=== PATIENT | female | born 1935 | race Caucasian/White ===

== ENCOUNTER 2016-12-27 01:21 | Inpatient (IN) | payer MEDICARE ==
[2016-12-27] MEDS ORDERED: SODIUM CHLORIDE 0.9% 1,000 ML IV STA (01:42)
[2016-12-27 01:58] LABS: Glucose,Whole Blood 110 mg/dL (75-99)
[2016-12-27 01:59] LABS: Basophils # (A) 0.1 k/uL (0-0.2); Basophils % (A) 1 %; CH 29.9; CHCM 32.3; Eosinophils # (A) 0.4 k/uL (0-0.7); Eosinophils % (A) 5 %; HCT 44.1 % (34.0-46.0); HDW 2.69; HGB 14.3 gm/dL (11.4-16.0); Luc # (Auto) 0.15; Luc % (Auto) 2; Lymphocytes # (A) 1.9 k/uL (1.0-4.8); Lymphocytes % (A) 23 %; MCH 30.1 pg (25.0-35.0); MCHC 32.3 g/dL (31.0-37.0); MCV 93.1 fL (80.0-100.0); Mean Platelet Volume 8.2; Monocytes # (A) 0.5 k/uL (0-1.0); Monocytes % (A) 6 %; Neutrophils # (A) 5.2 k/uL (1.3-7.7); Neutrophils % (A) 63 %; RBC 4.73 m/uL (3.80-5.40); WBC 8.3 k/uL (3.8-10.6); WBC (Perox) 7.79
[2016-12-27] MEDS ORDERED: RX INFO: IV CONTRAST WAS GIVEN 1 EACH MISC MISCELLANE PRN (02:02)
[2016-12-27 02:03] LABS: INR 1.1 (<1.2); Prothrombin Time 11.2 sec (9.0-12.0)
[2016-12-27 02:04] LABS: ALT 37 U/L (9-52); AST 30 U/L (14-36); Alkaline Phosphatase 209 U/L (38-126); Anion Gap 13 mmol/L; Blood Urea Nitrogen 24 mg/dL (7-17); Calcium 10.2 mg/dL (8.4-10.2); Carbon Dioxide 20 mmol/L (22-30); Chloride 107 mmol/L (98-107); Glucose 118 mg/dL (74-99); Non-African American GFR(MDRD) >60 (>60 ml/min/1.73 sqM); Potassium 4.6 mmol/L (3.5-5.1); Sodium 140 mmol/L (137-145); Total Bilirubin 0.6 mg/dL (0.2-1.3)
--- NOTE | 2016-12-27 02:04 | CT ---
EXAMINATION TYPE: CT brain wo con for TPA DATE OF EXAM: 12/27/2016 COMPARISON: 04/05/2010 HISTORY: R/O Stroke CT DLP: 1047.10 mGycm Automated exposure control for dose reduction was used. FINDINGS: There is cerebral cortical atrophy. There is patchy hypodensity in the periventricular white matter. There is no mass effect nor midline shift. There is no sign of intracranial hemorrhage. The calvarium is intact. IMPRESSION: CEREBRAL ATROPHY AND CHRONIC SMALL VESSEL ISCHEMIA THAT HAS PROGRESSED COMPARED TO OLD EXAM. NO HEMOR RHAGE.
--- NOTE | 2016-12-27 02:05 | XR ---
EXAMINATION TYPE: XR chest 1V portable DATE OF EXAM: 12/27/2016 COMPARISON: NONE HISTORY: Altered mental status TECHNIQUE: Single frontal view of the chest is obtained. FINDINGS: There is no heart failure nor confluent pneumonic infiltrate. Thoracic aorta is atheromato us. There is no pleural effusion. There are chest leads. There is advanced osteoarthritis in the shou lder joints. IMPRESSION: There is improved inspiration compared to last exam.
[2016-12-27] MEDS ORDERED: MORPHINE SULFATE 2 MG/ML SYRINGE IV STA (02:20)
[2016-12-27 02:32] LABS: Creatine Kinase 25 U/L (30-135)
--- NOTE | 2016-12-27 02:37 | CT ---
EXAMINATION TYPE: CT angio head neck DATE OF EXAM: 12/27/2016 HISTORY: code stroke COMPARISON: NONE CT DLP: 439.70 mGycm. Automated Exposure Control for Dose Reduction was Utilized. TECHNIQUE: CTA scan of the neck is performed with IV Contrast, patient injected with 65 mL of Omnipa que 350, axial images are obtained, coronal and sagittal reformatted images are reviewed. Three-D rec onstructed images are created on an independent workstation and reviewed. FINDINGS: There is normal branching pattern of the great vessels on the aortic arch. There is no evidence of th oracic aortic aneurysm or dissection. There is arterial flow in both vertebral arteries which are fairly symmetric. There is arterial flow in the vertebrobasilar artery system. There is arterial flow in the common internal and external carotid arteries bilaterally. There is min imal plaque at the carotid artery bifurcations. Lumen narrowing is less than 20% on the left side. Th ere is no evidence of any stenosis at the right carotid artery bifurcation.. There is no evidence of carotid dissection. There is arterial flow in the anterior middle and posterior cerebral arteries. There is no evidence o f aneurysm or neovascularity. I do not see any significant intracranial arterial stenosis. There is n ormal contrast opacification of the venous sinuses. Conclusion Minimal atherosclerotic disease. No evidence of hemodynamically significant stenosis. Normal CT angio gram of the brain.
[2016-12-27 02:46] LABS: Creatine Kinase MB 0.6 ng/mL (0.0-2.4); Troponin I <0.012 ng/mL (0.000-0.034)
[2016-12-27] MEDS ORDERED: HYDROmorphone 1 MG/ML 1 ML SYRINGE IVP STA (02:59)
--- NOTE | 2016-12-27 02:59 | ED ---
Weakness HPI - General Chief complaint: Weakness Stated complaint: left side pain arm/leg Time Seen by Provider: 12/27/16 01:41 Source: patient, EMS Mode of arrival: EMS - History of Present Illness Initial comments: This patient is an 81-year-old woman brought by EMS to be evaluated for left upper extremity weakness. The patient reportedly had gotten up tonight at 12: 15 AM, and found that when she attempted to walk her left arm was weak. Patient phoned her son, and when symptoms did not improve they had EMS bring her to the emergency department. The patient symptoms are worsening left arm but she also did have some left leg heaviness. The patient at baseline walks with a walker, and she does have severe rheumatoid arthritis but they state is otherwise functional. MD Complaint: focal weakness, difficulty walking Onset/Timin -: hour(s) Location: LUE Severity: severe Consistency: constant Improves with: none Worsens with: none - Related Data Home Medications Medication Instructions Recorded Confirmed Aspirin 325 mg PO DAILY 07/08/13 06/11/14 Levothyroxine Sodium [Levoxyl] 112 mcg PO DAILY 07/08/13 06/11/14 Naproxen 500 mg PO Q12HR 07/08/13 06/11/14 Ranitidine HCl 150 mg PO BID 07/08/13 06/11/14 Valsartan [Diovan] 80 mg PO DAILY 07/08/13 06/11/14 fentaNYL 25MCG/HR PATCH [Duragesic 1 applic TOPICAL DIRECTED 07/08/13 25MCG/HR] Cholecalciferol (Vitamin D3) 1 tab PO DAILY 12/11/13 06/11/14 [Vitamin D] Allergies Allergy/AdvReac Type Severity Reaction Status Date / Time codeine AdvReac Nausea Verified 06/11/14 09:37 Review of Systems ROS Statement: Those systems with pertinent positive or pertinent negative responses have been documented in the HPI. ROS Other: All systems not noted in ROS Statement are negative. Constitutional: Reports: weakness (Left upper extremity) Eyes: Denies: vision change Respiratory: Denies: cough, dyspnea, wheezes Cardiovascular: Denies: chest pain, palpitations, orthopnea, syncope Gastrointestinal: Denies: abdominal pain, nausea, vomiting Genitourinary: Denies: dysuria, hematuria Musculoskeletal: Denies: back pain Skin: Denies: rash Neurological: Reports: weakness, abnormal gait. Denies: headache, numbness, paresthesias, confusion Hematological/Lymphatic: Denies: easy bleeding Past Medical History Past Medical History: GERD/Reflux, Hyperlipidemia, Hypertension, Musculoskeletal Disorder, Osteoarthritis (OA), Skin Disorder, Thyroid Disorder Additional Past Medical History / Comment(s): DIET CONTROLLED DIABETIC; WOUND ON BUTTOCKS; PINCHED NERVE-AFFECTS LEGS History of Any Multi-Drug Resistant Organisms: None Reported Past Surgical History: Adenoidectomy, Appendectomy, Hernia Repair, Hysterectomy , Joint Replacement, Tonsillectomy Additional Past Surgical History / Comment(s): PRABHAKAR. KNEE REPLACEMENTS , UMBILICAL HERNIA Past Anesthesia/Blood Transfusion Reactions: No Reported Reaction Past Psychological History: No Psychological Hx Reported Smoking Status: Former smoker Past Alcohol Use History: Occasional Past Drug Use History: None Reported - Past Family History Father Family Medical History: Cancer Additional Family Medical History / Comment(s): PROSTATE CA Brother(s) Family Medical History: Cancer, Diabetes Mellitus Additional Family Medical History / Comment(s): ONE BROTHER HAD PROSTATE CA & ANOTHER BROTHER HAS DIABETES General Exam General appearance: alert, in no apparent distress, obese Head exam: Present: atraumatic, normocephalic Eye exam: Present: normal appearance. Absent: scleral icterus, conjunctival injection ENT exam: Present: normal oropharynx Neck exam: Present: normal inspection, full ROM Respiratory exam: Present: normal lung sounds bilaterally. Absent: respiratory distress, wheezes, rales, rhonchi, stridor Cardiovascular Exam: Present: regular rate, normal rhythm, normal heart sounds. Absent: systolic murmur, diastolic murmur, rubs, gallop GI/Abdominal exam: Present: soft. Absent: distended, tenderness, guarding, rebound, mass Extremities exam: Present: normal inspection, normal capillary refill. Absent: pedal edema, calf tenderness Neurological exam: Present: alert, oriented X3, CN II-XII intact, motor sensory deficit Expanded Neurological exam: Present: protecting the airway. Absent: memory loss-remote event, memory loss-recent event, receptive aphasia, expressive aphasia Patient oriented to: Present: person, place, time Speech: Present: fluid speech Cranial nerves: EOM's Intact: Normal, Gag Reflex: Normal, Tongue Deviation: Normal, Facial Sensation: Normal Motor strength exam: RUE: 4, LUE: 4, RLE: 5, LLE: 3 Eye Response: (4) open spontaneously Motor Response: (6) obeys commands Verbal Response: (5) oriented Skin exam: Present: warm, dry, intact, normal color. Absent: rash Course Vital Signs 12/27/16 12/27/16 12/27/16 01:22 01:26 01:44 Temperature 99.2 F Pulse Rate 76 82 73 Respiratory 18 16 18 Rate Blood Pressure 169/92 208/79 225/112 O2 Sat by Pulse 97 98 100 Oximetry 12/27/16 12/27/16 12/27/16 01:54 02:08 02:34 Temperature Pulse Rate 75 75 70 Respiratory 16 16 16 Rate Blood Pressure 183/78 182/81 190/120 O2 Sat by Pulse 99 100 100 Oximetry 12/27/16 02:45 Temperature Pulse Rate 70 Respiratory 16 Rate Blood Pressure 204/97 O2 Sat by Pulse 99 Oximetry EKG Findings - EKG Results: EKG: interpreted by ERMD, sinus rhythm (Rate 77 bpm), normal axis, normal ST/T - Blocks, Rozel, Hypertrophy, ST Abn: Chamber hypertrophy or enlargement: only voltage criteria for left ventricular hypertrophy Medical Decision Making - Medical Decision Making Patient is an 81-year-old woman who acutely developed left sided weakness, greater in the upper extremity at approximately 12:15 this morning. Patient is brought by EMS and code stroke is activated. The patient is sent for CT and CT angiogram which were both negative. I had discussed the case with stroke team and then reevaluated the patient. At this point the patient states that she is feeling a little better and she has much improved vehicle inspector strength and she is also able to support the left arm for 5 seconds. In light of this marked improvement , TPA will be held. I did discuss the risks, benefits, and indications of TPA with patient and family and at this point there and agreement. Case discussed with Dr. Koenig who is on-call and will admit. - Lab Data Result diagrams: 12/27/16 01:34 12/27/16 01:34 Lab Results 12/27/16 12/27/16 12/27/16 Range/Units 01:34 01:34 01:34 WBC 8.3 (3.8-10.6) k/uL RBC 4.73 (3.80-5.40) m/uL Hgb 14.3 (11.4-16.0) gm/dL Hct 44.1 (34.0-46.0) % MCV 93.1 (80.0-100.0) fL MCH 30.1 (25.0-35.0) pg MCHC 32.3 (31.0-37.0) g/dL RDW 15.0 (11.5-15.5) % Plt Count 305 (150-450) k/uL Neutrophils % 63 % Lymphocytes % 23 % Monocytes % 6 % Eosinophils % 5 % Basophils % 1 % Neutrophils # 5.2 (1.3-7.7) k/uL Lymphocytes # 1.9 (1.0-4.8) k/uL Monocytes # 0.5 (0-1.0) k/uL Eosinophils # 0.4 (0-0.7) k/uL Basophils # 0.1 (0-0.2) k/uL PT (9.0-12.0) sec INR (<1.2) APTT (22.0-30.0) sec Sodium 140 (137-145) mmol/L Potassium 4.6 (3.5-5.1) mmol/L Chloride 107 (98-107) mmol/L Carbon Dioxide 20 L (22-30) mmol/L Anion Gap 13 mmol/L BUN 24 H (7-17) mg/dL Creatinine 0.70 (0.52-1.04) mg/dL Est GFR (MDRD) Af Amer >60 (>60 ml/min/1.73 sqM) Est GFR (MDRD) Non-Af >60 (>60 ml/min/1.73 sqM) Glucose 118 H (74-99) mg/dL POC Glucose (mg/dL) (75-99) mg/dL POC Glu Sap Basis Consultant ID Calcium 10.2 (8.4-10.2) mg/dL Total Bilirubin 0.6 (0.2-1.3) mg/dL AST 30 (14-36) U/L ALT 37 (9-52) U/L Alkaline Phosphatase 209 H (38-126) U/L Total Creatine Kinase 25 L (30-135) U/L CK-MB (CK-2) 0.6 (0.0-2.4) ng/mL CK-MB (CK-2) Rel Index 2.4 Troponin I <0.012 (0.000-0.034) ng/mL Total Protein 7.0 (6.3-8.2) g/dL Albumin 3.9 (3.5-5.0) g/dL 12/27/16 12/27/16 Range/Units 01:34 01:45 WBC (3.8-10.6) k/uL RBC (3.80-5.40) m/uL Hgb (11.4-16.0) gm/dL Hct (34.0-46.0) % MCV (80.0-100.0) fL MCH (25.0-35.0) pg MCHC (31.0-37.0) g/dL RDW (11.5-15.5) % Plt Count (150-450) k/uL Neutrophils % % Lymphocytes % % Monocytes % % Eosinophils % % Basophils % % Neutrophils # (1.3-7.7) k/uL Lymphocytes # (1.0-4.8) k/uL Monocytes # (0-1.0) k/uL Eosinophils # (0-0.7) k/uL Basophils # (0-0.2) k/uL PT 11.2 (9.0-12.0) sec INR 1.1 (<1.2) APTT 26.0 (22.0-30.0) sec Sodium (137-145) mmol/L Potassium (3.5-5.1) mmol/L Chloride (98-107) mmol/L Carbon Dioxide (22-30) mmol/L Anion Gap mmol/L BUN (7-17) mg/dL Creatinine (0.52-1.04) mg/dL Est GFR (MDRD) Af Amer (>60 ml/min/1.73 sqM) Est GFR (MDRD) Non-Af (>60 ml/min/1.73 sqM) Glucose (74-99) mg/dL POC Glucose (mg/dL) 110 H (75-99) mg/dL POC Glu Sap Basis Consultant ID Domenic, Shantelle Calcium (8.4-10.2) mg/dL Total Bilirubin (0.2-1.3) mg/dL AST (14-36) U/L ALT (9-52) U/L Alkaline Phosphatase (38-126) U/L Total Creatine Kinase (30-135) U/L CK-MB (CK-2) (0.0-2.4) ng/mL CK-MB (CK-2) Rel Index Troponin I (0.000-0.034) ng/mL Total Protein (6.3-8.2) g/dL Albumin (3.5-5.0) g/dL Disposition Clinical Impression: Weakness of left upper extremity, TIA (transient ischemic attack) Disposition: ADMITTED IP TO THIS HOSP Condition: Serious Referrals: Rashawn Lau MD [Primary Care Provider] - 1-2 days
[2016-12-27] MEDS ORDERED: ASPIRIN 81 MG PO STA (03:01)
[2016-12-27] MEDS ORDERED: ENALAPRILAT 1.25 MG/ML 1 ML VIAL IVP PRN (03:32)
[2016-12-27 04:05] VITALS: BMI 37.2
[2016-12-27] MEDS: SODIUM CHLORIDE 0.9% 1,000 ML IV SCH ×3 (04:33→22:40)
[2016-12-27] MEDS: LEVOTHYROXINE 112 MCG TAB PO SCH (07:02)
[2016-12-27] MEDS ORDERED: CHOLECALCIFEROL 400 UNIT TAB PO SCH (09:00)
[2016-12-27] MEDS ORDERED: NAPROXEN 250 MG TAB PO SCH (09:00)
[2016-12-27] MEDS: VALSARTAN 80 MG TAB PO SCH (09:13)
[2016-12-27] MEDS: FAMOTIDINE 20 MG/2 ML VIAL IV SCH ×2 (09:14→22:35)
--- NOTE | 2016-12-27 10:28 | ECHOF ---
Referral Reason:Thrombus MEASUREMENTS -------- HEIGHT: 160.0 cm WEIGHT: 94.8 kg BP: 150/82 IVSd: 1.8 cm (0.6 - 1.1) LVIDd: 2.2 cm (3.9 - 5.3) LVPWd: 1.8 cm (0.6 - 1.1) IVSs: 2.1 cm LVIDs: 1.6 cm LVPWs: 2.2 cm Ao Diam: 3.4 cm (2.0 - 3.7) AV Cusp: 1.6 cm (1.5 - 2.6) LA Diam: 2.7 cm (2.7 - 3.8) MV E Cruz: 0.56 m/s MV DecT: 165 ms MV A Cruz: 0.85 m/s MV E/A Ratio: 0.66 RAP: 5.00 mmHg RVSP: 11.33 mmHg FINDINGS -------- Sinus rhythm. This was a technically difficult study with suboptimal views. The left ventricular size is normal. There is moderate concentric left ventricular hypertrophy. O verall left ventricular systolic function is low-normal with, an EF between 50 - 55 %. The RV was not well visualized. The left atrium was not well visualized. The right atrium was not well visualized. 1.5mg of Definity was utilized for enhancement of images The aortic valve was not well visualized. The mitral valve was not well visualized. There is trace mitral regurgitation. The tricuspid valve was not well visualized. Trace tricuspid regurgitation present. The right carmen tricular systolic pressure, as measured by Doppler, is 11.33mmHg. The pulmonic valve was not well visualized. There is no pericardial effusion. CONCLUSIONS -------- 1. Sinus rhythm. 2. This was a technically difficult study with suboptimal views. 3. There is moderate concentric left ventricular hypertrophy. 4. Overall left ventricular systolic function is low-normal with, an EF between 50 - 55 %. 5. The RV was not well visualized. 6. The left atrium was not well visualized. 7. The right atrium was not well visualized. 8. 1.5mg of Definity was utilized for enhancement of images 9. The aortic valve was not well visualized. 10. There is trace mitral regurgitation. 11. Trace tricuspid regurgitation present. 12. The right ventricular systolic pressure, as measured by Doppler, is 11.33mmHg. 13. The pulmonic valve was not well visualized. 14. There is no pericardial effusion. BILINGUAL SECRETARY: Josefa Knox RDCS
[2016-12-27] MEDS ORDERED: DIAZEPAM 5 MG TAB PO STA (12:55)
--- NOTE | 2016-12-27 14:02 | US ---
EXAMINATION TYPE: US carotid duplex BILAT DATE OF EXAM: 12/27/2016 COMPARISON: NONE CLINICAL HISTORY: Stenosis. EXAM MEASUREMENTS: RIGHT: Peak Systolic Velocity (PSV) cm/sec ----- Right CCA: 76.9 ----- Right ICA: 55.5 ----- Right ECA: 85.7 ICA/CCA ratio: 0.7 RIGHT: End Diastole cm/sec ----- Right CCA: 17.3 ----- Right ICA: 12.4 ----- Right ECA: 5.5 LEFT: Peak Systolic Velocity (PSV) cm/sec ----- Left CCA: 73.6 ----- Left ICA: 58.1 ----- Left ECA: 92.5 ICA/CCA ratio: 0.8 LEFT: End Diastole cm/sec ----- Left CCA: 16.7 ----- Left ICA: 15.3 ----- Left ECA: 7.0 VERTEBRALS (direction of flow): Right Vertebral: Antegrade Left Vertebral: Antegrade Rhythm: Normal No significant velocity elevations IMPRESSION: 1. Intimal thickening and focal areas of plaque with no significant hemodynamic stenosis.
[2016-12-27] MEDS: MUPIROCIN 2% OINT 22 GM TUBE TOPICAL SCH ×2 (15:00→21:10)
--- NOTE | 2016-12-27 15:45 | P.HPIM ---
History of Present Illness H&P Date: 12/27/16 Chief Complaint: Left weakness This is an 81-year-old female patient of Dr. Lau with a past medical history of GERD, hypertension, hyperlipidemia, hypothyroidism, osteoarthritis, spinal stenosis. He has previous TIA 5 years ago with no deficits, patient did not have any seizure disorder does not follow up with any neurologist she is being monitored closely for carotid stenosis with a Doppler, there is no stenosis noted on last carotid Dopplers. She Admitted to the hospital secondary to left-sided weakness. Patient was doing well until day had a follow-up outpatient, patient tried leaning over to get the power plug on , in so doing patient noticed that she was leaning more in the left side, noted to have left leg weakness first and then left arm weakness. This happened at 12 :15 in the morning, patient cold the daughter at 12: 29, and until her ER admission, patient still had the left-sided weakness, and was seen at the emergency room at 1: 41 a.m.. Patient mentions that she is improving however on my examination today. Patient still has persistent left upper extremity left lower extremity weakness, there is no discharge no dysarthria, no syncope no headache. Patient has underlying walker for comment ambulation secondary to severe rheumatoid arthritis, no recent trauma no recent falls.e has previous TIA 5 years ago with no deficits, patient did not have any seizure disorder does not follow up with any neurologist she is being monitored closely for carotid stenosis with a Doppler, there is no stenosis noted on last carotid Dopplers Years ago. The emergency room she had a CAT scan of the brain shows cerebral atrophy and chronic small vessel ischemia that has progressed compared to previous examination, no hemorrhage noted. CTA of the neck shows minimal atherosclerotic disease with no hemodynamically significant stenosis, normal CTA of the brain. Chest x-ray shows improved inspiration compared to previous examination no infiltrate no aneurysm. Echocardiogram performed showing sinus rhythm optimal views moderate concentric LVH, ejection fraction 50-55%, no aortic stenosis, however valves are not well visualized trace MR and trace TR, right ventricle systolic pressure is 11 normal. Review of Systems Constitutional: Reports as per HPI, Denies anorexia, Denies chills, Denies chronic headaches, Denies chronic pain, Denies daytime sleepiness, Denies fatigue, Denies fever, Denies lethargy, Denies malaise, Denies night sweats, Denies poor appetite, Denies sweats, Denies weakness, Denies weight gain, Denies weight loss Ears, nose, mouth and throat: Reports as per HPI, Denies ant. neck pain, Denies bleeding gums, Denies dental pain, Denies dysphagia, Denies epistaxis, Denies headache, Denies hoarseness, Denies mouth pain, Denies nasal congestion, Denies nasal discharge, Denies neck fullness/pressure, Denies neck lump, Denies nose pain, Denies odynophagia, Denies post-nasal drip, Denies sinus pain, Denies sinus pressure, Denies swelling in mouth, Denies swelling in throat, Denies sore throat, Denies vertigo, Denies voice changes Cardiovascular: Reports as per HPI, Reports shortness of breath, Denies chest pain, Denies claudication, Denies decreased exercise tolerance, Denies dyspnea on exertion, Denies edema, Denies high blood pressure, Denies irregular heart beat, Denies leg edema, Denies lightheadedness, Denies orthopnea, Denies palpitations, Denies paroxysmal nocturnal dyspnea, Denies phlebitis, Denies rapid heart beat, Denies syncope Respiratory: Reports as per HPI, Denies congestion, Denies cough, Denies cough with sputum, Denies dyspnea, Denies excessive sputum, Denies hemoptysis, Denies home oxygen, Denies pain, Denies pain on inspiration, Denies pleurisy, Denies respiratory infections, Denies sleep apnea, Denies snoring, Denies wheezing Gastrointestinal: Reports as per HPI, Denies abdominal pain, Denies belching, Denies bloating, Denies BRBPR, Denies change in bowel habits, Denies coffee ground emesis, Denies constipation, Denies diarrhea, Denies dyspepsia, Denies early satiety, Denies excessive gas, Denies heartburn, Denies hematemesis, Denies hematochezia, Denies indigestion, Denies jaundice, Denies lactose intolerance, Denies loss of appetite, Denies melena, Denies nausea, Denies vomiting Genitourinary: Reports as per HPI Menstruation: Reports as per HPI Musculoskeletal: Reports as per HPI, Reports gait dysfunction, Reports limitation of motion, Reports muscle weakness, Denies arm numbness/tingling, Denies atrophy, Denies fractures, Denies frequent falls, Denies hot joints, Denies leg numbness/tingling, Denies loss of height, Denies low back pain, Denies morning stiffness, Denies muscle cramps, Denies myalgias, Denies neck pain, Denies neck stiffness, Denies prior amputations, Denies redness of joints , Denies shooting arm pain, Denies shooting leg pain Integumentary: Reports as per HPI, Denies acne, Denies boils, Denies brittle nails, Denies change in hair/nails, Denies color changes, Denies darkening of skin, Denies depigmentation, Denies dryness, Denies foot/leg ulcers, Denies growths, Denies hirsutism, Denies lesions, Denies onychomycosis, Denies pruritus , Denies rash, Denies sores, Denies striae, Denies unusual bruising, Denies wounds Neurological: Reports as per HPI, Reports gait dysfunction, Reports motor disturbance, Reports weakness, Denies aphasia, Denies ataxia, Denies balance difficulties, Denies burning pain, Denies change in mentation, Denies change in smell/taste, Denies change in speech, Denies confusion, Denies convulsions, Denies double vision, Denies head injury, Denies headaches, Denies hearing difficulties, Denies lack of coordination, Denies loss of vision, Denies memory loss, Denies migraines, Denies numbness, Denies paralysis, Denies paresthesias, Denies seizures, Denies sensory deficit, Denies spasticity, Denies syncope, Denies tic, Denies tingling, Denies transient paralysis, Denies tremors, Denies vertigo, Denies visual changes Psychiatric: Reports as per HPI, Denies anhedonia, Denies anxiety, Denies anxiety attacks, Denies change in appetite, Denies change in libido, Denies change in sleep habits, Denies confusion, Denies depression, Denies difficulty concentrating, Denies disorientation, Denies hallucinations, Denies hopelessness , Denies hypersomnia, Denies insomnia, Denies irritability, Denies memory loss, Denies mood swings, Denies paranoia, Denies sadness/tearfulness, Denies sleep disturbances, Denies suicidal ideation Endocrine: Reports as per HPI Hematologic/Lymphatic: Reports as per HPI, Denies easy bleeding, Denies easy bruising, Denies lymphadenopathy, Denies lymphedema, Denies thrombophilia Allergic/Immunologic: Reports as per HPI Past Medical History Past Medical History: GERD/Reflux, Hyperlipidemia, Hypertension, Musculoskeletal Disorder, Osteoarthritis (OA), Skin Disorder, Thyroid Disorder Additional Past Medical History / Comment(s): WOUND ON BUTTOCKS; PINCHED NERVE- AFFECTS LEGS, spinal stenosis History of Any Multi-Drug Resistant Organisms: None Reported Past Surgical History: Adenoidectomy, Appendectomy, Hernia Repair, Hysterectomy , Joint Replacement, Tonsillectomy Additional Past Surgical History / Comment(s): PRABHAKAR. KNEE REPLACEMENTS , UMBILICAL HERNIA Past Anesthesia/Blood Transfusion Reactions: No Reported Reaction Past Psychological History: No Psychological Hx Reported Smoking Status: Former smoker Past Alcohol Use History: Occasional Past Drug Use History: None Reported - Past Family History Father Family Medical History: Cancer Additional Family Medical History / Comment(s): PROSTATE CA Brother(s) Family Medical History: Cancer, Diabetes Mellitus Additional Family Medical History / Comment(s): ONE BROTHER HAD PROSTATE CA & ANOTHER BROTHER HAS DIABETES Medications and Allergies Home Medications Medication Instructions Recorded Confirmed Type Aspirin 325 mg PO DAILY 07/08/13 12/27/16 History Levothyroxine Sodium [Levoxyl] 112 mcg PO DAILY 07/08/13 12/27/16 History Naproxen 500 mg PO Q12HR 07/08/13 12/27/16 History Ranitidine HCl 150 mg PO BID 07/08/13 12/27/16 History Valsartan [Diovan] 80 mg PO DAILY 07/08/13 12/27/16 History Cholecalciferol [Vitamin D3] 1,000 unit PO Q48H 12/27/16 12/27/16 History Allergies Allergy/AdvReac Type Severity Reaction Status Date / Time codeine AdvReac Nausea Verified 12/27/16 07:36 Physical Exam Vitals: Vital Signs Temp Pulse Pulse Resp BP BP Pulse Ox 12/27/16 08:00 97.8 F 70 20 123/51 95 12/27/16 03:45 98.0 F 71 20 150/82 99 12/27/16 03:39 97.9 F 77 16 190/90 99 12/27/16 02:59 72 16 204/88 100 12/27/16 02:45 70 16 204/97 99 12/27/16 02:34 70 16 190/120 100 12/27/16 02:08 75 16 182/81 100 12/27/16 01:54 75 16 183/78 99 12/27/16 01:44 73 18 225/112 100 12/27/16 01:26 82 16 208/79 98 12/27/16 01:22 99.2 F 76 18 169/92 97 Intake and Output 12/26/16 12/27/16 12/27/16 22:59 06:59 14:59 Intake Total 50 118 Balance 50 118 Intake: Intake, IV Titration 50 Amount Sodium Chloride 0.9% 1, 50 000 ml @ 100 mls/hr IV . Q10H MAXINE Rx#:[id number] Oral 118 Other: # Voids 1 Weight 95.254 kg - Constitutional General appearance: cooperative, no acute distress, obese - EENT Eyes: anicteric sclerae, dentition normal, normal appearance ENT: hearing grossly normal, NA/AT, normal oropharynx - Neck Neck: normal ROM - Respiratory Respiratory: bilateral: CTA, negative: diminished, dullness, rales, rhonchi - Cardiovascular Rhythm: regular Heart sounds: normal: S1, S2 Abnormal Heart Sounds: no systolic murmur, no diastolic murmur, no rub, no S3 Gallop, no S4 Gallop, no click, no other - Gastrointestinal General gastrointestinal: normal bowel sounds, soft - Integumentary Integumentary: normal, normal turgor - Neurologic Neurologic: CNII-XII intact - Musculoskeletal Musculoskeletal: gait normal, left sided weakness - Psychiatric Psychiatric: A&O x's 3, appropriate affect, intact judgment & insight Results CBC & Chem 7: 12/27/16 01:34 12/27/16 01:34 Labs: Abnormal Lab Results - Last 24 Hours (Table) 12/27/16 12/27/16 12/27/16 Range/Units 01:34 01:34 01:45 Carbon Dioxide 20 L (22-30) mmol/L BUN 24 H (7-17) mg/dL Glucose 118 H (74-99) mg/dL POC Glucose (mg/dL) 110 H (75-99) mg/dL Alkaline Phosphatase 209 H (38-126) U/L Total Creatine Kinase 25 L (30-135) U/L Laboratory Results WBC 8.3 k/uL (3.8-10.6) 12/27/16 01:34 RBC 4.73 m/uL (3.80-5.40) 12/27/16 01:34 Hgb 14.3 gm/dL (11.4-16.0) 12/27/16 01:34 Hct 44.1 % (34.0-46.0) 12/27/16 01:34 MCV 93.1 fL (80.0-100.0) 12/27/16 01:34 MCH 30.1 pg (25.0-35.0) 12/27/16 01:34 MCHC 32.3 g/dL (31.0-37.0) 12/27/16 01:34 RDW 15.0 % (11.5-15.5) 12/27/16 01:34 Plt Count 305 k/uL (150-450) 12/27/16 01:34 Neutrophils % 63 % 12/27/16 01:34 Lymphocytes % 23 % 12/27/16 01:34 Monocytes % 6 % 12/27/16 01:34 Eosinophils % 5 % 12/27/16 01:34 Basophils % 1 % 12/27/16 01:34 Neutrophils # 5.2 k/uL (1.3-7.7) 12/27/16 01:34 Lymphocytes # 1.9 k/uL (1.0-4.8) 12/27/16 01:34 Monocytes # 0.5 k/uL (0-1.0) 12/27/16 01:34 Eosinophils # 0.4 k/uL (0-0.7) 12/27/16 01:34 Basophils # 0.1 k/uL (0-0.2) 12/27/16 01:34 PT 11.2 sec (9.0-12.0) 12/27/16 01:34 INR 1.1 (<1.2) 12/27/16 01:34 APTT 26.0 sec (22.0-30.0) 12/27/16 01:34 Sodium 140 mmol/L (137-145) 12/27/16 01:34 Potassium 4.6 mmol/L (3.5-5.1) 12/27/16 01:34 Chloride 107 mmol/L (98-107) 12/27/16 01:34 Carbon Dioxide 20 mmol/L (22-30) L 12/27/16 01:34 Anion Gap 13 mmol/L 12/27/16 01:34 BUN 24 mg/dL (7-17) H 12/27/16 01:34 Creatinine 0.70 mg/dL (0.52-1.04) 12/27/16 01:34 Est GFR (MDRD) Af Amer >60 (>60 ml/min/1.73 sqM) 12/27/16 01:34 Est GFR (MDRD) Non-Af >60 (>60 ml/min/1.73 sqM) 12/27/16 01:34 Glucose 118 mg/dL (74-99) H 12/27/16 01:34 POC Glucose (mg/dL) 110 mg/dL (75-99) H 12/27/16 01:45 POC Glu Spiral Winding Machine Helper Shantelle Goss 12/27/16 01:45 Calcium 10.2 mg/dL (8.4-10.2) 12/27/16 01:34 Total Bilirubin 0.6 mg/dL (0.2-1.3) 12/27/16 01:34 AST 30 U/L (14-36) 12/27/16 01:34 ALT 37 U/L (9-52) 12/27/16 01:34 Alkaline Phosphatase 209 U/L (38-126) H 12/27/16 01:34 Total Creatine Kinase 25 U/L (30-135) L 12/27/16 01:34 CK-MB (CK-2) 0.6 ng/mL (0.0-2.4) 12/27/16 01:34 CK-MB (CK-2) Rel Index 2.4 12/27/16 01:34 Troponin I <0.012 ng/mL (0.000-0.034) 12/27/16 14:01 Total Protein 7.0 g/dL (6.3-8.2) 12/27/16 01:34 Albumin 3.9 g/dL (3.5-5.0) 12/27/16 01:34 Thrombosis Risk Factor Assmnt - DVT/VTE Prophylaxis DVT/VTE Prophylaxis: Pharmacologic Prophylaxis ordered, Mechanical Prophylaxis ordered - Choose All That Apply Any of the Below Risk Factors Present?: Yes Each Factor Represents 1 point: Swollen legs (current) Each Risk Factor Represents 3 Points: Age 75 years or older Each Risk Factor Represents 5 Points: Stroke (< 1 month) Thrombosis Risk Factor Assessment Total Risk Factor Score: 9 Thrombosis Risk Factor Assessment Level: Moderate Risk Assessment and Plan Assessment: 1. Left hemiparesis acute, most likely secondary to acute CVA, there is a perceived left hemiparesis noted soon examination, patient is on aspirin 325 mg daily Plavix would be started for double antiplatelet regimen, will decrease aspirin to 81 mg daily while on Plavix. Patient with this in consultation by neurology, and cardiology to evaluate for cryptogenic stroke. Patient did not have any other medical cardiac problems including atrial fibrillation. Carotid Dopplers are negative for hemodynamically significant stenosis, echocardiogram is not optimal for visualization for PFO or ASD, further recommendations come from cardiology and neurology 2. Hypertensive cardiovascular disease with LVH, patient is on valsartan 80 mg daily 3. Hypothyroidism on levothyroxine 112 g daily 4. GERD on maintenance Zantac while on naproxen him a secondary to her double antiplatelet regimen, naproxen has to be discontinued 5. osteoarthritis on maintenance NSAIDs naproxen will be discontinued secondary to her risk for GI upset while on double antiplatelet agents 6. Disorder of bone density, alkaline phosphatase is slightly elevated, patient 's to continue surveillance for osteoporosis as an outpatient. 7. Impaired mobility and balance, pre-existing prior to her current condition, physical therapy will be seeing the patient as well as occupational therapy, walker for community ambulation. 8. Discharge planning patient might benefit from inpatient rehab or subacute rehabilitation depending on her progress.
[2016-12-27] MEDS: CLOPIDOGREL 75 MG TAB PO SCH (18:16)
--- NOTE | 2016-12-27 21:14 | CONS ---
CONSULTATION DATE OF CONSULTATION: 12/27/2016. CHIEF COMPLAINT: Transient ischemic attack. HISTORY OF PRESENT ILLNESS: Mrs. Bernal is a pleasant 81-year-old, female, who was being evaluated by the Neurology Service per the request of Dr. Koenig for a transient ischemic attack. The patient was brought into [facility] Emergency Room after she had a sudden onset of weakness involving her left upper and lower extremity. Her symptoms lasted. Approximately 2 hours and resolved spontaneously. She denies any previous history of strokes or transient ischemic attacks. The patient was on aspirin 325 mg daily at home. In the emergency room, a CT scan of the brain was done, which showed generalized atrophy and small-vessel ischemic changes. The changes were felt to have worsened when compared to her 2011 study. A carotid Doppler was done, which showed no hemodynamically significant stenosis. A CT angiogram of the brain was reviewed and it was normal. A CT angiogram of the neck was also done which showed no significant stenosis. Her CBC, INR, comprehensive metabolic profile and cardiac enzymes were all reviewed and were within normal limits. The patient does have history of hypertension and is on antihypertensive medications at home. Her blood pressure in the emergency room was as high as 208/79. At the time of my evaluation, she is lying in her bed and appears to be in no acute distress. She denies any recurrence of any neurological symptoms. She was started on both Plavix and aspirin on this admission. PAST MEDICAL HISTORY: Hypertension, gastroesophageal reflux disease, dyslipidemia, arthritis, thyroid disorder, history of bilateral knee replacement surgeries, diabetes, history of adenoidectomy, appendectomy, hernia repair, hysterectomy, and tonsillectomy. SOCIAL HISTORY: The patient is a former smoker. She occasionally drinks alcohol. She denies any drug use. FAMILY HISTORY: Positive for cancer and diabetes. HOME MEDICATIONS: Reviewed in the chart. ALLERGIES: CODEINE. REVIEW OF SYSTEMS: CONSTITUTIONAL: Negative. EYES: Negative. ENT: Negative. CARDIOVASCULAR: Negative. RESPIRATORY: Negative. NEUROLOGICAL: As mentioned above. GASTROINTESTINAL: Negative. GENITOURINARY: Negative. MUSCULOSKELETAL: Positive for frequent joint pain. PSYCHIATRIC: Negative. ENDOCRINE: Positive for diabetes and hypothyroidism. DERMATOLOGICAL: Negative. PSYCHIATRIC: Negative. PHYSICAL EXAM: Vital signs show a temperature of 97.8, pulse 74, respiration 18, blood pressure 123/51. GENERAL APPEARANCE: The patient is an obese elderly female, who appears to be in no acute distress. HEENT: Normocephalic, atraumatic, no facial asymmetry is seen, extraocular muscles are intact. NECK: Supple with no masses felt. CARDIOVASCULAR: Regular rate and rhythm. ABDOMEN: Nontender, nondistended. Extremities showed trace edema with no clubbing seen. Neurological exam the patient is alert aware and oriented x3. Speech and language are normal. Strength is full in all 4 extremities. Sensory exam was normal to light touch in all 4 extremities. No facial asymmetry is seen on cranial nerve testing. Although she had full shampooer strength on the left upper extremity, the proximal muscle testing was limited due to chronic left shoulder pain. No seizure-like activity is seen. IMPRESSION: 1. Transient ischemic attack. 2. Left hemiparesis, resolved. 3. Uncontrolled hypertension. 4. Dyslipidemia. RECOMMENDATION: The patient does appear to have suffered a transient ischemic attack with a transient episode of left hemiparesis lasting approximately 2 hours. The patient was on aspirin at home. She has been started on Plavix. From a neurology standpoint, she only needs to be on Plavix for anti-platelet therapy. I will discontinue aspirin. I will order a fasting lipid panel, EEG, and serum homocystine level. Continue IV hydration as tolerated. I do recommend adjusting her blood pressure medications as her blood pressure is not well controlled. Continue neuro checks. I will continue to follow with you. Further recommendations to follow. Thank you for allowing me to participate in the care of your patient. If you have any questions, please feel free to contact me. POLO / K[place]LEY: [id number] /
[2016-12-27] MEDS: traMADol 50 MG TAB PO SCH (22:35)
[2016-12-28] MEDS ORDERED: DIAZEPAM 5 MG TAB PO STA (06:12)
[2016-12-28] MEDS: LEVOTHYROXINE 112 MCG TAB PO SCH (06:20)
[2016-12-28 06:32] LABS: Basophils # (A) 0.1 k/uL (0-0.2); Basophils % (A) 1 %; CH 30.3; Eosinophils # (A) 0.6 k/uL (0-0.7); Eosinophils % (A) 8 %; HCT 40.8 % (34.0-46.0); HDW 2.77; Luc # (Auto) 0.17; Luc % (Auto) 2; Lymphocytes # (A) 1.9 k/uL (1.0-4.8); Lymphocytes % (A) 26 %; MCH 30.4 pg (25.0-35.0); MCHC 31.9 g/dL (31.0-37.0); MCV 95.3 fL (80.0-100.0); Mean Platelet Volume 7.2; Monocytes # (A) 0.5 k/uL (0-1.0); Monocytes % (A) 7 %; Neutrophils % (A) 56 %; RBC 4.28 m/uL (3.80-5.40); WBC 7.2 k/uL (3.8-10.6); WBC (Perox) 7.32
[2016-12-28 06:42] LABS: ALT 57 U/L (9-52); AST 44 U/L (14-36); Alkaline Phosphatase 215 U/L (38-126); Anion Gap 8 mmol/L; Blood Urea Nitrogen 15 mg/dL (7-17); Calcium 9.7 mg/dL (8.4-10.2); Carbon Dioxide 22 mmol/L (22-30); Chloride 109 mmol/L (98-107); Cholesterol 173 mg/dL (<200); Glucose 115 mg/dL (74-99); HDL Cholesterol 43 mg/dL (40-60); Non-African American GFR(MDRD) >60 (>60 ml/min/1.73 sqM); Potassium 4.2 mmol/L (3.5-5.1); Sodium 139 mmol/L (137-145); Total Bilirubin 0.7 mg/dL (0.2-1.3); Total Protein 5.9 g/dL (6.3-8.2)
[2016-12-28] MEDS: SODIUM CHLORIDE 0.9% 1,000 ML IV SCH (08:32)
[2016-12-28] MEDS: VALSARTAN 80 MG TAB PO SCH (08:32)
[2016-12-28] MEDS: FAMOTIDINE 20 MG/2 ML VIAL IV SCH ×2 (08:32→22:50)
[2016-12-28] MEDS: MUPIROCIN 2% OINT 22 GM TUBE TOPICAL SCH ×3 (08:32→23:00)
[2016-12-28] MEDS: CLOPIDOGREL 75 MG TAB PO SCH (08:32)
[2016-12-28] MEDS: traMADol 50 MG TAB PO SCH ×3 (08:34→23:06)
[2016-12-28] MEDS ORDERED: ASPIRIN 81 MG PO SCH (09:00)
[2016-12-28] MEDS ORDERED: ASPIRIN 325 MG TAB PO SCH (09:00)
--- NOTE | 2016-12-28 09:30 | P.CRDCN ---
History of Present Illness Consult date: 12/28/16 Chief complaint: Left sided weakness History of present illness: This is a pleasant 82-year-old female patient with a past medical history significant for hypertension and dyslipidemia who presented to the emergency room with sudden onset of left sided weakness which was resolved completely. No associated symptoms of dizziness or lightheadedness or syncope. No chest pain or chest discomfort. Her symptoms lasted about 2 hours and then resolve spontaneously. Patient denies any previous history of TIA or stroke in the past. The neurologic workup including a computed tomography scan of the brain as well as carotid duplex study came in to be unremarkable. The patient's blood pressure was about 200 mm systolic when she presented to the emergency room. The EKG showed sinus rhythm without any significant ST or T-wave abnormalities. The blood pressure has been under good control. The patient underwent an echocardiogram which revealed normal LV function without any significant valvular abnormalities. Past Medical History Past Medical History: GERD/Reflux, Hyperlipidemia, Hypertension, Musculoskeletal Disorder, Osteoarthritis (OA), Skin Disorder, Thyroid Disorder Additional Past Medical History / Comment(s): WOUND ON BUTTOCKS; PINCHED NERVE- AFFECTS LEGS, spinal stenosis History of Any Multi-Drug Resistant Organisms: None Reported Past Surgical History: Adenoidectomy, Appendectomy, Hernia Repair, Hysterectomy , Joint Replacement, Tonsillectomy Additional Past Surgical History / Comment(s): PRABHAKAR. KNEE REPLACEMENTS , UMBILICAL HERNIA Past Anesthesia/Blood Transfusion Reactions: No Reported Reaction Past Psychological History: No Psychological Hx Reported Smoking Status: Former smoker Past Alcohol Use History: Occasional Past Drug Use History: None Reported - Past Family History Father Family Medical History: Cancer Additional Family Medical History / Comment(s): PROSTATE CA Brother(s) Family Medical History: Cancer, Diabetes Mellitus Additional Family Medical History / Comment(s): ONE BROTHER HAD PROSTATE CA & ANOTHER BROTHER HAS DIABETES Medications and Allergies Home Medications Medication Instructions Recorded Confirmed Type Aspirin 325 mg PO DAILY 07/08/13 12/27/16 History Levothyroxine Sodium [Levoxyl] 112 mcg PO DAILY 07/08/13 12/27/16 History Naproxen 500 mg PO Q12HR 07/08/13 12/27/16 History Ranitidine HCl 150 mg PO BID 07/08/13 12/27/16 History Valsartan [Diovan] 80 mg PO DAILY 07/08/13 12/27/16 History Cholecalciferol [Vitamin D3] 1,000 unit PO Q48H 12/27/16 12/27/16 History Allergies Allergy/AdvReac Type Severity Reaction Status Date / Time codeine AdvReac Nausea Verified 12/27/16 07:36 Physical Exam Vitals: Vital Signs Temp Pulse Resp BP Pulse Ox 12/28/16 08:30 98.7 F 70 16 122/55 100 12/28/16 04:00 97.4 F L 72 18 132/68 95 12/28/16 00:00 97.0 F L 75 18 129/63 94 L 12/27/16 20:00 97.1 F L 76 18 171/72 96 12/27/16 16:00 64 18 138/64 98 12/27/16 12:00 74 18 Intake and Output 12/27/16 12/28/16 12/28/16 22:59 06:59 14:59 Intake Total 240 Output Total 600 1200 Balance -360 -1200 Intake: Oral 240 Output: Urine 600 1200 Other: Voiding Method Bedside Commode Incontinent # Voids 3 6 Weight 104.5 kg - Constitutional General appearance: no acute distress - Respiratory Respiratory: bilateral: CTA - Cardiovascular Rhythm: regular Heart sounds: normal: S1, S2 Results 12/28/16 06:02 12/28/16 06:02 Cardiac Enzymes 12/27/16 12/28/16 Range/Units 14:01 06:02 AST 44 H (14-36) U/L Troponin I <0.012 (0.000-0.034) ng/mL Lipids 12/28/16 Range/Units 06:02 Triglycerides 182 H (<150) mg/dL Cholesterol 173 (<200) mg/dL HDL Cholesterol 43 (40-60) mg/dL CBC 12/28/16 Range/Units 06:02 WBC 7.2 (3.8-10.6) k/uL RBC 4.28 (3.80-5.40) m/uL Hgb 13.0 (11.4-16.0) gm/dL Hct 40.8 (34.0-46.0) % Plt Count 261 (150-450) k/uL Comprehensive Metabolic Panel 12/28/16 Range/Units 06:02 Sodium 139 (137-145) mmol/L Potassium 4.2 (3.5-5.1) mmol/L Chloride 109 H (98-107) mmol/L Carbon Dioxide 22 (22-30) mmol/L BUN 15 (7-17) mg/dL Creatinine 0.60 (0.52-1.04) mg/dL Glucose 115 H (74-99) mg/dL Calcium 9.7 (8.4-10.2) mg/dL AST 44 H (14-36) U/L ALT 57 H (9-52) U/L Alkaline Phosphatase 215 H (38-126) U/L Total Protein 5.9 L (6.3-8.2) g/dL Albumin 3.2 L (3.5-5.0) g/dL Current Medications Generic Name Dose Route Start Last Admin Trade Name Freq PRN Reason Stop Dose Admin Cholecalciferol 400 unit 12/28/16 12:00 Vitamin D3 PO DAILY@1200 MAXINE Clopidogrel Bisulfate 75 mg 12/27/16 15:45 12/28/16 08:32 Plavix PO 75 mg DAILY MAXINE Administration Enalaprilat 1.25 mg 12/27/16 03:32 Vasotec IVP Q6HR PRN SBP>220 or DBP > 120 Famotidine 20 mg 12/27/16 09:00 12/28/16 08:32 Pepcid IV 20 mg Q12HR MAXINE Administration Sodium Chloride 1,000 mls @ 100 mls/hr 12/27/16 03:15 12/28/16 08:32 Saline 0.9% IV Not Given .Q10H MAXINE Levothyroxine Sodium 112 mcg 12/27/16 06:30 12/28/16 06:20 Synthroid PO 112 mcg 0630 MAXINE Administration Miscellaneous Information 1 each 12/27/16 02:02 12/27/16 02:22 Rx Info: Iv Contrast Was Given MISCELLANE 12/29/16 02:03 1 each DAILY PRN Administration Per Protocol Mupirocin 1 applic 12/27/16 14:00 12/28/16 08:32 Bactroban Oint TOPICAL 1 applic TID MAXINE Administration Tramadol HCl 50 mg 12/27/16 22:30 12/28/16 08:34 Ultram PO 50 mg TID MAXINE Administration Valsartan 80 mg 12/27/16 09:00 12/28/16 08:32 Diovan PO 80 mg DAILY MAXINE Administration Intake and Output 12/27/16 12/28/16 12/28/16 22:59 06:59 14:59 Intake Total 240 Output Total 600 1200 Balance -360 -1200 Intake: Oral 240 Output: Urine 600 1200 Other: Voiding Method Bedside Commode Incontinent # Voids 3 6 Weight 104.5 kg 12/28/16 06:02 12/28/16 06:02 Assessment and Plan Assessment: This is a pleasant 81-year-old female patient with history of hypertension and dyslipidemia was admitted to the hospital with an episode of TIA. She had a neurologic workup came in to be unremarkable. From the current vascular standpoint overview, the patient is asymptomatic. She underwent an EKG and echo and both came in to be unremarkable. We'll continue monitor the patient for additional 24 hours and adjust the blood pressure medications if we need to. No need for any further cardiac workup at this point.
--- NOTE | 2016-12-28 09:35 | MR ---
EXAMINATION TYPE: MR brain wo/w con DATE OF EXAM: 12/28/2016 COMPARISON: CT brain from yesterday. MRI brain April 06, 2010 HISTORY: CVA per order. Patient admitted one day earlier for neuro deficits in altered mental status, code stroke. TECHNIQUE: Multiplanar, multisequence images of the brain and brainstem is performed without and with IV contras t, utilizing 10 mL intravenous Gadavist . FINDINGS: Diffusion weighted images demonstrate no evidence of a recent infarct or other diffusion ab normality. There is no worrisome extra-axial fluid collection. There is ventricular and sulcal promi nence consistent with diffuse cerebral atrophy. There are focal and confluent areas of T2 hyperintens ity seen throughout the white matter bilaterally. Lesions are nonspecific in appearance and distribut ion but most likely on basis of product of chronic small vessel ischemic change. There is some progre ssion from 2011 MRI noted. Midline structures demonstrate normal morphology. The craniocervical junction appears within normal limits. Post contrast images demonstrate no abnormal enhancement. The dural venous sinuses appear pa tent. The visualized sinuses are clear and the globes are intact. Nasal septum is deviated to right o f midline. IMPRESSION: 1. No evidence of a recent infarct. 2. There is background of Mild to moderate diffuse cerebral atrophy with advanced chronic small vesse l ischemic change that is present.
[2016-12-28] MEDS: CHOLECALCIFEROL 400 UNIT TAB PO SCH (12:08)
--- NOTE | 2016-12-28 12:08 | P.PN ---
Subjective Progress Note Date: 12/28/16 This is an 81-year-old female patient of Dr. Lau with a past medical history of GERD, hypertension, hyperlipidemia, hypothyroidism, osteoarthritis, spinawe arel stenosis. He has previous TIA 5 years ago with no deficits, patient did not have any seizure disorder does not follow up with any neurologist she is being monitored closely for carotid stenosis with a Doppler, there is no stenosis noted on last carotid Dopplers. She Admitted to the hospital secondary to left-sided weakness. Patient was doing well until day had a follow-up outpatient, patient tried leaning over to get the power plug on , in so doing patient noticed that she was leaning more in the left side, noted to have left leg weakness first and then left arm weakness. This happened at 12 :15 in the morning, patient cold the daughter at 12: 29, and until her ER admission, patient still had the left-sided weakness, and was seen at the emergency room at 1: 41 a.m.. Patient mentions that she is improving however on my examination today. Patient still has persistent left upper extremity left lower extremity weakness, there is no discharge no dysarthria, no syncope no headache. Patient has underlying walker for comment ambulation secondary to severe rheumatoid arthritis, no recent trauma no recent falls.e has previous TIA 5 years ago with no deficits, patient did not have any seizure disorder does not follow up with any neurologist she is being monitored closely for carotid stenosis with a Doppler, there is no stenosis noted on last carotid Dopplers Years ago. The emergency room she had a CAT scan of the brain shows cerebral atrophy and chronic small vessel ischemia that has progressed compared to previous examination, no hemorrhage noted. CTA of the neck shows minimal atherosclerotic disease with no hemodynamically significant stenosis, normal CTA of the brain. Chest x-ray shows improved inspiration compared to previous examination no infiltrate no aneurysm. Echocardiogram performed showing sinus rhythm optimal views moderate concentric LVH, ejection fraction 50-55%, no aortic stenosis, however valves are not well visualized trace MR and trace TR, right ventricle systolic pressure is 11 normal. 12/28: Dr. Morin has evaluated him. Homocysteine and EEG are pending. Recommendations were Plavix without aspirin. We are starting the patient on Lipitor. Speech therapy is evaluating. Cardiology has evaluated the patient with no plan for any further interventions. Carotid Dopplers are negative for hemodynamically significant stenosis. Echocardiogram reveals moderate concentric left ventricular hypertrophy, EF ofdata 55%, trace mitral regurgitation, trace tricuspid regurgitation. MRI of the brain showed no recent infarct. There is [id number] diffuse cerebral atrophy with advanced small vessel ischemic change. Patient will be transferred to the [facility] floor. Patient has been seen by physical therapy and occupational therapy with recommendations for subacute rehab. Family have decided on [facility] which we will plan for transfer on Saturday. Objective - Vital Signs Vital signs: Vital Signs Temp 98.7 F 12/28/16 08:30 Pulse 70 12/28/16 08:30 Resp 16 12/28/16 08:30 BP 122/55 12/28/16 08:30 Pulse Ox 100 12/28/16 08:30 Intake & Output 12/27/16 12/28/16 12/28/16 18:59 06:59 18:59 Intake Total 598 Output Total 1800 Balance 598 -1800 Weight 104.5 kg Intake: Oral 598 Output: Urine 1800 Other: Voiding Method Bedside Commode Bedside Commode Incontinent Incontinent # Voids 1 6 # Bowel Movements 0 - Exam General appearance: cooperative, no acute distress, obese - EENT Eyes: anicteric sclerae, dentition normal, normal appearance ENT: hearing grossly normal, NA/AT, normal oropharynx - Neck Neck: normal ROM - Respiratory Respiratory: bilateral: CTA, negative: diminished, dullness, rales, rhonchi - Cardiovascular Rhythm: regular Heart sounds: normal: S1, S2 Abnormal Heart Sounds: no systolic murmur, no diastolic murmur, no rub, no S3 Gallop, no S4 Gallop, no click, no other - Gastrointestinal General gastrointestinal: normal bowel sounds, soft - Integumentary Integumentary: normal, normal turgor - Neurologic Neurologic: CNII-XII intact - Musculoskeletal Musculoskeletal: gait normal, left sided weakness - Psychiatric Psychiatric: A&O x's 3, appropriate affect, intact judgment & insight - Labs CBC & Chem 7: 12/28/16 06:02 12/28/16 06:02 Labs: Abnormal Lab Results - Last 24 Hours (Table) 12/28/16 Range/Units 06:02 Chloride 109 H (98-107) mmol/L Glucose 115 H (74-99) mg/dL AST 44 H (14-36) U/L ALT 57 H (9-52) U/L Alkaline Phosphatase 215 H (38-126) U/L Total Protein 5.9 L (6.3-8.2) g/dL Albumin 3.2 L (3.5-5.0) g/dL Triglycerides 182 H (<150) mg/dL Assessment and Plan Plan: 1. Left hemiparesis acute, secondary to acute TIA, there is a perceived left hemiparesis noted soon examination, continue Plavix and Lipitor. Aspirin discontinued. consults with cardiology and neurology appreciated. EEG is pending. Homocystine level pending. 2. Hypertensive cardiovascular disease with LVH, patient is on valsartan 80 mg daily 3. Hypothyroidism on levothyroxine 112 g daily 4. GERD on maintenance Zantac while on naproxen him a secondary to her double antiplatelet regimen, naproxen has to be discontinued 5. osteoarthritis on maintenance NSAIDs naproxen will be discontinued secondary to her risk for GI upset while on double antiplatelet agents 6. Disorder of bone density, alkaline phosphatase is slightly elevated, patient 's to continue surveillance for osteoporosis as an outpatient. 7. Impaired mobility and balance, pre-existing prior to her current condition, physical therapy will be seeing the patient as well as occupational therapy, walker for community ambulation. Discharge plan: on Saturday under the care of Dr. Lau Impression and plan of care have been directed as dictated by the signing physician. Marquita Ridley nurse practitioner acting as scribe for signing physician.
--- NOTE | 2016-12-28 18:01 | P.PN ---
Subjective Progress Note Date: 12/28/16 Patient is a pleasant 81-year-old female who is being followed by the neurology service for TIA. Patient was brought to [facility] with sudden onset of weakness involving left upper and lower extremity. Her symptoms lasted about 2 hours and have resolved. The patient had been on aspirin 325 mg daily in the home setting. CT of the brain was done which showed generalized atrophy and small vessel ischemic changes. MRI was done which showed cerebral atrophy and chronic small vessel ischemic changes with no evidence of recent infarct. Carotid Doppler was done which showed no hemodynamically significant stenosis. CT angios the brain was reviewed and it was normal. CT angios the neck also showed no significant stenosis. At the time of my evaluation, patient is resting comfortably in bed and appears to be in no acute distress. Family is at the bedside. Objective - Vital Signs Vital signs: Vital Signs Temp 98.3 F 12/28/16 15:04 Pulse 73 12/28/16 15:04 Resp 18 12/28/16 15:04 BP 117/59 12/28/16 15:04 Pulse Ox 94 L 12/28/16 15:04 Intake & Output 12/27/16 12/28/16 12/28/16 18:59 06:59 18:59 Intake Total 598 Output Total 1800 Balance 598 -1800 Weight 104.5 kg Intake: Oral 598 Output: Urine 1800 Other: Voiding Method Bedside Commode Bedside Commode Incontinent Incontinent # Voids 1 6 # Bowel Movements 0 - Exam PHYSICAL EXAM: GENERAL APPEARANCE: Patient is a well-developed, obese female who appears to be in no acute distress. HEENT: Normocephalic, atraumatic, no facial asymmetry is seen. Neck is supple with no masses felt. CARDIOVASCULAR: Regular rate and rhythm. ABDOMEN: Nontender, nondistended. EXTREMITIES: Show no edema or clubbing. NEUROLOGICAL EXAM: Patient is awake, alert, and oriented 3. Speech and language are normal. Strength is full in all 4 extremities. Sensory exam is normal to light touch in all 4 extremities. No facial asymmetry seen on cranial nerve testing. No tremors or seizure-like activity is noted. - Labs CBC & Chem 7: 12/28/16 06:02 12/28/16 06:02 Labs: Abnormal Lab Results - Last 24 Hours (Table) 12/28/16 12/28/16 Range/Units 06:02 06:02 Chloride 109 H (98-107) mmol/L Glucose 115 H (74-99) mg/dL AST 44 H (14-36) U/L ALT 57 H (9-52) U/L Alkaline Phosphatase 215 H (38-126) U/L Total Protein 5.9 L (6.3-8.2) g/dL Albumin 3.2 L (3.5-5.0) g/dL Triglycerides 182 H (<150) mg/dL Homocysteine 14.93 H (4.00-14.00) umol/L Assessment and Plan Plan: Impression: 1. Transient ischemic attack 2. Left hemiparesis, resolved 3. Uncontrolled hypertension 4. Dyslipidemia Recommendation patient does appear to have suffered a transient ischemic attack with transient episode of left hemiparesis lasting approximately 2 hours. Patient has been switched from aspirin to Plavix 75 mg by mouth daily. Patient had fasting lipid panel done which was within normal limits except for elevated triglycerides. I recommend continuing statin therapy. EEGs been ordered. Serum homocystine level is pending. I do recommend strict blood pressure control. Continue neurological checks. I will continue to follow with you. Further recommendations to follow. I performed an examination of the patient and discussed the management with the CHLORINE PLANT OPERATOR. I have reviewed the CHLORINE PLANT OPERATOR notes and agree with the findings and plan of care.
[2016-12-28] MEDS: ATORVASTATIN 20 MG TAB PO SCH (22:58)
[2016-12-29 04:26] LABS: Appearance,Urine Turbid (Clear); Bacteria,Urine Few /hpf; Bilirubin,Urine Negative (Negative); Glucose,Urine (UA) Negative (Negative); Ketones,Urine Negative (Negative); Leukocyte Esterase,Urine Large (Negative); Mucus,Urine Rare /hpf; Nitrite,Urine Positive (Negative); Particle Count 183645; Protein,Urine 1+ (Negative); Specific Gravity,Urine 1.017 (1.001-1.035); Squamous Epithelial Cell,Urine 6 /hpf (0-4); UA Billing (MACRO vs. MICRO) MICRO; Urobilinogen,Urine <2.0 mg/dL (<2.0); WBC,Urine 44 /hpf (0-5)
[2016-12-29] MEDS: LEVOTHYROXINE 112 MCG TAB PO SCH (06:55)
[2016-12-29 07:59] LABS: Basophils # (A) 0.1 k/uL (0-0.2); Basophils % (A) 1 %; CH 30.4; CHCM 31.7; Eosinophils # (A) 0.7 k/uL (0-0.7); Eosinophils % (A) 10 %; HCT 41.3 % (34.0-46.0); HDW 2.84; HGB 12.9 gm/dL (11.4-16.0); Hypochromasia Slight; Luc # (Auto) 0.11; Luc % (Auto) 2; Lymphocytes # (A) 1.9 k/uL (1.0-4.8); Lymphocytes % (A) 27 %; MCH 30.2 pg (25.0-35.0); MCHC 31.3 g/dL (31.0-37.0); MCV 96.5 fL (80.0-100.0); Mean Platelet Volume 7.3; Monocytes # (A) 0.5 k/uL (0-1.0); Monocytes % (A) 7 %; Neutrophils # (A) 3.8 k/uL (1.3-7.7); Neutrophils % (A) 54 %; RBC 4.28 m/uL (3.80-5.40); RDW 14.1 % (11.5-15.5); WBC (Perox) 6.85
[2016-12-29 08:30] LABS: Anion Gap 6 mmol/L; Blood Urea Nitrogen 16 mg/dL (7-17); Calcium 9.4 mg/dL (8.4-10.2); Carbon Dioxide 25 mmol/L (22-30); Chloride 105 mmol/L (98-107); Glucose 99 mg/dL (74-99); Non-African American GFR(MDRD) >60 (>60 ml/min/1.73 sqM); Potassium 4.5 mmol/L (3.5-5.1); Sodium 136 mmol/L (137-145)
[2016-12-29] MEDS: FAMOTIDINE 20 MG/2 ML VIAL IV SCH ×2 (08:45→20:26)
[2016-12-29] MEDS: CLOPIDOGREL 75 MG TAB PO SCH (08:46)
[2016-12-29] MEDS: VALSARTAN 80 MG TAB PO SCH (08:46)
[2016-12-29] MEDS: traMADol 50 MG TAB PO SCH ×3 (08:46→20:33)
[2016-12-29] MEDS: MUPIROCIN 2% OINT 22 GM TUBE TOPICAL SCH ×3 (08:47→20:26)
[2016-12-29] MEDS: HYDROCHLOROTHIAZIDE 12.5 MG CAP PO SCH (08:56)
--- NOTE | 2016-12-29 11:02 | P.PN ---
Subjective Progress Note Date: 12/29/16 Patient is a pleasant 81-year-old female who is being followed by the neurology service for TIA. Patient was brought to [facility] with sudden onset of weakness involving left upper and lower extremity. Her symptoms lasted about 2 hours and have resolved. The patient had been on aspirin 325 mg daily in the home setting. CT of the brain was done which showed generalized atrophy and small vessel ischemic changes. MRI was done which showed cerebral atrophy and chronic small vessel ischemic changes with no evidence of recent infarct. Carotid Doppler was done which showed no hemodynamically significant stenosis. CT angios the brain was reviewed and it was normal. CT angios the neck also showed no significant stenosis. At the time of my evaluation, patient is resting comfortably in bed and appears to be in no acute distress. Family is at the bedside. 12/29/2016 Patient is a pleasant 81-year-old female who is being followed by the neurology service for TIA. Patient is doing much better today. She states she feels she is almost back to baseline. She has had no recurrent symptoms since admission. She is currently on Plavix 75 mg by mouth daily. Blood pressures with better control and is 145/60 today. As you recall, computed tomography scan of the brain showed generalized atrophy and small vessel ischemic changes. Carotid Doppler showed no hemodynamically significant stenosis. CT angiogram of the brain was reviewed and was normal. CT angiogram of the neck was also done which showed no significant stenosis. At the time of my evaluation, patient is resting comfortably in bed and appears to be in no acute distress. Patient states she's had no recurrence of any neurological symptoms. Objective - Vital Signs Vital signs: Vital Signs Temp 97.0 F L 12/29/16 07:00 Pulse 57 L 12/29/16 07:00 Resp 20 12/29/16 07:00 BP 145/60 12/29/16 07:00 Pulse Ox 97 12/29/16 07:00 Intake & Output 12/28/16 12/29/16 12/29/16 18:59 06:59 18:59 Intake Total 240 Balance 240 Intake: Oral 240 Other: Voiding Method Bedside Commode Bedside Commode Incontinent Incontinent # Voids 2 # Bowel Movements 0 - Exam PHYSICAL EXAM: GENERAL APPEARANCE: Patient is a well-developed, obese female who appears to be in no acute distress. HEENT: Normocephalic, atraumatic, no facial asymmetry is seen. Neck is supple with no masses felt. CARDIOVASCULAR: Regular rate and rhythm. ABDOMEN: Nontender, nondistended. EXTREMITIES: Show no edema or clubbing. NEUROLOGICAL EXAM: Patient is awake, alert, and oriented 3. Speech and language are normal. Strength is full in all 4 extremities. Left upper extremity has chronic shoulder rotator cuff symptomology. Sensory exam is normal to light touch in all 4 extremities. No facial asymmetry seen on cranial nerve testing. No tremors or seizure-like activity is noted. - Labs CBC & Chem 7: 12/29/16 07:42 12/29/16 07:42 Labs: Abnormal Lab Results - Last 24 Hours (Table) 12/28/16 12/29/16 12/29/16 Range/Units 06:02 02:50 07:42 Sodium 136 L (137-145) mmol/L Homocysteine 14.93 H (4.00-14.00) umol/L Urine Appearance Turbid H (Clear) Urine Protein 1+ H (Negative) Urine Nitrite Positive H (Negative) Ur Leukocyte Esterase Large H (Negative) Urine WBC 44 H (0-5) /hpf Urine WBC Clumps Moderate H (None) /hpf Ur Squamous Epith Cells 6 H (0-4) /hpf Urine Bacteria Few H (None) /hpf Urine Mucus Rare H (None) /hpf Assessment and Plan Plan: Impression: 1. Transient ischemic attack 2. Left hemiparesis, resolved 3. Uncontrolled hypertension 4. Dyslipidemia Recommendation patient does appear to have suffered a transient ischemic attack with transient episode of left hemiparesis lasting approximately 2 hours. Patient has been switched from aspirin to Plavix 75 mg by mouth daily. Patient had fasting lipid panel done which was within normal limits except for elevated triglycerides. I recommend continuing statin therapy. EEG was done this morning and results are pending. Serum homocystine level is elevated and I will start the patient on Foltx daily. Continue physical therapy. Continue neurological checks. I will continue to follow with you. Further recommendations to follow. I performed an examination of the patient and discussed the management with the FOOD AND NUTRITION SUPERVISOR. I have reviewed the FOOD AND NUTRITION SUPERVISOR notes and agree with the findings and plan of care.
[2016-12-29] MEDS: CHOLECALCIFEROL 400 UNIT TAB PO SCH (12:13)
[2016-12-29] MEDS: CYANOCOBALAMIN-FA-PYRIDOXINE 1 EACH TAB PO SCH (12:17)
--- NOTE | 2016-12-29 12:57 | P.PN ---
Subjective Progress Note Date: 12/29/16 Principal diagnosis: Transient ischemic attack This is an 81-year-old female patient of Dr. Lau with a past medical history of GERD, hypertension, hyperlipidemia, hypothyroidism, osteoarthritis, spinawe arel stenosis. He has previous TIA 5 years ago with no deficits, patient did not have any seizure disorder does not follow up with any neurologist she is being monitored closely for carotid stenosis with a Doppler, there is no stenosis noted on last carotid Dopplers. She Admitted to the hospital secondary to left-sided weakness. Patient was doing well until day had a follow-up outpatient, patient tried leaning over to get the power plug on , in so doing patient noticed that she was leaning more in the left side, noted to have left leg weakness first and then left arm weakness. This happened at 12 :15 in the morning, patient cold the daughter at 12: 29, and until her ER admission, patient still had the left-sided weakness, and was seen at the emergency room at 1: 41 a.m.. Patient mentions that she is improving however on my examination today. Patient still has persistent left upper extremity left lower extremity weakness, there is no discharge no dysarthria, no syncope no headache. Patient has underlying walker for comment ambulation secondary to severe rheumatoid arthritis, no recent trauma no recent falls.e has previous TIA 5 years ago with no deficits, patient did not have any seizure disorder does not follow up with any neurologist she is being monitored closely for carotid stenosis with a Doppler, there is no stenosis noted on last carotid Dopplers Years ago. The emergency room she had a CAT scan of the brain shows cerebral atrophy and chronic small vessel ischemia that has progressed compared to previous examination, no hemorrhage noted. CTA of the neck shows minimal atherosclerotic disease with no hemodynamically significant stenosis, normal CTA of the brain. Chest x-ray shows improved inspiration compared to previous examination no infiltrate no aneurysm. Echocardiogram performed showing sinus rhythm optimal views moderate concentric LVH, ejection fraction 50-55%, no aortic stenosis, however valves are not well visualized trace MR and trace TR, right ventricle systolic pressure is 11 normal. 12/28: Dr. Morin has evaluated him. Homocysteine and EEG are pending. Recommendations were Plavix without aspirin. We are starting the patient on Lipitor. Speech therapy is evaluating. Cardiology has evaluated the patient with no plan for any further interventions. Carotid Dopplers are negative for hemodynamically significant stenosis. Echocardiogram reveals moderate concentric left ventricular hypertrophy, EF ofdata 55%, trace mitral regurgitation, trace tricuspid regurgitation. MRI of the brain showed no recent infarct. There is [id number] diffuse cerebral atrophy with advanced small vessel ischemic change. Patient will be transferred to the [facility] floor. Patient has been seen by physical therapy and occupational therapy with recommendations for subacute rehab. Family have decided on [facility] which we will plan for transfer on Saturday. 12/29 patient is feeling much better is able to move her left upper extremity and left lower extremity as much she was prior to the initiation of symptoms. Patient states she has rotator cuff injuries on the left upper extremity and symptoms could be related to it. Homocysteine levels were elevated patient started on Foltx. Patient needs physical therapy and will be discharged to [facility] on Saturday Objective - Vital Signs Vital signs: Vital Signs Temp 97.0 F L 12/29/16 07:00 Pulse 57 L 12/29/16 07:00 Resp 20 12/29/16 07:00 BP 145/60 12/29/16 07:00 Pulse Ox 97 12/29/16 07:00 Intake & Output 12/28/16 12/29/16 12/29/16 18:59 06:59 18:59 Intake Total 240 Balance 240 Intake: Oral 240 Other: Voiding Method Bedside Commode Bedside Commode Incontinent Incontinent # Voids 2 # Bowel Movements 0 - Exam General appearance: cooperative, no acute distress, obese - EENT Eyes: anicteric sclerae, dentition normal, normal appearance ENT: hearing grossly normal, NA/AT, normal oropharynx - Neck Neck: normal ROM - Respiratory Respiratory: bilateral: CTA, negative: diminished, dullness, rales, rhonchi - Cardiovascular Rhythm: regular Heart sounds: normal: S1, S2 Abnormal Heart Sounds: no systolic murmur, no diastolic murmur, no rub, no S3 Gallop, no S4 Gallop, no click, no other - Gastrointestinal General gastrointestinal: normal bowel sounds, soft - Integumentary Integumentary: normal, normal turgor - Neurologic Neurologic: CNII-XII intact, 3+/5 weakness bilateral lower extremities, left slightly worse than right - Musculoskeletal Musculoskeletal: gait normal, left sided weakness - Psychiatric Psychiatric: A&O x's 3, appropriate affect, intact judgment & insight - Labs CBC & Chem 7: 11/04/17 07:42 12/29/16 07:42 Labs: Abnormal Lab Results - Last 24 Hours (Table) 12/28/16 12/29/16 12/29/16 Range/Units 06:02 02:50 07:42 Sodium 136 L (137-145) mmol/L Homocysteine 14.93 H (4.00-14.00) umol/L Urine Appearance Turbid H (Clear) Urine Protein 1+ H (Negative) Urine Nitrite Positive H (Negative) Ur Leukocyte Esterase Large H (Negative) Urine WBC 44 H (0-5) /hpf Urine WBC Clumps Moderate H (None) /hpf Ur Squamous Epith Cells 6 H (0-4) /hpf Urine Bacteria Few H (None) /hpf Urine Mucus Rare H (None) /hpf Assessment and Plan Plan: 1. Left hemiparesis acute, secondary to acute TIA, there is a perceived left hemiparesis noted soon examination, continue Plavix and Lipitor. Aspirin discontinued. consults with cardiology and neurology appreciated. EEG is pending. Homocystine level slightly increased, patient started on Foltx by neurology 2. Hypertensive cardiovascular disease with LVH, patient is on valsartan 80 mg daily 3. Hypothyroidism on levothyroxine 112 g daily 4. GERD on maintenance Zantac while on naproxen him a secondary to her double antiplatelet regimen, naproxen has to be discontinued 5. osteoarthritis on maintenance NSAIDs naproxen will be discontinued secondary to her risk for GI upset while on double antiplatelet agents 6. Disorder of bone density, alkaline phosphatase is slightly elevated, patient 's to continue surveillance for osteoporosis as an outpatient. 7. Impaired mobility and balance, pre-existing prior to her current condition, physical therapy will be seeing the patient as well as occupational therapy, walker for community ambulation. Discharge plan: on Saturday under the care of Dr. Lau
--- NOTE | 2016-12-29 13:51 | P.PN ---
Subjective Patient was resting comfortably in bed. No chest discomfort no dizziness no lightheadedness. She stated she was not short of breath her blood pressure was mildly elevated intermittently and she takes Diovan 80 mg by mouth daily Afebrile 97.0F pulse rate in the 50s and 60s, blood pressure 147/70 and 145/60 With sounds are reduced bilaterally but there are no crackles no rhonchi Heart sounds S1 and S2 are normal no murmurs or gallops abdomen soft nontender Minimal to no lower extremity edema next EKG showed sinus mechanism Impression Hypertension Patient admitted with acute neurologic event Suggest Watch for atrial fibrillation Antiplatelet agents and statins Hypertension controlled. I'm adding hydrochlorothiazide 12.5 mV by mouth daily to the dose of valsartan Objective - Vital Signs Vital signs: Vital Signs Temp 97.0 F L 12/29/16 07:00 Pulse 57 L 12/29/16 07:00 Resp 20 12/29/16 07:00 BP 145/60 12/29/16 07:00 Pulse Ox 97 12/29/16 07:00 Intake & Output 12/28/16 12/29/16 12/29/16 18:59 06:59 18:59 Intake Total 240 Balance 240 Intake: Oral 240 Other: Voiding Method Bedside Commode Bedside Commode Incontinent Incontinent # Voids 2 # Bowel Movements 0 - Labs CBC & Chem 7: 12/29/16 07:42 12/29/16 07:42 Labs: Abnormal Lab Results - Last 24 Hours (Table) 12/28/16 12/29/16 12/29/16 Range/Units 06:02 02:50 07:42 Sodium 136 L (137-145) mmol/L Homocysteine 14.93 H (4.00-14.00) umol/L Urine Appearance Turbid H (Clear) Urine Protein 1+ H (Negative) Urine Nitrite Positive H (Negative) Ur Leukocyte Esterase Large H (Negative) Urine WBC 44 H (0-5) /hpf Urine WBC Clumps Moderate H (None) /hpf Ur Squamous Epith Cells 6 H (0-4) /hpf Urine Bacteria Few H (None) /hpf Urine Mucus Rare H (None) /hpf
[2016-12-29] MEDS: ATORVASTATIN 20 MG TAB PO SCH (20:26)
[2016-12-29] MEDS: CEFUROXIME 250 MG TAB PO SCH (22:41)
[2016-12-30] MEDS: LEVOTHYROXINE 112 MCG TAB PO SCH (06:47)
[2016-12-30] MEDS: MUPIROCIN 2% OINT 22 GM TUBE TOPICAL SCH ×3 (08:24→22:12)
[2016-12-30] MEDS: CEFUROXIME 250 MG TAB PO SCH ×2 (08:25→22:12)
[2016-12-30] MEDS: traMADol 50 MG TAB PO SCH ×3 (08:25→22:16)
[2016-12-30] MEDS: FAMOTIDINE 20 MG/2 ML VIAL IV SCH ×2 (08:25→22:12)
[2016-12-30] MEDS: VALSARTAN 80 MG TAB PO SCH (08:25)
[2016-12-30] MEDS: CLOPIDOGREL 75 MG TAB PO SCH (08:25)
[2016-12-30] MEDS: HYDROCHLOROTHIAZIDE 12.5 MG CAP PO SCH (08:26)
[2016-12-30 08:58] LABS: Basophils # (A) 0.1 k/uL (0-0.2); Basophils % (A) 1 %; CH 30.9; CHCM 32.4; Eosinophils # (A) 0.6 k/uL (0-0.7); Eosinophils % (A) 9 %; HCT 41.9 % (34.0-46.0); HDW 2.83; Luc % (Auto) 2; Lymphocytes # (A) 1.6 k/uL (1.0-4.8); Lymphocytes % (A) 26 %; MCH 29.8 pg (25.0-35.0); MCHC 31.1 g/dL (31.0-37.0); MCV 95.9 fL (80.0-100.0); Mean Platelet Volume 7.4; Monocytes # (A) 0.4 k/uL (0-1.0); Monocytes % (A) 6 %; Neutrophils # (A) 3.5 k/uL (1.3-7.7); Neutrophils % (A) 57 %; RBC 4.37 m/uL (3.80-5.40); RDW 13.9 % (11.5-15.5); WBC 6.2 k/uL (3.8-10.6); WBC (Perox) 6.32
--- NOTE | 2016-12-30 09:04 | P.PN ---
Subjective Patient is lying comfortably in bed. Afebrile 98.7F, pulse rate in the 60s and 70s with occasional PVCs blood pressure 135/62, 127/39 99/43 and 145/60 mmHg. Yesterday had added low-dose hydrochlorothiazide No chest discomfort no dizziness lightheadedness does not appear to be short of breath Impression Hypertension better controlled today Dyslipidemia, LDL 94 History of TIA Admitted with neurologic symptoms PVCs No evidence for atrial fibrillation so far Suggest Hypertension controlled with valsartan 80 mg daily and hydrochlorothiazide 12.5 g by mouth daily Recommend reducing LDL further, below 70 mg/dL given a history of CVA. I would increase atorvastatin to 40 mg by mouth daily So far we have not documented in atrial fibrillation and one may consider implantation of a loop monitor to look for sudden episodes of atrial fibrillation since this would impact her medical management for future stroke prevention Objective - Vital Signs Vital signs: Vital Signs Temp 98.7 F 12/29/16 23:00 Pulse 72 12/29/16 23:00 Resp 16 12/29/16 23:00 BP 135/62 12/29/16 23:00 Pulse Ox 96 12/29/16 23:00 Intake & Output 12/29/16 12/30/16 12/30/16 19:59 06:59 18:59 Intake Total Balance Intake: Oral Other: # Voids # Bowel Movements - Labs CBC & Chem 7: 12/30/16 08:25 12/29/16 07:42 Labs: Abnormal Lab Results - Last 24 Hours (Table) 12/29/16 Range/Units 07:42 Sodium 136 L (137-145) mmol/L
[2016-12-30 09:13] LABS: Anion Gap 8 mmol/L; Blood Urea Nitrogen 15 mg/dL (7-17); Calcium 9.4 mg/dL (8.4-10.2); Carbon Dioxide 27 mmol/L (22-30); Chloride 103 mmol/L (98-107); Glucose 143 mg/dL (74-99); Non-African American GFR(MDRD) >60 (>60 ml/min/1.73 sqM); Potassium 4.4 mmol/L (3.5-5.1); Sodium 138 mmol/L (137-145)
[2016-12-30] MEDS: CYANOCOBALAMIN-FA-PYRIDOXINE 1 EACH TAB PO SCH (12:46)
[2016-12-30] MEDS: CHOLECALCIFEROL 400 UNIT TAB PO SCH (12:46)
--- NOTE | 2016-12-30 13:52 | P.PN ---
Subjective Progress Note Date: 12/30/16 Patient is a pleasant 81-year-old female who is being followed by the neurology service for TIA. Patient was brought to [facility] with sudden onset of weakness involving left upper and lower extremity. Her symptoms lasted about 2 hours and have resolved. The patient had been on aspirin 325 mg daily in the home setting. CT of the brain was done which showed generalized atrophy and small vessel ischemic changes. MRI was done which showed cerebral atrophy and chronic small vessel ischemic changes with no evidence of recent infarct. Carotid Doppler was done which showed no hemodynamically significant stenosis. CT angios the brain was reviewed and it was normal. CT angios the neck also showed no significant stenosis. At the time of my evaluation, patient is resting comfortably in bed and appears to be in no acute distress. Family is at the bedside. 12/29/2016 Patient is a pleasant 81-year-old female who is being followed by the neurology service for TIA. Patient is doing much better today. She states she feels she is almost back to baseline. She has had no recurrent symptoms since admission. She is currently on Plavix 75 mg by mouth daily. Blood pressures with better control and is 145/60 today. As you recall, computed tomography scan of the brain showed generalized atrophy and small vessel ischemic changes. Carotid Doppler showed no hemodynamically significant stenosis. CT angiogram of the brain was reviewed and was normal. CT angiogram of the neck was also done which showed no significant stenosis. At the time of my evaluation, patient is resting comfortably in bed and appears to be in no acute distress. Patient states she's had no recurrence of any neurological symptoms. 12/30/2016 Patient is a pleasant 81-year-old female who is being followed by the neurology service for TIA. Patient denies any new neurological complaints. Patient states she feels she is back to baseline. She does report mild generalized weakness from lying in bed. Cardiology is adjusting blood pressure medications. Patient is up in the chair at the time of my evaluation. Plan is for patient to be transferred tomorrow would for inpatient rehab tomorrow. Patient was seen and evaluated and appears to be in no acute distress. Objective - Vital Signs Vital signs: Vital Signs Temp 98.3 F 12/30/16 07:00 Pulse 65 12/30/16 07:00 Resp 16 12/30/16 07:00 BP 162/72 12/30/16 07:00 Pulse Ox 95 12/30/16 07:00 Intake & Output 12/29/16 12/30/16 12/30/16 19:59 06:59 18:59 Intake Total 200 Balance 200 Intake: Oral 200 Other: Voiding Method Bedside Commode Bedpan # Voids # Bowel Movements - Exam PHYSICAL EXAM: GENERAL APPEARANCE: Patient is a well-developed, obese female who appears to be in no acute distress. HEENT: Normocephalic, atraumatic, no facial asymmetry is seen. Neck is supple with no masses felt. CARDIOVASCULAR: Regular rate and rhythm. ABDOMEN: Nontender, nondistended. EXTREMITIES: Show no edema or clubbing. NEUROLOGICAL EXAM: Patient is awake, alert, and oriented 3. Speech and language are normal. Strength is full in all 4 extremities. Left upper extremity has chronic shoulder rotator cuff symptomology. Sensory exam is normal to light touch in all 4 extremities. No facial asymmetry seen on cranial nerve testing. No tremors or seizure-like activity is noted. - Labs CBC & Chem 7: 12/30/16 08:25 12/30/16 08:25 Labs: Abnormal Lab Results - Last 24 Hours (Table) 12/30/16 Range/Units 08:25 Glucose 143 H (74-99) mg/dL Assessment and Plan Plan: Impression: 1. Transient ischemic attack 2. Left hemiparesis, resolved 3. Uncontrolled hypertension 4. Dyslipidemia Recommendation patient does appear to have suffered a transient ischemic attack with transient episode of left hemiparesis lasting approximately 2 hours. Patient has been switched from aspirin to Plavix 75 mg by mouth daily. Patient had fasting lipid panel done which was within normal limits except for elevated triglycerides. I recommend continuing statin therapy. EEG was done and results are pending. Serum homocystine level is elevated and I will start the patient on Foltx daily. Continue physical therapy. Continue neurological checks. Barring any abnormality on the EEG, I will continue to follow with you on an as-needed basis. Feel free to call with any questions or concerns I performed an examination of the patient and discussed the management with the DELINQUENT ACCOUNT CLERK. I have reviewed the DELINQUENT ACCOUNT CLERK notes and agree with the findings and plan of care.
--- NOTE | 2016-12-30 14:23 | P.PN ---
Subjective Progress Note Date: 12/30/16 Principal diagnosis: Transient ischemic attack This is an 81-year-old female patient of Dr. Lau with a past medical history of GERD, hypertension, hyperlipidemia, hypothyroidism, osteoarthritis, spinawe arel stenosis. He has previous TIA 5 years ago with no deficits, patient did not have any seizure disorder does not follow up with any neurologist she is being monitored closely for carotid stenosis with a Doppler, there is no stenosis noted on last carotid Dopplers. She Admitted to the hospital secondary to left-sided weakness. Patient was doing well until day had a follow-up outpatient, patient tried leaning over to get the power plug on , in so doing patient noticed that she was leaning more in the left side, noted to have left leg weakness first and then left arm weakness. This happened at 12 :15 in the morning, patient cold the daughter at 12: 29, and until her ER admission, patient still had the left-sided weakness, and was seen at the emergency room at 1: 41 a.m.. Patient mentions that she is improving however on my examination today. Patient still has persistent left upper extremity left lower extremity weakness, there is no discharge no dysarthria, no syncope no headache. Patient has underlying walker for comment ambulation secondary to severe rheumatoid arthritis, no recent trauma no recent falls.e has previous TIA 5 years ago with no deficits, patient did not have any seizure disorder does not follow up with any neurologist she is being monitored closely for carotid stenosis with a Doppler, there is no stenosis noted on last carotid Dopplers Years ago. The emergency room she had a CAT scan of the brain shows cerebral atrophy and chronic small vessel ischemia that has progressed compared to previous examination, no hemorrhage noted. CTA of the neck shows minimal atherosclerotic disease with no hemodynamically significant stenosis, normal CTA of the brain. Chest x-ray shows improved inspiration compared to previous examination no infiltrate no aneurysm. Echocardiogram performed showing sinus rhythm optimal views moderate concentric LVH, ejection fraction 50-55%, no aortic stenosis, however valves are not well visualized trace MR and trace TR, right ventricle systolic pressure is 11 normal. 12/28: Dr. Morin has evaluated him. Homocysteine and EEG are pending. Recommendations were Plavix without aspirin. We are starting the patient on Lipitor. Speech therapy is evaluating. Cardiology has evaluated the patient with no plan for any further interventions. Carotid Dopplers are negative for hemodynamically significant stenosis. Echocardiogram reveals moderate concentric left ventricular hypertrophy, EF ofdata 55%, trace mitral regurgitation, trace tricuspid regurgitation. MRI of the brain showed no recent infarct. There is pioy-wo-rizwvnor diffuse cerebral atrophy with advanced small vessel ischemic change. Patient will be transferred to the [facility] floor. Patient has been seen by physical therapy and occupational therapy with recommendations for subacute rehab. Family have decided on [facility] which we will plan for transfer on Saturday. 12/29 patient is feeling much better is able to move her left upper extremity and left lower extremity as much she was prior to the initiation of symptoms. Patient states she has rotator cuff injuries on the left upper extremity and symptoms could be related to it. Homocysteine levels were elevated patient started on Foltx. Patient needs physical therapy and will be discharged to [facility] on Saturday 12/30: Patient is feeling much better, sitting in chair. Patient is able to participate in physical therapy. Blood pressure better controlled. Patient started on Ceftin for urinary tract infection. Hydrochlorothiazide started at a low-dose of 12.5 mg for blood pressure control along with losartan. Likely discharge tomorrow tomorrow Objective - Vital Signs Vital signs: Vital Signs Temp 98.3 F 12/30/16 07:00 Pulse 65 12/30/16 07:00 Resp 16 12/30/16 07:00 BP 162/72 12/30/16 07:00 Pulse Ox 95 12/30/16 07:00 Intake & Output 12/29/16 12/30/16 12/30/16 19:59 06:59 18:59 Intake Total 200 Balance 200 Intake: Oral 200 Other: Voiding Method Bedside Commode Bedpan # Voids # Bowel Movements - Exam General appearance: cooperative, no acute distress, obese - EENT Eyes: anicteric sclerae, dentition normal, normal appearance ENT: hearing grossly normal, NA/AT, normal oropharynx - Neck Neck: normal ROM - Respiratory Respiratory: bilateral: CTA, negative: diminished, dullness, rales, rhonchi - Cardiovascular Rhythm: regular Heart sounds: normal: S1, S2 Abnormal Heart Sounds: no systolic murmur, no diastolic murmur, no rub, no S3 Gallop, no S4 Gallop, no click, no other - Gastrointestinal General gastrointestinal: normal bowel sounds, soft - Integumentary Integumentary: normal, normal turgor - Neurologic Neurologic: CNII-XII intact, 3+/5 weakness bilateral lower extremities, left slightly worse than right - Musculoskeletal Musculoskeletal: gait normal, left sided weakness - Psychiatric Psychiatric: A&O x's 3, appropriate affect, intact judgment & insight - Labs CBC & Chem 7: 12/30/16 08:25 12/30/16 08:25 Labs: Abnormal Lab Results - Last 24 Hours (Table) 12/30/16 Range/Units 08:25 Glucose 143 H (74-99) mg/dL Assessment and Plan Plan: 1. Left hemiparesis acute, secondary to acute TIA, there is a perceived left hemiparesis noted soon examination, continue Plavix and Lipitor. Aspirin discontinued. consults with cardiology and neurology appreciated. EEG is pending. Homocystine level slightly increased, patient started on Foltx by neurology 2. Hypertensive cardiovascular disease with LVH, patient is on valsartan 80 mg daily 3. Hypothyroidism on levothyroxine 112 g daily 4. GERD on maintenance Zantac while on naproxen him a secondary to her double antiplatelet regimen, naproxen has to be discontinued 5. osteoarthritis on maintenance NSAIDs naproxen will be discontinued secondary to her risk for GI upset while on double antiplatelet agents 6. Disorder of bone density, alkaline phosphatase is slightly elevated, patient 's to continue surveillance for osteoporosis as an outpatient. 7. Impaired mobility and balance, pre-existing prior to her current condition, physical therapy will be seeing the patient as well as occupational therapy, walker for community ambulation. Discharge plan: on Saturday under the care of Dr. Lau
[2016-12-30] MEDS: ATORVASTATIN 20 MG TAB PO SCH (22:12)
[2016-12-31] MEDS: LEVOTHYROXINE 112 MCG TAB PO SCH (06:28)
[2016-12-31 07:42] VITALS: BP 146/69; PULSE 59; RESP 18; TEMP 96.7
[2016-12-31] MEDS: MUPIROCIN 2% OINT 22 GM TUBE TOPICAL SCH (09:42)
[2016-12-31] MEDS: traMADol 50 MG TAB PO SCH (09:42)
[2016-12-31] MEDS: CEFUROXIME 250 MG TAB PO SCH (09:42)
[2016-12-31] MEDS: HYDROCHLOROTHIAZIDE 12.5 MG CAP PO SCH (09:42)
[2016-12-31] MEDS: FAMOTIDINE 20 MG/2 ML VIAL IV SCH (09:42)
[2016-12-31] MEDS: VALSARTAN 80 MG TAB PO SCH (09:42)
[2016-12-31] MEDS: CLOPIDOGREL 75 MG TAB PO SCH (09:42)
[2016-12-31] MEDS: CHOLECALCIFEROL 400 UNIT TAB PO SCH (12:33)
[2016-12-31] MEDS: CYANOCOBALAMIN-FA-PYRIDOXINE 1 EACH TAB PO SCH (12:33)
--- NOTE | 2016-12-31 12:50 | P.DS ---
Providers Date of admission: 12/27/16 03:01 Expected date of discharge: 12/31/16 Attending physician: Petty Koenig Consults: 12/27/16 03:02 Consult Physician Routine Consulting Provider: Isabella Morin Consult Reason/Comments: TIA Do you want consulting provider notified?: Yes 12/27/16 12:56 Consult Physician Routine Consulting Provider: Arsen Pavon Consult Reason/Comments: cryptogenic stroke Do you want consulting provider notified?: Yes Primary care physician: Rashawn Lau [facility] Course: This is an 81-year-old female patient of Dr. Lau with a past medical history of GERD, hypertension, hyperlipidemia, hypothyroidism, osteoarthritis, spinawe arel stenosis. He has previous TIA 5 years ago with no deficits, patient did not have any seizure disorder does not follow up with any neurologist she is being monitored closely for carotid stenosis with a Doppler, there is no stenosis noted on last carotid Dopplers. She Admitted to the hospital secondary to left-sided weakness. Patient was doing well until day had a follow-up outpatient, patient tried leaning over to get the power plug on , in so doing patient noticed that she was leaning more in the left side, noted to have left leg weakness first and then left arm weakness. This happened at 12 :15 in the morning, patient cold the daughter at 12: 29, and until her ER admission, patient still had the left-sided weakness, and was seen at the emergency room at 1: 41 a.m.. Patient mentions that she is improving however on my examination today. Patient still has persistent left upper extremity left lower extremity weakness, there is no discharge no dysarthria, no syncope no headache. Patient has underlying walker for comment ambulation secondary to severe rheumatoid arthritis, no recent trauma no recent falls.e has previous TIA 5 years ago with no deficits, patient did not have any seizure disorder does not follow up with any neurologist she is being monitored closely for carotid stenosis with a Doppler, there is no stenosis noted on last carotid Dopplers Years ago. The emergency room she had a CAT scan of the brain shows cerebral atrophy and chronic small vessel ischemia that has progressed compared to previous examination, no hemorrhage noted. CTA of the neck shows minimal atherosclerotic disease with no hemodynamically significant stenosis, normal CTA of the brain. Chest x-ray shows improved inspiration compared to previous examination no infiltrate no aneurysm. Echocardiogram performed showing sinus rhythm optimal views moderate concentric LVH, ejection fraction 50-55%, no aortic stenosis, however valves are not well visualized trace MR and trace TR, right ventricle systolic pressure is 11 normal. 12/28: Dr. Morin has evaluated him. Homocysteine and EEG are pending. Recommendations were Plavix without aspirin. We are starting the patient on Lipitor. Speech therapy is evaluating. Cardiology has evaluated the patient with no plan for any further interventions. Carotid Dopplers are negative for hemodynamically significant stenosis. Echocardiogram reveals moderate concentric left ventricular hypertrophy, EF ofdata 55%, trace mitral regurgitation, trace tricuspid regurgitation. MRI of the brain showed no recent infarct. There is lnzr-vw-wvtpuqdm diffuse cerebral atrophy with advanced small vessel ischemic change. Patient will be transferred to the [facility] floor. Patient has been seen by physical therapy and occupational therapy with recommendations for subacute rehab. Family have decided on [facility] which we will plan for transfer on Saturday. 12/29 patient is feeling much better is able to move her left upper extremity and left lower extremity as much she was prior to the initiation of symptoms. Patient states she has rotator cuff injuries on the left upper extremity and symptoms could be related to it. Homocysteine levels were elevated patient started on Foltx. Patient needs physical therapy and will be discharged to [facility] on Saturday 12/30: Patient is feeling much better, sitting in chair. Patient is able to participate in physical therapy. Blood pressure better controlled. Patient started on Ceftin for urinary tract infection. Hydrochlorothiazide started at a low-dose of 12.5 mg for blood pressure control along with losartan. Likely discharge tomorrow tomorrow 12/31: Patient has no new complaints. Pain medication has been adjusted to include tramadol and naproxen was discontinued. Patient will be discharge to [facility] on the care of Dr. Trimble today in stable condition. Discharge diagnoses: 1. Left hemiparesis acute, secondary to acute TIA 2. Hypertensive cardiovascular disease with LVH 3. Hypothyroidism 4. GERD 5. osteoarthritis generalized 6. Disorder of bone density 7. Impaired mobility and balance Discharge plan: [facility] on Saturday under the care of Dr. Lau Impression and plan of care have been directed as dictated by the signing physician. Marquita Ridley nurse practitioner acting as scribe for signing physician. Patient Condition at Discharge: Good Plan - Discharge Summary Discharge Rx Participant: No New Discharge Prescriptions: New Atorvastatin [Lipitor] 20 mg PO HS #30 tablet Clopidogrel [Plavix] 75 mg PO DAILY #30 tab Mupirocin 2% Oint [Bactroban 2% Oint] 1 applic TOPICAL TID #1 tube Cefuroxime [Ceftin] 250 mg PO BID #16 tab Axlqwkjbrqgznu-TT-Batbrormtq [Folbic] 1 each PO DAILY@1200 tab Hydrochlorothiazide [Hydrodiuril] 12.5 mg PO DAILY cap traMADol HCl [Ultram] 25 mg PO BID #60 tab Continue Ranitidine HCl 150 mg PO BID Valsartan [Diovan] 80 mg PO DAILY Levothyroxine Sodium [Levoxyl] 112 mcg PO DAILY Cholecalciferol [Vitamin D3] 1,000 unit PO Q48H Discontinued Naproxen 500 mg PO Q12HR Aspirin 325 mg PO DAILY Discharge Medication List Levothyroxine Sodium [Levoxyl] 112 mcg PO DAILY 07/08/13 [History] Ranitidine HCl 150 mg PO BID 07/08/13 [History] Valsartan [Diovan] 80 mg PO DAILY 07/08/13 [History] Cholecalciferol [Vitamin D3] 1,000 unit PO Q48H 12/27/16 [History] Atorvastatin [Lipitor] 20 mg PO HS #30 tablet 12/28/16 [Rx] Clopidogrel [Plavix] 75 mg PO DAILY #30 tab 12/28/16 [Rx] Mupirocin 2% Oint [Bactroban 2% Oint] 1 applic TOPICAL TID #1 tube 12/28/16 [Rx] Cefuroxime [Ceftin] 250 mg PO BID #16 tab 12/31/16 [Rx] Gjiqqprytzktit-FO-Fweqinjgqw [Folbic] 1 each PO DAILY@1200 tab 12/31/16 [Rx] Hydrochlorothiazide [Hydrodiuril] 12.5 mg PO DAILY cap 12/31/16 [Rx] traMADol HCl [Ultram] 25 mg PO BID #60 tab 12/31/16 [Rx] Follow up Appointment(s)/Referral(s): Rashawn Lau MD [Primary Care Provider] - 1 Week (at [facility]) Isabella Morin MD [STAFF PHYSICIAN] - 2 Weeks Discharge Disposition: TRANSFER TO SNF/F
[2016-12-31] MEDS ORDERED: FAMOTIDINE 20 MG TAB PO SCH (21:00)
--- NOTE | 2017-01-11 09:35 | EEG ---
ELECTROENCEPHALOGRAM REPORT DATE OF SERVICE: 12/29/2016 REASON FOR TESTING: Transient ischemic attack. DESCRIPTION OF THE PROCEDURE: This EEG was performed using a 21 channel digital electroencephalograph, following international 10-20 system. DESCRIPTION OF THE RECORDING: From the beginning of the tracing, and with patient's eyes closed, the background rhythm was mostly consisting of 8 Hz alpha frequency in the posterior occipital leads. No obvious asymmetry is seen. Photic stimulation was performed with a minimal driving response seen. No pathological waves were elicited. Rare movement artifacts are seen. The patient remains awake throughout the tracing. No epileptiform discharges were seen. Hyperventilation was not performed. Her EKG lead showed an irregularly irregular rhythm. INTERPRETATION: This awake EEG can be considered within normal limits except her EKG lead showed an irregularly irregular rhythm with a normal rate. No epileptiform discharges were seen. The absence of epileptiform discharges does not rule out the diagnosis of epilepsy, therefore clinical correlation is recommended. MMTAWNYAL / IJN: [id number] /
== END 2016-12-31 13:10 | DRG 69 ==
LOC: EC 01:21 → SUPCPDRO 01:21 → 6SEL 03:01 → 4MS4W 12-28 13:59
PROVIDERS: ADMIT Family Medicine; ATTEND Family Medicine
DX: G45.9 Transient cerebral ischemic attack, unspecified (principal); G81.94 Hemiplegia, unspecified affecting left nondominant side; I11.9 Hypertensive heart disease without heart failure; N39.0 Urinary tract infection, site not specified; E03.9 Hypothyroidism, unspecified; K21.9 Gastro-esophageal reflux disease without esophagitis; M15.9 Polyosteoarthritis, unspecified; M89.9 Disorder of bone, unspecified; I08.1 Rheumatic disorders of both mitral and tricuspid valves; M48.00 Spinal stenosis, site unspecified; G40.909 Epilepsy, unspecified, not intractable, without status epilepticus; M06.9 Rheumatoid arthritis, unspecified; Z96.653 Presence of artificial knee joint, bilateral; E11.9 Type 2 diabetes mellitus without complications; R26.2 Difficulty in walking, not elsewhere classified; E78.5 Hyperlipidemia, unspecified; Z90.710 Acquired absence of both cervix and uterus; Z90.89 Acquired absence of other organs; Z90.49 Acquired absence of other specified parts of digestive tract; Z87.19 Personal history of other diseases of the digestive system; Z79.82 Long term (current) use of aspirin; Z87.891 Personal history of nicotine dependence; Z83.3 Family history of diabetes mellitus; Z88.6 Allergy status to analgesic agent; Z80.42 Family history of malignant neoplasm of prostate; Z79.899 Other long term (current) drug therapy; Z79.1 Long term (current) use of non-steroidal anti-inflammatories (NSAID)
CPT/HCPCS: 36415; 70450; 70496; 70498; 70553; 71010; 80048; 80053; 80061; 81001; 82550; 82553; 83036; 83090; 83735; 84443; 84484; 85025; 85610; 85730; 93005; 93306; 93880; 95819; 96361; 96374; 96375; 99285

== ENCOUNTER 2019-08-14 22:31 | Inpatient (IN) | payer MEDICARE ==
[2019-08-14] MEDS ORDERED: SODIUM CHLORIDE 0.9% 500 ML 500 ML IV STA (23:08)
--- NOTE | 2019-08-14 23:39 | CT ---
EXAMINATION TYPE: CT brain wo con DATE OF EXAM: 08/14/2019 COMPARISON: December 27, 2016 HISTORY: syncope CT DLP: 1098.4 mGycm Automated exposure control for dose reduction was used. Images obtained without contrast. There is diffuse cerebral cortical atrophy. There is patchy hypodensity in the periventricular white matter. There is no mass effect nor midline shift. There is no sign of intracranial hemorrhage. The c alvarium is intact. The skull base is intact. IMPRESSION: Cerebral atrophy and chronic small vessel ischemia. No acute intracranial abnormality. No change comp ared to old exam.
--- NOTE | 2019-08-14 23:41 | XR ---
EXAMINATION TYPE: XR chest 2V DATE OF EXAM: 08/14/2019 COMPARISON: December 27, 2016 HISTORY: Weakness TECHNIQUE: FINDINGS: There is no heart failure nor confluent pneumonic infiltrate. Costophrenic angles are clear . Thoracic aorta is atheromatous. Bony thorax is intact. There is significant arthritic disease in th e right shoulder joint. IMPRESSION: No active cardiopulmonary disease. Atheromatous aorta. Inspiration decreased slightly com pared to old exam.
[2019-08-15 00:09] LABS: Basophils % (A) 0 %; Eosinophils # (A) 0.1 k/uL (0-0.7); Eosinophils % (A) 0 %; HCT 42.7 % (34.0-46.0); HGB 13.9 gm/dL (11.4-16.0); Lymphocytes # (A) 0.8 k/uL (1.0-4.8); Lymphocytes % (A) 5 %; MCH 29.2 pg (25.0-35.0); MCHC 32.6 g/dL (31.0-37.0); MCV 89.7 fL (80.0-100.0); Mean Platelet Volume 7.4; Monocytes # (A) 1.1 k/uL (0-1.0); Monocytes % (A) 6 %; Neutrophils # (A) 15.9 k/uL (1.3-7.7); Neutrophils % (A) 88 %; Platelet Count 456 k/uL (150-450); RBC 4.77 m/uL (3.80-5.40); RDW 14.8 % (11.5-15.5); WBC 18.1 k/uL (3.8-10.6)
[2019-08-15 00:18] LABS: INR 1.1 (<1.2); Partial Thromboplastin Time 25.5 sec (22.0-30.0)
[2019-08-15 00:19] LABS: Calcium 10.7 mg/dL (8.4-10.2); Magnesium 1.7 mg/dL (1.6-2.3); Potassium 2.9 mmol/L (3.5-5.1); Total Bilirubin 0.9 mg/dL (0.2-1.3)
[2019-08-15 01:04] LABS: Amorphous Sediment,Urine Many /hpf; Appearance,Urine Cloudy (Clear); Bilirubin,Urine Negative (Negative); Blood,Urine Negative (Negative); Color,Urine Yellow; Glucose,Urine (UA) Negative (Negative); Ketones,Urine Trace (Negative); Leukocyte Esterase,Urine Moderate (Negative); Nitrite,Urine Negative (Negative); PH, Urine 5.5 (5.0-8.0); Protein,Urine Trace (Negative); RBC,Urine 1 /hpf (0-5); Specific Gravity,Urine 1.012 (1.001-1.035); Squamous Epithelial Cell,Urine 3 /hpf (0-4); WBC,Urine 10 /hpf (0-5)
[2019-08-15 01:16] LABS: T4, Free (Free Thyroxine) 1.75 ng/dL (0.78-2.19)
[2019-08-15] MEDS ORDERED: POTASSIUM CHLORIDE ER 20 MEQ TAB.ER PO STA (01:25)
[2019-08-15] MEDS ORDERED: Potassium Replacement Protocol 1 EACH MISC MISCELLANE PRN (01:25)
[2019-08-15] MEDS ORDERED: cefTRIAXone IN SWFI 1,000 MG/10 ML SYRINGE IVP STA (01:43)
--- NOTE | 2019-08-15 02:00 | ED ---
General Adult HPI - General Source: patient, EMS Mode of arrival: EMS <Denia Loaiza - Last Filed: 08/15/19 03:01> <Chandler Bustamante - Last Filed: 08/27/19 02:16> - General Chief complaint: Syncope Stated complaint: near syncope Time Seen by Provider: 08/14/19 22:46 - History of Present Illness Initial comments: 84-year-old female patient presents to the emergency department today for evaluation of generalized weakness, possible syncope. The patient has had 2 falls today, states that her knees gave out due to weakness. States with the last fall she was sitting on the toilet when she possibly passed out. Patient denies any current headache, blurred vision, double vision, or nausea. Denies any neck or back pain. Denies any known injuries from the falls. Patient reports decreased appetite. Son is concerned that she may be dehydrated. Patient denies any chest pain or shortness of breath. Denies any abdominal pain. Patient does take plavix. Denies any focal weakness or numbness. She has had TIA in the past x2. Patient denies any recent rash, cough, diarrhea, constipation, back pain, hematuria, dysuria, urinary urgency, urinary frequency, headache, visual changes, or any other complaints. (Denia Loaiza) - Related Data Home Medications Medication Instructions Recorded Confirmed Levothyroxine Sodium [Levoxyl] 112 mcg PO DAILY@0600 07/08/13 08/14/19 Cholecalciferol [Vitamin D3 (25 2,000 unit PO DAILY@0800 12/27/16 08/14/19 Mcg = 1000 Iu)] Acetaminophen [Tylenol Arthritis] 650 mg PO Q4H PRN 08/14/19 08/14/19 Atorvastatin [Lipitor] 20 mg PO HS@199908/14/19 08/14/19 Clopidogrel [Plavix] 75 mg PO DAILY@79908/14/19 08/14/19 Clotrimazole [Clotrimazole 1% Top 1 - 2 drops TOPICAL DAILY@199908/14/19 08/14/19 Soln] Furosemide [Lasix] 20 mg PO DAILY@79908/14/19 08/14/19 Abi-Lanta [id number]/5ml Susp 15 ml PO BID PRN 08/14/19 08/14/19 Hydrocortisone Oint 1 applic TOPICAL BID PRN 08/14/19 08/14/19 [Hydrocortisone 1% Oint] Kaolin/Pectin [Kaolin Pectin 30 ml PO DAILY PRN 08/14/19 08/14/19 Suspension] Ketoconazole 2% Shampoo [Nizoral] 1 applic TOPICAL DAILY PRN 08/14/19 08/14/19 Lansoprazole [Prevacid] 30 mg PO DAILY@79908/14/19 08/14/19 Loperamide [Imodium] 2 mg PO DAILY@79908/14/19 08/14/19 Losartan [Cozaar] 50 mg PO DAILY@79908/14/19 08/14/19 Magnesium Hydroxide [Milk of 2,400 mg PO HS PRN 08/14/19 08/14/19 Magnesia] Melatonin 10 mg PO HS@219908/14/19 08/14/19 Menthol [Biofreeze] 1 applic TOPICAL QID PRN 08/14/19 08/14/19 Multivitamins, Thera [Multivitamin 1 tab PO DAILY@199908/14/19 08/14/19 (formulary)] Silver Nitrate 0.5% Topical 1 applic TOPICAL DAILY 08/14/19 08/14/19 Solution Sucralfate [Carafate] 1 gm PO BID@0730,1630 08/14/19 08/14/19 Tolnaftate [Tinactin] 1 applic TOPICAL BID PRN 08/14/19 08/14/19 Ursodiol 300 mg PO BID@0800,199908/14/19 08/14/19 amLODIPine [Norvasc] 5 mg PO DAILY@79908/14/19 08/14/19 guaiFENesin SYRUP 100MG/5ML 200 mg PO Q6H PRN 08/14/19 08/14/19 [Robitussin] Previous Rx's Medication Instructions Recorded Buprenorphine [Butrans 10 MCG/HOUR] 1 patch TRANSDERM TU@0800 #1 patch 08/18/19 Cefuroxime [Ceftin] 250 mg PO BID 4 Days #8 tab 08/18/19 Allergies Allergy/AdvReac Type Severity Reaction Status Date / Time codeine AdvReac Nausea Verified 08/14/19 22:54 Review of Systems ROS Other: All systems not noted in ROS Statement are negative. <Denia Loaiza - Last Filed: 08/15/19 03:01> ROS Other: All systems not noted in ROS Statement are negative. <Chandler Bustamante - Last Filed: 08/27/19 02:16> ROS Statement: Those systems with pertinent positive or pertinent negative responses have been documented in the HPI. Past Medical History Past Medical History: GERD/Reflux, Hyperlipidemia, Hypertension, Musculoskeletal Disorder, Osteoarthritis (OA), Skin Disorder, Thyroid Disorder Additional Past Medical History / Comment(s): WOUND ON BUTTOCKS; PINCHED NERVE- AFFECTS LEGS, spinal stenosis History of Any Multi-Drug Resistant Organisms: None Reported Past Surgical History: Adenoidectomy, Appendectomy, Hernia Repair, Hysterectomy, Joint Replacement, Tonsillectomy Additional Past Surgical History / Comment(s): PRABHAKAR. KNEE REPLACEMENTS ,UMBILICAL HERNIA Past Anesthesia/Blood Transfusion Reactions: No Reported Reaction Past Psychological History: No Psychological Hx Reported Smoking Status: Former smoker Past Alcohol Use History: Occasional Past Drug Use History: None Reported - Past Family History Father Family Medical History: Cancer Additional Family Medical History / Comment(s): PROSTATE CA Brother(s) Family Medical History: Cancer, Diabetes Mellitus Additional Family Medical History / Comment(s): ONE BROTHER HAD PROSTATE CA & ANOTHER BROTHER HAS DIABETES <Denia Loaiza - Last Filed: 08/15/19 03:01> General Exam General appearance: alert, in no apparent distress, other (This is a well- developed, well-nourished elderly female patient in no acute distress. Vital signs upon presentation are temperature 99.1F, pulse 87, respirations 18, blood pressure 92/78, pulse ox 93% on room air.) Head exam: Present: atraumatic, normocephalic, normal inspection Eye exam: Present: normal appearance, PERRL, EOMI. Absent: scleral icterus, conjunctival injection, periorbital swelling ENT exam: Present: normal exam, normal oropharynx, mucous membranes moist Neck exam: Present: normal inspection, full ROM, other (Nontender, no step-off, no deformity to firm midline palpation of the posterior cervical spine. Full range of motion without pain or limitation.). Absent: tenderness, meningismus, lymphadenopathy Respiratory exam: Present: normal lung sounds bilaterally. Absent: respiratory distress, wheezes, rales, rhonchi, stridor Cardiovascular Exam: Present: regular rate, normal rhythm, normal heart sounds. Absent: systolic murmur, diastolic murmur, rubs, gallop, clicks GI/Abdominal exam: Present: soft, normal bowel sounds. Absent: distended, ten derness, guarding, rebound, rigid Extremities exam: Present: normal inspection, full ROM, normal capillary refill, other (No hip tenderness or instability of the pelvis was performed palpation bilaterally. Skin to the lower extremities is pink, warm, dry. Cap refills less than 3 seconds. Pedal pulses 2+ and equal bilaterally.). Absent: tenderness, pedal edema, joint swelling, calf tenderness Neurological exam: Present: alert, oriented X3, CN II-XII intact Psychiatric exam: Present: normal affect, normal mood Skin exam: Present: warm, dry, intact, normal color. Absent: rash <Denia Loaiza - Last Filed: 08/15/19 03:01> Course Vital Signs 08/14/19 08/15/19 08/15/19 22:38 01:30 03:43 Temperature 99.1 F 98.8 F Pulse Rate 87 81 70 Respiratory 18 16 16 Rate Blood Pressure 92/78 113/53 112/59 O2 Sat by Pulse 93 L 94 L 94 L Oximetry EKG Findings - EKG Comments: EKG Findings:: EKG obtained at 0006 shows normal sinus rhythm with a ventricular rate of 69, [place] interval 194, QRS duration 104, QTC 426, QTc 456. No evidence of ST elevation or depression. <Denia Loaiza - Last Filed: 08/15/19 03:01> Medical Decision Making - Lab Data Result diagrams: 08/14/19 23:50 08/14/19 23:50 - Radiology Data Radiology results: report reviewed, image reviewed <Denia Loaiza - Last Filed: 08/15/19 03:01> - Lab Data Result diagrams: 08/17/19 07:25 08/18/19 07:42 <Chandler Bustamnate - Last Filed: 08/27/19 02:16> - Medical Decision Making 84-year-old female patient presented to the emergency department today for evaluation of generalized weakness and frequent falls. Patient had 3 falls today with the last one possible being a syncopal episode while using the bathroom. Physical examination was relatively unremarkable. She is neurologically intact with no focal deficits. CT brain is negative. Chest x- ray shows no acute cardiopulmonary process. Labs reviewed and did reveal elevated white blood cell count at 18.1, neutrophils 15.9, sodium 127, potassium 2.9, BUN 23, creatinine 1.27. Plasma lactic acid was 2.3. Troponin 0.042, TSH was 6.890 with a normal free T4. Elevated trop is felt to be related to renal leak and since she is taking plavix we will hold heparin pending further trop results. Urinalysis showed moderate leukocyte esterase with 10 white blood cells, this will be sent for culture. We will replace potassium and sodium. Troponins will be repeated through the night. (Denia Loaiza) I saw this patient in conjunction with the physician assistant men's soccer coach. I performed independent history and physical exam. Agree with case management. (Chandler Bustamante) - Lab Data Lab Results 08/14/19 08/14/19 08/14/19 Range/Units 23:50 23:50 23:50 WBC 18.1 H (3.8-10.6) k/uL RBC 4.77 (3.80-5.40) m/uL Hgb 13.9 (11.4-16.0) gm/dL Hct 42.7 (34.0-46.0) % MCV 89.7 (80.0-100.0) fL MCH 29.2 (25.0-35.0) pg MCHC 32.6 (31.0-37.0) g/dL RDW 14.8 (11.5-15.5) % Plt Count 456 H (150-450) k/uL Neutrophils % 88 % Lymphocytes % 5 % Monocytes % 6 % Eosinophils % 0 % Basophils % 0 % Neutrophils # 15.9 H (1.3-7.7) k/uL Lymphocytes # 0.8 L (1.0-4.8) k/uL Monocytes # 1.1 H (0-1.0) k/uL Eosinophils # 0.1 (0-0.7) k/uL Basophils # 0.0 (0-0.2) k/uL PT 11.0 (9.0-12.0) sec INR 1.1 (<1.2) APTT 25.5 (22.0-30.0) sec Sodium 127 L (137-145) mmol/L Potassium 2.9 L (3.5-5.1) mmol/L Chloride 85 L (98-107) mmol/L Carbon Dioxide 27 (22-30) mmol/L Anion Gap 15 mmol/L BUN 23 H (7-17) mg/dL Creatinine 1.27 H (0.52-1.04) mg/dL Est GFR (CKD-EPI)AfAm 45 (>60 ml/min/1.73 sqM) Est GFR (CKD-EPI)NonAf 39 (>60 ml/min/1.73 sqM) Glucose 119 H (74-99) mg/dL Lactic Ac Sepsis Rflx Plasma Lactic Acid Juan A (0.7-2.0) mmol/L Calcium 10.7 H (8.4-10.2) mg/dL Magnesium 1.7 (1.6-2.3) mg/dL Total Bilirubin 0.9 (0.2-1.3) mg/dL AST 34 (14-36) U/L ALT 15 (4-34) U/L Alkaline Phosphatase 116 (38-126) U/L Troponin I (0.000-0.034) ng/mL Total Protein 7.0 (6.3-8.2) g/dL Albumin 4.0 (3.5-5.0) g/dL TSH 6.890 H (0.465-4.680) mIU/L Free T4 1.75 (0.78-2.19) ng/dL Urine Color Urine Appearance (Clear) Urine pH (5.0-8.0) Ur Specific [place] (1.001-1.035) Urine Protein (Negative) Urine Glucose (UA) (Negative) Urine Ketones (Negative) Urine Blood (Negative) Urine Nitrite (Negative) Urine Bilirubin (Negative) Urine Urobilinogen (<2.0) mg/dL Ur Leukocyte Esterase (Negative) Urine RBC (0-5) /hpf Urine WBC (0-5) /hpf Ur Squamous Epith Cells (0-4) /hpf Amorphous Sediment (None) /hpf Coronavirus (PCR) (Not Detected) 08/14/19 08/14/19 08/15/19 Range/Units 23:50 23:50 00:49 WBC (3.8-10.6) k/uL RBC (3.80-5.40) m/uL Hgb (11.4-16.0) gm/dL Hct (34.0-46.0) % MCV (80.0-100.0) fL MCH (25.0-35.0) pg MCHC (31.0-37.0) g/dL RDW (11.5-15.5) % Plt Count (150-450) k/uL Neutrophils % % Lymphocytes % % Monocytes % % Eosinophils % % Basophils % % Neutrophils # (1.3-7.7) k/uL Lymphocytes # (1.0-4.8) k/uL Monocytes # (0-1.0) k/uL Eosinophils # (0-0.7) k/uL Basophils # (0-0.2) k/uL PT (9.0-12.0) sec INR (<1.2) APTT (22.0-30.0) sec Sodium (137-145) mmol/L Potassium (3.5-5.1) mmol/L Chloride (98-107) mmol/L Carbon Dioxide (22-30) mmol/L Anion Gap mmol/L BUN (7-17) mg/dL Creatinine (0.52-1.04) mg/dL Est GFR (CKD-EPI)AfAm (>60 ml/min/1.73 sqM) Est GFR (CKD-EPI)NonAf (>60 ml/min/1.73 sqM) Glucose (74-99) mg/dL Lactic Ac Sepsis Rflx Y Plasma Lactic Acid Juan A 2.3 H* (0.7-2.0) mmol/L Calcium (8.4-10.2) mg/dL Magnesium (1.6-2.3) mg/dL Total Bilirubin (0.2-1.3) mg/dL AST (14-36) U/L ALT (4-34) U/L Alkaline Phosphatase (38-126) U/L Troponin I 0.042 H* (0.000-0.034) ng/mL Total Protein (6.3-8.2) g/dL Albumin (3.5-5.0) g/dL TSH (0.465-4.680) mIU/L Free T4 (0.78-2.19) ng/dL Urine Color Urine Appearance (Clear) Urine pH (5.0-8.0) Ur Specific [place] (1.001-1.035) Urine Protein (Negative) Urine Glucose (UA) (Negative) Urine Ketones (Negative) Urine Blood (Negative) Urine Nitrite (Negative) Urine Bilirubin (Negative) Urine Urobilinogen (<2.0) mg/dL Ur Leukocyte Esterase (Negative) Urine RBC (0-5) /hpf Urine WBC (0-5) /hpf Ur Squamous Epith Cells (0-4) /hpf Amorphous Sediment (None) /hpf Coronavirus (PCR) (Not Detected) 08/15/19 08/15/19 Range/Units 00:51 01:53 WBC (3.8-10.6) k/uL RBC (3.80-5.40) m/uL Hgb (11.4-16.0) gm/dL Hct (34.0-46.0) % MCV (80.0-100.0) fL MCH (25.0-35.0) pg MCHC (31.0-37.0) g/dL RDW (11.5-15.5) % Plt Count (150-450) k/uL Neutrophils % % Lymphocytes % % Monocytes % % Eosinophils % % Basophils % % Neutrophils # (1.3-7.7) k/uL Lymphocytes # (1.0-4.8) k/uL Monocytes # (0-1.0) k/uL Eosinophils # (0-0.7) k/uL Basophils # (0-0.2) k/uL PT (9.0-12.0) sec INR (<1.2) APTT (22.0-30.0) sec Sodium (137-145) mmol/L Potassium (3.5-5.1) mmol/L Chloride (98-107) mmol/L Carbon Dioxide (22-30) mmol/L Anion Gap mmol/L BUN (7-17) mg/dL Creatinine (0.52-1.04) mg/dL Est GFR (CKD-EPI)AfAm (>60 ml/min/1.73 sqM) Est GFR (CKD-EPI)NonAf (>60 ml/min/1.73 sqM) Glucose (74-99) mg/dL Lactic Ac Sepsis Rflx Plasma Lactic Acid Juan A (0.7-2.0) mmol/L Calcium (8.4-10.2) mg/dL Magnesium (1.6-2.3) mg/dL Total Bilirubin (0.2-1.3) mg/dL AST (14-36) U/L ALT (4-34) U/L Alkaline Phosphatase (38-126) U/L Troponin I (0.000-0.034) ng/mL Total Protein (6.3-8.2) g/dL Albumin (3.5-5.0) g/dL TSH (0.465-4.680) mIU/L Free T4 (0.78-2.19) ng/dL Urine Color Yellow Urine Appearance Cloudy H (Clear) Urine pH 5.5 (5.0-8.0) Ur Specific [place] 1.012 (1.001-1.035) Urine Protein Trace H (Negative) Urine Glucose (UA) Negative (Negative) Urine Ketones Trace H (Negative) Urine Blood Negative (Negative) Urine Nitrite Negative (Negative) Urine Bilirubin Negative (Negative) Urine Urobilinogen 12.0 (<2.0) mg/dL Ur Leukocyte Esterase Moderate H (Negative) Urine RBC 1 (0-5) /hpf Urine WBC 10 H (0-5) /hpf Ur Squamous Epith Cells 3 (0-4) /hpf Amorphous Sediment Many H (None) /hpf Coronavirus (PCR) Not Detected (Not Detected) - Radiology Data Two-view x-ray of the chest is obtained. Report is reviewed in its entirety. Impression by Dr. Cherry shows no active cardiopulmonary disease. Atheromatous aorta. Inspiration decreased slightly compared to old exam per CT brain without contrast was obtained. Report was reviewed in its entirety. Impression by Dr. Cherry shows cerebral atrophy and chronic small vessel ischemia. No acute intracranial abnormality. No change compared to old exam. (Denia Loaiza) Disposition Decision to Admit Reason: Admit from EC Decision Date: 08/15/19 Decision Time: 02:00 <Denia Loaiza - Last Filed: 08/15/19 03:01> <Chandler Bustamante - Last Filed: 08/27/19 02:16> Clinical Impression: Weakness, Hyponatremia, Hypokalemia, Elevated troponin, Dehydration, Acute kidney injury Disposition: ADMITTED IP TO THIS [facility] Condition: Good
[2019-08-15] MEDS ORDERED: NALOXONE 0.4 MG/ML 1 ML VIAL IV PRN (02:57)
[2019-08-15] MEDS: SODIUM CHLORIDE 0.9% 1,000 ML IV SCH ×3 (03:32→17:52)
[2019-08-15] MEDS ORDERED: ACETAMINOPHEN TAB 325 MG TAB PO PRN (09:32)
--- NOTE | 2019-08-15 10:16 | US ---
EXAMINATION TYPE: US carotid duplex BILAT DATE OF EXAM: 08/15/2019 COMPARISON: Previous study dated 12/27/2016. CLINICAL HISTORY: syncope. EXAM MEASUREMENTS: RIGHT: Peak Systolic Velocity (PSV) cm/sec ----- Right CCA: 76.8 ----- Right ICA: 86.6 ----- Right ECA: 87.9 ICA/CCA ratio: 1.1 RIGHT: End Diastole cm/sec ----- Right CCA: 7.6 ----- Right ICA: 7.6 ----- Right ECA: 0.0 LEFT: Peak Systolic Velocity (PSV) cm/sec ----- Left CCA: 85.6 ----- Left ICA: 73.5 ----- Left ECA: 68.0 ICA/CCA ratio: 0.9 LEFT: End Diastole cm/sec ----- Left CCA: 6.5 ----- Left ICA: 10.9 ----- Left ECA: 0.0 VERTEBRALS (direction of flow): Right Vertebral: Antegrade Left Vertebral: Antegrade Rhythm: Normal No significant stenosis seen. No elevated velocities. Bilateral shadowing plaque, left greater than r ight. IMPRESSION: I DO NOT SEE A HEMODYNAMICALLY SIGNIFICANT STENOSIS IN EITHER CAROTID SYSTEM. Criteria for Assigning % of Stenosis / Diameter reduction (Estimation based on the indirect measurements of the internal carotid artery velocities (ICA PSV). 1. Normal (no stenosis)=ICA PSV < 125 cm/s: ratio < 2.0: ICA EDV<40 cm/s. 2. Less than 50% stenosis=ICA PSV < 125 cm/s: ratio < 2.0: ICA EDV<40 cm/s. 3. 50 to 69% stenosis=ICA PSV of 125 to 230 cm/s: ration 2.0 ? 4.0: ICA EDV 40-100 cm/s. 4. Greater than 70% stenosis to near occlusion= ICA PSV > 230 cm/s: ratio > 4.0: ICA EDV > 100 cm/s. 5. Near occlusion= ICA PSV velocities may be low or undetectable: variable ratio and ICA EDV. 6. Total occlusion=unable to detect flow.
--- NOTE | 2019-08-15 11:30 | P.HPIM ---
History of Present Illness H&P Date: 08/15/19 Chief Complaint: Fall, syncope This is an 85-year-old pleasant female who is a patient of visiting physician who lives at a care home facility. Patient's past medical history significant for hypertension, hyperlipidemia, osteoporosis arthritis, hypothyroidism, acid reflux, and spinal stenosis. Patient is a former smoker. Patient presented to the emergency department yesterday for generalized weakness and possible syncope. Patient states that she had 3 falls yesterday stating that her knees gave out due to weakness. She states the last time that she fell she was sitting on the toilet when she passed with past out. Patient denies any current headaches blurred vision double vision or nausea at that time. Denied any neck or back pain. Patient did not suffer any injuries with the falls. She does report a decreased appetite. Patient has had a TIA in the past 2. Currently taking Plavix. Patient denies any recent rashes, cough diarrhea constipation back pain hematuria dysuria urine frequency visual changes. At this time patient is sitting up in bed resting comfortably in no acute distress. Continues to deny any syncope dizziness or blurred vision. Patient does not have any urinary complaints such as dysuria, frequency or urgency. Felipe georgesyulia states that she was unaware if she passed out or not. The health aide stated that she was out for about a second or 2 before she responded again. Blood pressure 131/80, pulse rate 65, respirations 18, temperature 98.7 pulse ox a 94% on room air. DVT 18.1, sodium 127, potassium 2.9, BUN 23, creatinine 1.27, troponin slightly elevated, initial lactic acid 2.3, 0.9 at this time. TSH 6.89, free T4 1.075, Review of Systems Review Of Systems: Constitutional: No fever, no chills, no night sweats. No weight change. Report weakness, no fatigue or lethargy. No daytime sleepiness. EENT: No headache. No blurred vision or double vision, no loss of vision. No loss of Hearing, no ringing in the ears, no dizziness. No nasal drainage or congestion. No epistaxis. No sore throat. Lungs: No shortness of breath, cough, no sputum production. No wheezing. Cardiovascular: No chest pain, no lower extremity edema. No palpitations. No paroxysmal nocturnal dyspnea. No orthopnea. No lightheadedness or dizziness. No syncopal episodes. Abdominal: no abdominal discomfort. No nausea, vomiting. no diarrhea. No constipation. No bloody or tarry stools. no loss of appetite. Genitourinary: No dysuria, no increased frequency, urgency. No urinary retention. Musculoskeletal: No myalgias. Reports muscle weakness bilateral lower extremities, no gait dysfunction, no frequent falls. No back pain. No neck pain. Integumentary: No wounds, no lesions. No rash or pruritus. No unusual bruising. No change in hair or nails. Neurologic: No aphasia. No facial droop. No change in mentation. No head injury. No headache. No paralysis. No paresthesia. Psychiatric: No depression. No anxiety. No mood swings. Endocrine: No abnormal blood sugars. No weight change. No excessive sweating or thirst. Past Medical History Past Medical History: GERD/Reflux, Hyperlipidemia, Hypertension, Musculoskeletal Disorder, Osteoarthritis (OA), Skin Disorder, Thyroid Disorder Additional Past Medical History / Comment(s): WOUND ON BUTTOCKS; PINCHED NERVE- AFFECTS LEGS, spinal stenosis History of Any Multi-Drug Resistant Organisms: None Reported Past Surgical History: Adenoidectomy, Appendectomy, Hernia Repair, Hysterectomy, Joint Replacement, Tonsillectomy Additional Past Surgical History / Comment(s): PRABHAKAR. KNEE REPLACEMENTS ,UMBILICAL HERNIA Past Anesthesia/Blood Transfusion Reactions: No Reported Reaction Past Psychological History: No Psychological Hx Reported Smoking Status: Former smoker Past Alcohol Use History: Occasional Past Drug Use History: None Reported - Past Family History Father Family Medical History: Cancer Additional Family Medical History / Comment(s): PROSTATE CA Brother(s) Family Medical History: Cancer, Diabetes Mellitus Additional Family Medical History / Comment(s): ONE BROTHER HAD PROSTATE CA & ANOTHER BROTHER HAS DIABETES Medications and Allergies Home Medications Medication Instructions Recorded Confirmed Type Levothyroxine Sodium [Levoxyl] 112 mcg PO DAILY@0600 07/08/13 08/14/19 History Cholecalciferol [Vitamin D3 (25 2,000 unit PO DAILY@0800 12/27/16 08/14/19 History Mcg = 1000 Iu)] Acetaminophen Tab [Tylenol] 650 mg PO Q4H PRN 08/14/19 08/14/19 History Acetaminophen [Tylenol Arthritis] 650 mg PO Q4H PRN 08/14/19 08/14/19 History Atorvastatin [Lipitor] 20 mg PO HS@199908/14/19 08/14/19 History Buprenorphine [Butrans 10 MCG/HOUR] 1 patch TRANSDERM TU@79908/14/19 08/14/19 History Clopidogrel [Plavix] 75 mg PO DAILY@79908/14/19 08/14/19 History Clotrimazole [Clotrimazole 1% Top 1 - 2 drops TOPICAL DAILY@199908/14/19 08/14/19 History Soln] Furosemide [Lasix] 20 mg PO DAILY@79908/14/19 08/14/19 History Abi-Lanta 843-650-40wn/5ml Susp 15 ml PO BID PRN 08/14/19 08/14/19 History Hydrochlorothiazide 50 mg PO DAILY@79908/14/19 08/14/19 History Hydrocortisone Oint 1 applic TOPICAL BID PRN 08/14/19 08/14/19 History [Hydrocortisone 1% Oint] Kaolin/Pectin [Kaolin Pectin 30 ml PO DAILY PRN 08/14/19 08/14/19 History Suspension] Ketoconazole 2% Shampoo [Nizoral] 1 applic TOPICAL DAILY PRN 08/14/19 08/14/19 History Lansoprazole [Prevacid] 30 mg PO DAILY@79908/14/19 08/14/19 History Loperamide [Imodium] 2 mg PO DAILY@79908/14/19 08/14/19 History Losartan [Cozaar] 50 mg PO DAILY@79908/14/19 08/14/19 History Magnesium Hydroxide [Milk of 2,400 mg PO HS PRN 08/14/19 08/14/19 History Magnesia] Melatonin 10 mg PO HS@219908/14/19 08/14/19 History Menthol [Biofreeze] 1 applic TOPICAL QID PRN 08/14/19 08/14/19 History Multivitamins, Thera [Multivitamin 1 tab PO DAILY@199908/14/19 08/14/19 History (formulary)] Naproxen 500 mg PO BID@0800,199908/14/19 08/14/19 History Silver Nitrate 0.5% Topical 1 applic TOPICAL DAILY 08/14/19 08/14/19 History Solution Sucralfate [Carafate] 1 gm PO BID@0730,1630 08/14/19 08/14/19 History Tolnaftate [Tinactin] 1 applic TOPICAL BID PRN 08/14/19 08/14/19 History Ursodiol 300 mg PO BID@0800,2000 08/14/19 08/14/19 History amLODIPine [Norvasc] 5 mg PO DAILY@0800 08/14/19 08/14/19 History guaiFENesin SYRUP 100MG/5ML 200 mg PO Q6H PRN 08/14/19 08/14/19 History [Robitussin] traMADol HCl [Ultram] 50 mg PO Q8HR PRN 08/14/19 08/14/19 History Allergies Allergy/AdvReac Type Severity Reaction Status Date / Time codeine AdvReac Nausea Verified 08/14/19 22:54 Physical Exam Vitals: Vital Signs Temp Pulse Pulse Resp BP BP Pulse Ox 08/15/19 08:16 96 08/15/19 08:00 98.7 F 65 18 131/80 94 L 08/15/19 04:00 68 18 08/15/19 03:55 98.4 F 76 18 133/67 96 08/15/19 03:43 98.8 F 70 16 112/59 94 L 08/15/19 01:30 81 16 113/53 94 L 08/14/19 22:38 99.1 F 87 18 92/78 93 L Intake and Output 08/14/19 08/15/19 08/15/19 22:59 06:59 14:59 Intake Total 240 Balance 240 Intake: Oral 240 Other: Voiding Method Bedpan Weight 103.873 kg 87 kg GenerPositiveal Appearance: Alert, cooperative, no distress, appears stated age. Neck HEENT: Supple, no lymphadenopathy, no thyroid enlargement, no carotid bruits. Lungs: Clear to auscultation without crackles or wheezes no rhonchi, no deformity. Chest Wall: Chest wall normal expansion with deep inspiration no tenderness and no deformity was found on exam, no costochondral pain or discomfort. Heart: Regular rate and rhythm, S1, S2 normal, no murmur, rub or gallop. Back: Symmetric, no curvature, ROM normal, no CVA tenderness. Abdomen: Soft, non-tender, no rebound or rigidity, no hepatosplenomegaly. Extremities: Extremities normal, atraumatic, no cyanosis or edema. Pulses: 2+ and symmetric. Skin: Skin color, texture, tugor normal, no rashes or lesions. Neurologic: Alert oriented x3 cranial nerves II through XII intact, no motor deficit, + abnormal balance or gait Results CBC & Chem 7: 08/14/19 23:50 08/14/19 23:50 Labs: Abnormal Lab Results - Last 24 Hours (Table) 08/14/19 08/14/19 08/14/19 Range/Units 23:50 23:50 23:50 WBC 18.1 H (3.8-10.6) k/uL Plt Count 456 H (150-450) k/uL Neutrophils # 15.9 H (1.3-7.7) k/uL Lymphocytes # 0.8 L (1.0-4.8) k/uL Monocytes # 1.1 H (0-1.0) k/uL Sodium 127 L (137-145) mmol/L Potassium 2.9 L (3.5-5.1) mmol/L Chloride 85 L (98-107) mmol/L BUN 23 H (7-17) mg/dL Creatinine 1.27 H (0.52-1.04) mg/dL Glucose 119 H (74-99) mg/dL Plasma Lactic Acid Juan A 2.3 H* (0.7-2.0) mmol/L Calcium 10.7 H (8.4-10.2) mg/dL Troponin I (0.000-0.034) ng/mL TSH 6.890 H (0.465-4.680) mIU/L Urine Appearance (Clear) Urine Protein (Negative) Urine Ketones (Negative) Ur Leukocyte Esterase (Negative) Urine WBC (0-5) /hpf Amorphous Sediment (None) /hpf 08/14/19 08/15/19 08/15/19 Range/Units 23:50 00:51 05:35 WBC (3.8-10.6) k/uL Plt Count (150-450) k/uL Neutrophils # (1.3-7.7) k/uL Lymphocytes # (1.0-4.8) k/uL Monocytes # (0-1.0) k/uL Sodium (137-145) mmol/L Potassium (3.5-5.1) mmol/L Chloride (98-107) mmol/L BUN (7-17) mg/dL Creatinine (0.52-1.04) mg/dL Glucose (74-99) mg/dL Plasma Lactic Acid Juan A (0.7-2.0) mmol/L Calcium (8.4-10.2) mg/dL Troponin I 0.042 H* 0.049 H* (0.000-0.034) ng/mL TSH (0.465-4.680) mIU/L Urine Appearance Cloudy H (Clear) Urine Protein Trace H (Negative) Urine Ketones Trace H (Negative) Ur Leukocyte Esterase Moderate H (Negative) Urine WBC 10 H (0-5) /hpf Amorphous Sediment Many H (None) /hpf Assessment and Plan Plan: 1. Syncope with unclear etiology possible vasovagal versus CT versus arrhythmia. Continue cardiac monitoring, consult cardiology, echocardiogram ordered 2. Elevated troponin possible STEMI, consult cardiology, echocardiogram ordered 3. UTI continue with Rocephin 1 g daily 4. Hyponatremia continue with hydration 5. Hypokalemia continue with the potassium protocol 6. Stage III chronic kidney disease 7. Hypertension continue amlodipine 5 mg daily, losartan 50 mg by mouth daily 8. Hyperlipidemia atorvastatin 20 mg by mouth at bedtime 9. Hypothyroidism. Continue Synthroid 112 mcg daily 10. Acid reflux: Carafate 1 g by mouth twice a day 11. Osteoarthritis. Continue acetaminophen 12. DVT prophylaxis: Pneumatic compression sleeves 13. GI prophylaxis: Carafate 1 g by mouth twice a day 14. Covid 19 pending Admit for minimum of 2 nights day Discharge plan: Home Impression and plan of care have been directed as dictated by the signing physician. Caroline Vásquez nurse practitioner acting as scribe for signing elaine verdin
--- NOTE | 2019-08-15 15:00 | ECHOF ---
Referral Reason:syncope MEASUREMENTS -------- HEIGHT: 162.6 cm WEIGHT: 86.6 kg BP: IVSd: 1.5 cm (0.6 - 1.1) LVIDd: 2.4 cm (3.9 - 5.3) LVPWd: 1.5 cm (0.6 - 1.1) IVSs: 1.9 cm LVIDs: 1.3 cm LVPWs: 1.2 cm Ao Diam: 3.0 cm (2.0 - 3.7) AV Cusp: 1.8 cm (1.5 - 2.6) LA Diam: 3.0 cm (2.7 - 3.8) MV EXCURSION: 12.842 mm (> 18.000) MV EF SLOPE: 55 mm/s (70 - 150) EPSS: 2.0 cm MV E Cruz: 0.59 m/s MV DecT: 256 ms MV A Cruz: 1.13 m/s MV E/A Ratio: 0.52 RAP: 5.00 mmHg RVSP: 11.95 mmHg FINDINGS -------- Sinus rhythm. This was a technically adequate study. The left ventricular size is normal. There is moderate concentric left ventricular hypertrophy. O verall left ventricular systolic function is normal with, an EF between 55 - 60 %. The right ventricle is normal in size. The left atrial size is normal. The right atrial size is normal. The aortic valve is trileaflet and appears structurally normal. The mitral valve is normal. Mild mitral regurgitation is present. The tricuspid valve appears structurally normal. Mild tricuspid regurgitation present. Right vent ricular systolic pressure is normal at < 35 mmHg. There is no pulmonic regurgitation present. The aortic root size is normal. IVC Not well visulized. CONCLUSIONS -------- 1. Sinus rhythm. 2. This was a technically adequate study. 3. The left ventricular size is normal. 4. There is moderate concentric left ventricular hypertrophy. 5. Overall left ventricular systolic function is normal with, an EF between 55 - 60 %. 6. The right ventricle is normal in size. 7. The left atrial size is normal. 8. The right atrial size is normal. 9. The aortic valve is trileaflet and appears structurally normal. 10. The mitral valve is normal. 11. Mild mitral regurgitation is present. 12. The tricuspid valve appears structurally normal. 13. Mild tricuspid regurgitation present. 14. Right ventricular systolic pressure is normal at < 35 mmHg. 15. There is no pulmonic regurgitation present. 16. The aortic root size is normal. 17. IVC Not well visulized. [employer] DEVELOPER: Josefa Knox RDCS
--- NOTE | 2019-08-15 15:21 | P.CRDCN ---
History of Present Illness Consult date: 08/15/19 History of present illness: This is a 84-year-old female with history of hypertension, hyperlipidemia, hypothyroidism, spinal stenosis and previous possible TIAs. Patient complains of generalized weakness and falls. She thinks during one of these falling episodes, she might have lost consciousness for a few seconds. Apparently she was sitting on the toilet when this happened. Patient denies any chest pain, palpitations or dizziness. Since admission. No arrhythmias are documented. The episode could be vasovagal the cardiac arrhythmias cannot be excluded. We' ll also check her for any postural hypotension. No history of any previous myocardial infarction. No change in the visual acuity or speech. She seemed to be completely disoriented at this time. We'll continue to monitor for any Cardec arrhythmias. Further recommended lipid upon clinical course Review of Systems As per the chart Past Medical History Past Medical History: GERD/Reflux, Hyperlipidemia, Hypertension, Musculoskeletal Disorder, Osteoarthritis (OA), Skin Disorder, Thyroid Disorder Additional Past Medical History / Comment(s): WOUND ON BUTTOCKS; PINCHED NERVE- AFFECTS LEGS, spinal stenosis History of Any Multi-Drug Resistant Organisms: None Reported Past Surgical History: Adenoidectomy, Appendectomy, Hernia Repair, Hysterectomy, Joint Replacement, Tonsillectomy Additional Past Surgical History / Comment(s): PRABHAKAR. KNEE REPLACEMENTS ,UMBILICAL HERNIA Past Anesthesia/Blood Transfusion Reactions: No Reported Reaction Past Psychological History: No Psychological Hx Reported Smoking Status: Former smoker Past Alcohol Use History: Occasional Past Drug Use History: None Reported - Past Family History Father Family Medical History: Cancer Additional Family Medical History / Comment(s): PROSTATE CA Brother(s) Family Medical History: Cancer, Diabetes Mellitus Additional Family Medical History / Comment(s): ONE BROTHER HAD PROSTATE CA & ANOTHER BROTHER HAS DIABETES Medications and Allergies Home Medications Medication Instructions Recorded Confirmed Type Levothyroxine Sodium [Levoxyl] 112 mcg PO DAILY@0600 07/08/08/14/19 History Cholecalciferol [Vitamin D3 (25 2,000 unit PO DAILY@0800 12/27/16 08/14/19 History Mcg = 1000 Iu)] Acetaminophen Tab [Tylenol] 650 mg PO Q4H PRN 08/14/19 08/14/19 History Acetaminophen [Tylenol Arthritis] 650 mg PO Q4H PRN 08/14/19 08/14/19 History Atorvastatin [Lipitor] 20 mg PO HS@199908/14/19 08/14/19 History Buprenorphine [Butrans 10 MCG/HOUR] 1 patch TRANSDERM TU@79908/14/19 08/14/19 History Clopidogrel [Plavix] 75 mg PO DAILY@79908/14/19 08/14/19 History Clotrimazole [Clotrimazole 1% Top 1 - 2 drops TOPICAL DAILY@199908/14/19 08/14/19 History Soln] Furosemide [Lasix] 20 mg PO DAILY@79908/14/19 08/14/19 History Abi-Lanta [id number]/5ml Susp 15 ml PO BID PRN 08/14/19 08/14/19 History Hydrochlorothiazide 50 mg PO DAILY@79908/14/19 08/14/19 History Hydrocortisone Oint 1 applic TOPICAL BID PRN 08/14/19 08/14/19 History [Hydrocortisone 1% Oint] Kaolin/Pectin [Kaolin Pectin 30 ml PO DAILY PRN 08/14/19 08/14/19 History Suspension] Ketoconazole 2% Shampoo [Nizoral] 1 applic TOPICAL DAILY PRN 08/14/19 08/14/19 History Lansoprazole [Prevacid] 30 mg PO DAILY@79908/14/19 08/14/19 History Loperamide [Imodium] 2 mg PO DAILY@79908/14/19 08/14/19 History Losartan [Cozaar] 50 mg PO DAILY@79908/14/19 08/14/19 History Magnesium Hydroxide [Milk of 2,400 mg PO HS PRN 08/14/19 08/14/19 History Magnesia] Melatonin 10 mg PO HS@219908/14/19 08/14/19 History Menthol [Biofreeze] 1 applic TOPICAL QID PRN 08/14/19 08/14/19 History Multivitamins, Thera [Multivitamin 1 tab PO DAILY@199908/14/19 08/14/19 History (formulary)] Naproxen 500 mg PO BID@0800,199908/14/19 08/14/19 History Silver Nitrate 0.5% Topical 1 applic TOPICAL DAILY 08/14/19 08/14/19 History Solution Sucralfate [Carafate] 1 gm PO BID@0730,1630 08/14/19 08/14/19 History Tolnaftate [Tinactin] 1 applic TOPICAL BID PRN 08/14/19 08/14/19 History Ursodiol 300 mg PO BID@0800,2000 08/14/19 08/14/19 History amLODIPine [Norvasc] 5 mg PO DAILY@0800 08/14/19 08/14/19 History guaiFENesin SYRUP 100MG/5ML 200 mg PO Q6H PRN 08/14/19 08/14/19 History [Robitussin] traMADol HCl [Ultram] 50 mg PO Q8HR PRN 08/14/19 08/14/19 History Allergies Allergy/AdvReac Type Severity Reaction Status Date / Time codeine AdvReac Nausea Verified 08/14/19 22:54 Physical Exam Vitals: Vital Signs Temp Pulse Pulse Resp BP BP Pulse Ox 08/15/19 12:00 69 22 129/59 93 L 08/15/19 08:16 96 08/15/19 08:00 98.7 F 65 18 131/80 94 L 08/15/19 04:00 68 18 08/15/19 03:55 98.4 F 76 18 133/67 96 08/15/19 03:43 98.8 F 70 16 112/59 94 L 08/15/19 01:30 81 16 113/53 94 L 08/14/19 22:38 99.1 F 87 18 92/78 93 L Intake and Output 08/15/19 08/15/19 08/15/19 06:59 14:59 22:59 Intake Total 480 Balance 480 Intake: Oral 480 Other: Voiding Method Bedpan Weight 87 kg GENERAL EXAM: Patient is alert and oriented and doesn't appear to be in any acute distress HEENT: Normocephalic. Normal reaction of pupils, equal size, normal range of extraocular motion. No erythema or exudates in the throat. NECK: No masses, no nuchal rigidity. CHEST: No chest wall deformity. LUNGS: Equal air entry with no crackles or wheeze. HEART: S1 and S2 normal with no audible mumurs or gallops. Regular rhythm, femorals equal on both sides.. ABDOMEN: No hepatosplenomegaly, normal bowel sounds, no guarding or rigidity. SKIN: No rashes CENTRAL NERVOUS SYSTEM: No focal deficits. EXTREMITIES: No cyanosis, clubbing or edema. Results 08/14/19 23:50 08/14/19 23:50 Cardiac Enzymes 08/14/19 08/14/19 08/15/19 Range/Units 23:50 23:50 05:35 AST 34 (14-36) U/L Troponin I 0.042 H* 0.049 H* (0.000-0.034) ng/mL 08/15/19 Range/Units 11:21 AST (14-36) U/L Troponin I 0.035 H* (0.000-0.034) ng/mL Coagulation 08/14/19 Range/Units 23:50 PT 11.0 (9.0-12.0) sec APTT 25.5 (22.0-30.0) sec CBC 08/14/19 Range/Units 23:50 WBC 18.1 H (3.8-10.6) k/uL RBC 4.77 (3.80-5.40) m/uL Hgb 13.9 (11.4-16.0) gm/dL Hct 42.7 (34.0-46.0) % Plt Count 456 H (150-450) k/uL Comprehensive Metabolic Panel 08/14/19 Range/Units 23:50 Sodium 127 L (137-145) mmol/L Potassium 2.9 L (3.5-5.1) mmol/L Chloride 85 L (98-107) mmol/L Carbon Dioxide 27 (22-30) mmol/L BUN 23 H (7-17) mg/dL Creatinine 1.27 H (0.52-1.04) mg/dL Glucose 119 H (74-99) mg/dL Calcium 10.7 H (8.4-10.2) mg/dL AST 34 (14-36) U/L ALT 15 (4-34) U/L Alkaline Phosphatase 116 (38-126) U/L Total Protein 7.0 (6.3-8.2) g/dL Albumin 4.0 (3.5-5.0) g/dL Current Medications Generic Name Dose Route Start Last Admin Trade Name Freq PRN Reason Stop Dose Admin Acetaminophen 650 mg 08/15/19 09:32 Tylenol Tab PO Q4H PRN Pain Amlodipine Besylate 5 mg 08/16/19 08:00 Norvasc PO DAILY@0800 COUNT INCLUDES THE [facility] Atorvastatin Calcium 20 mg 08/15/19 20:00 Lipitor PO HS@2000 COUNT INCLUDES THE [facility] Cholecalciferol 2,000 unit 08/16/19 08:00 Vitamin D3 (25 Mcg = 1000 Iu) PO DAILY@0800 COUNT INCLUDES THE [facility] Clopidogrel Bisulfate 75 mg 08/16/19 08:00 Plavix PO DAILY@0800 COUNT INCLUDES THE [facility] Furosemide 20 mg 08/16/19 08:00 Lasix PO DAILY@0800 COUNT INCLUDES THE [facility] Sodium Chloride 1,000 mls @ 147 mls/hr 08/15/19 01:30 08/15/19 11:48 Saline 0.9% IV Not Given .Q6H49M COUNT INCLUDES THE [facility] Ceftriaxone Sodium 1 gm/ 50 mls @ 100 mls/hr 08/15/19 21:00 Sodium Chloride IVPB Q24H COUNT INCLUDES THE [facility] Levothyroxine Sodium 112 mcg 08/16/19 06:00 Synthroid PO DAILY@0600 COUNT INCLUDES THE [facility] Loperamide HCl 2 mg 08/16/19 08:00 Imodium PO DAILY@0800 COUNT INCLUDES THE [facility] Losartan Potassium 50 mg 08/16/19 08:00 Cozaar PO DAILY@0800 COUNT INCLUDES THE [facility] Melatonin 10 mg 08/15/19 22:00 Melatonin PO HS@2200 COUNT INCLUDES THE [facility] Miscellaneous Information 1 each 08/15/19 01:25 Potassium Per Protocol MISCELLANE DAILY PRN Per Protocol Protocol Naloxone HCl 0.2 mg 08/15/19 02:57 Narcan IV Q2M PRN Opioid Reversal Patient's Own ( 1 patch 08/18/19 08:00 Buprenorphine [ TOPICAL Butrans 10 Mcg/Hour] TU@0800 COUNT INCLUDES THE [facility] 1 Patch) Sucralfate 1 gm 08/15/19 16:30 Carafate PO BID@0730,1630 COUNT INCLUDES THE [facility] Ursodiol 300 mg 08/15/19 20:00 Actigall PO BID@0800,2000 COUNT INCLUDES THE [facility] Intake and Output 08/15/19 08/15/19 08/15/19 06:59 14:59 22:59 Intake Total 480 Balance 480 Intake: Oral 480 Other: Voiding Method Bedpan Weight 87 kg 08/14/19 23:50 08/14/19 23:50 EKG Interpretations (text) Sinus rhythm with nonspecific ST-T changes Assessment and Plan (1) Syncope Current Visit: Yes Status: Acute Code(s): R55 - SYNCOPE AND COLLAPSE SNOMED Code(s): 180523611 (2) Recurrent falls Current Visit: Yes Status: Acute Code(s): R29.6 - REPEATED FALLS SNOMED Code(s): 909491253 (3) Elevated troponin Current Visit: Yes Status: Acute Code(s): R79.89 - OTHER SPECIFIED ABNORMAL FINDINGS OF BLOOD CHEMISTRY SNOMED Code(s): 019245201 (4) Hypokalemia Current Visit: Yes Status: Acute Code(s): E87.6 - HYPOKALEMIA SNOMED Code(s): 23514421 (5) Hyponatremia Current Visit: Yes Status: Acute Code(s): E87.1 - HYPO-OSMOLALITY AND HYPONATREMIA SNOMED Code(s): 98072648 (6) Essential hypertension Current Visit: Yes Status: Acute Code(s): I10 - ESSENTIAL (PRIMARY) HYPERTENSION SNOMED Code(s): 64526695 (7) Troponin level elevated Current Visit: Yes Status: Acute Code(s): R79.89 - OTHER SPECIFIED ABNORMAL FINDINGS OF BLOOD CHEMISTRY SNOMED Code(s): 162216832 Plan: Continue to monitor her for any Cardec arrhythmias. Check blood pressure for any postural changes. Elevated troponin values are not suggestive of acute coronary syndrome. It could was admitted to supply demand mismatch. We will get an echocardiogram. Increase activity as tolerated. Further recommendations depend upon the clinical course
[2019-08-15] MEDS: SUCRALFATE 1 GM TAB PO SCH (17:50)
[2019-08-15] MEDS: ursodioL 300 MG CAP PO SCH (20:01)
[2019-08-15] MEDS: MELATONIN 5 MG TABLET PO SCH (20:01)
[2019-08-15] MEDS: ATORVASTATIN 20 MG TAB PO SCH (20:01)
[2019-08-16] MEDS: LEVOTHYROXINE 112 MCG TAB PO SCH (06:38)
[2019-08-16] MEDS: SUCRALFATE 1 GM TAB PO SCH ×2 (06:38→16:35)
[2019-08-16] MEDS: SODIUM CHLORIDE 0.9% 1,000 ML IV SCH ×4 (06:39→20:24)
[2019-08-16 07:06] LABS: HCT 35.3 % (34.0-46.0); MCH 30.8 pg (25.0-35.0); MCHC 33.9 g/dL (31.0-37.0); MCV 90.8 fL (80.0-100.0); Mean Platelet Volume 7.3; Platelet Count 335 k/uL (150-450); RBC 3.89 m/uL (3.80-5.40); RDW 14.9 % (11.5-15.5); WBC 8.4 k/uL (3.8-10.6)
[2019-08-16 07:19] LABS: Calcium 8.7 mg/dL (8.4-10.2)
[2019-08-16 07:22] LABS: Potassium 2.7 mmol/L (3.5-5.1)
[2019-08-16] MEDS: CHOLECALCIFEROL 1,000 UNIT TAB PO SCH (09:52)
[2019-08-16] MEDS: amLODIPine 5 MG TAB PO SCH (09:52)
[2019-08-16] MEDS: LOSARTAN 50 MG TAB PO SCH (09:52)
[2019-08-16] MEDS: CLOPIDOGREL 75 MG TAB PO SCH (09:52)
[2019-08-16] MEDS: LOPERAMIDE 2 MG CAP PO SCH (09:53)
[2019-08-16] MEDS: POTASSIUM CHLORIDE ER 20 MEQ TAB.ER PO SCH ×3 (09:53→12:27)
[2019-08-16] MEDS: FUROSEMIDE 20 MG TAB PO SCH (09:53)
[2019-08-16] MEDS: ursodioL 300 MG CAP PO SCH ×2 (09:53→20:24)
--- NOTE | 2019-08-16 11:17 | P.PN ---
Subjective Progress Note Date: 08/16/19 This is an 85-year-old pleasant female who is a patient of visiting physician who lives at a care home facility. Patient's past medical history significant for hypertension, hyperlipidemia, osteoporosis arthritis, hypothyroidism, acid reflux, and spinal stenosis. Patient is a former smoker. Patient presented to the emergency department yesterday for generalized weakness and possible syncope. Patient states that she had 3 falls yesterday stating that her knees gave out due to weakness. She states the last time that she fell she was sitting on the toilet when she passed with past out. Patient denies any current headaches blurred vision double vision or nausea at that time. Denied any neck or back pain. Patient did not suffer any injuries with the falls. She does report a decreased appetite. Patient has had a TIA in the past 2. Currently taking Plavix. Patient denies any recent rashes, cough diarrhea constipation back pain hematuria dysuria urine frequency visual changes. At this time patient is sitting up in bed resting comfortably in no acute distress. Continues to deny any syncope dizziness or blurred vision. Patient does not have any urinary complaints such as dysuria, frequency or urgency. Patient states that she was unaware if she passed out or not. The health aide stated that she was out for about a second or 2 before she responded again. Blood pressure 131/80, pulse rate 65, respirations 18, temperature 98.7 pulse ox a 94% on room air. DVT 18.1, sodium 127, potassium 2.9, BUN 23, creatinine 1.27, troponin slightly elevated, initial lactic acid 2.3, 0.9 at this time. TSH 6.89, free T4 1.075, 08/15: Patient is resting in bed complaining of discomfort to her coccyx. Patient states that she has a sore that they have been applying cream to. Patient continues to denies any urinary complaints such as dysuria frequency or urgency. Still awaiting urinary culture. Patient remained afebrile, heart rate 63, respirations 22 blood pressure 153/67, pulse ox 94% on room air. WBC 8.4, hemoglobin 12.0, potassium 2.7, BUN 18, creatinine 0.8 Review Of Systems: Constitutional: No fever, no chills, no night sweats. No weight change. Report weakness, no fatigue or lethargy. No daytime sleepiness. EENT: No headache. No blurred vision or double vision, no loss of vision. No loss of Hearing, no ringing in the ears, no dizziness. No nasal drainage or congestion. No epistaxis. No sore throat. Lungs: No shortness of breath, cough, no sputum production. No wheezing. Cardiovascular: No chest pain, no lower extremity edema. No palpitations. No paroxysmal nocturnal dyspnea. No orthopnea. No lightheadedness or dizziness. No syncopal episodes. Abdominal: no abdominal discomfort. No nausea, vomiting. no diarrhea. No constipation. No bloody or tarry stools. no loss of appetite. Genitourinary: No dysuria, no increased frequency, urgency. No urinary retention. Musculoskeletal: No myalgias. Reports muscle weakness bilateral lower extremities, no gait dysfunction, no frequent falls. No back pain. No neck pain. Integumentary: No wounds, no lesions. No rash or pruritus. No unusual bruising. No change in hair or nails. Neurologic: No aphasia. No facial droop. No change in mentation. No head injury. No headache. No paralysis. No paresthesia. Psychiatric: No depression. No anxiety. No mood swings. Endocrine: No abnormal blood sugars. No weight change. No excessive sweating or thirst. Objective - Vital Signs Vital signs: Vital Signs Temp 98.6 F 08/16/19 08:00 Pulse 63 08/16/19 08:00 Resp 22 08/16/19 08:00 BP 153/67 08/16/19 08:00 Pulse Ox 94 L 08/16/19 08:00 Intake & Output 08/15/19 08/16/19 08/16/19 18:59 06:59 18:59 Intake Total 600 240 Balance 600 240 Weight 95 kg Intake: Oral 600 240 Other: Voiding Method Bedpan # Voids 2 - Exam General Appearance: Alert, cooperative, no distress, appears stated age. Neck HEENT: Supple, no lymphadenopathy, no thyroid enlargement, no carotid bruits. Lungs: Clear to auscultation without crackles or wheezes no rhonchi, no deformity. Chest Wall: Chest wall normal expansion with deep inspiration no tenderness and no deformity was found on exam, no costochondral pain or discomfort. Heart: Regular rate and rhythm, S1, S2 normal, no murmur, rub or gallop. Back: Symmetric, no curvature, ROM normal, no CVA tenderness. Abdomen: Soft, non-tender, no rebound or rigidity, no hepatosplenomegaly. Extremities: Extremities normal, atraumatic, no cyanosis or edema. Pulses: 2+ and symmetric. Skin: No open ulceration to the coccyx, dry scaly appearance noted Skin color, texture, tugor normal, no rashes or lesions. Neurologic: Alert oriented x3 cranial nerves II through XII intact, no motor deficit, + abnormal balance or gait - Labs CBC & Chem 7: 08/16/19 06:29 08/16/19 06:29 Labs: Abnormal Lab Results - Last 24 Hours (Table) 08/15/19 08/16/19 Range/Units 11:21 06:29 Sodium 132 L (137-145) mmol/L Potassium 2.7 L* (3.5-5.1) mmol/L Chloride 97 L (98-107) mmol/L BUN 18 H (7-17) mg/dL Glucose 102 H (74-99) mg/dL Troponin I 0.035 H* (0.000-0.034) ng/mL Assessment and Plan Plan: 1. Syncope with unclear etiology possible vasovagal versus DC versus arrhythmia. Continue cardiac monitoring, consult cardiology, echocardiogram: Sinus moderate concentric left ventricular atrophy, EF 55-60%, mild mitral regurgitation 2. Elevated troponin possible STEMI, consult cardiology, echocardiogram ordered 3. UTI continue with Rocephin 1 g daily, awaiting urinary culture 4. Hyponatremia continue with hydration 5. Hypokalemia potassium today 2.7 continue with the potassium protocol 20 mEq by mouth every 2 hours 3 doses 6. Stage III chronic kidney disease, stable 7. Hypertension continue amlodipine 5 mg daily, losartan 50 mg by mouth daily 8. Hyperlipidemia atorvastatin 20 mg by mouth at bedtime 9. Hypothyroidism. Continue Synthroid 112 mcg daily 10. Acid reflux: Carafate 1 g by mouth twice a day 11. Osteoarthritis. Continue acetaminophen 12. DVT prophylaxis: Pneumatic compression sleeves 13. GI prophylaxis: Carafate 1 g by mouth twice a day 14. Covid 19 pending Admit for minimum of 2 nights day Discharge plan: Home Impression and plan of care have been directed as dictated by the signing physician. Caroline Vásquez nurse practitioner acting as scribe for signing physician.
--- NOTE | 2019-08-16 12:36 | P.PN ---
Subjective Progress Note Date: 08/16/19 This is a 84-year-old female with history of hypertension, hyperlipidemia, hypothyroidism, spinal stenosis and previous possible TIAs. Patient complains of generalized weakness and falls. She thinks during one of these falling episodes, she might have lost consciousness for a few seconds. Apparently she was sitting on the toilet when this happened. Patient denies any chest pain, palpitations or dizziness. Since admission. No arrhythmias are documented. The episode could be vasovagal the cardiac arrhythmias cannot be excluded. We'll also check her for any postural hypotension. No history of any previous myocardial infarction. No change in the visual acuity or speech. She seemed to be completely disoriented at this time. We'll continue to monitor for any Cardec arrhythmias. Further recommended lipid upon clinical course 08/15: Patient is seen today in follow-up. She is denying any chest pain or shortness of breath. She has had no syncopal episodes here. No lightheadedness or dizziness. Patient states that she has been up to the commode chair but that is it. Orthostatics have not been checked. Patient is very resistant to getting out of bed. Potassium is 2.7 and is being replaced. Echocardiogram reveals EF of 55-60%, mild mitral regurgitation, mild tricuspid regurgitation. She has been afebrile, heart rate 63, blood pressure 153/67, pulse ox 94% on room air. Physical examination: GENERAL EXAM: Patient is alert and oriented in no acute distress HEENT: Normocephalic. Normal reaction of pupils, equal size, normal range of extraocular motion. No erythema or exudates in the throat. NECK: No masses, no nuchal rigidity. CHEST: No chest wall deformity. LUNGS: Equal air entry with no crackles or wheeze. HEART: S1 and S2 normal with no audible mumurs or gallops. Regular rhythm, femorals equal on both sides.. ABDOMEN: No hepatosplenomegaly, normal bowel sounds, no guarding or rigidity. SKIN: No rashes CENTRAL NERVOUS SYSTEM: No focal deficits. EXTREMITIES: No cyanosis, clubbing or edema. Assessment: Syncope Elevated troponin Hypokalemia Hyponatremia Hypertension Elevated troponin, acute coronary syndrome ruled out Chronic kidney disease stage III Hypothyroidism Gastroesophageal reflux disease Plan: Obtain orthostatic vital signs Increase activity Continue current cardiac medications Further recommendations based on clinical course. Nurse practitioner note has been reviewed, I agree with documented findings and plan of care. Patient was seen and examined. Objective - Vital Signs Vital signs: Vital Signs Temp 98.6 F 08/16/19 08:00 Pulse 63 08/16/19 08:00 Resp 22 08/16/19 08:00 BP 153/67 08/16/19 08:00 Pulse Ox 94 L 08/16/19 08:00 Intake & Output 08/15/19 08/16/19 08/16/19 18:59 06:59 18:59 Intake Total 600 240 Balance 600 240 Weight 95 kg Intake: Oral 600 240 Other: Voiding Method Bedpan # Voids 2 - Labs CBC & Chem 7: 08/16/19 06:29 08/16/19 06:29 Labs: Abnormal Lab Results - Last 24 Hours (Table) 08/15/19 08/16/19 Range/Units 11:21 06:29 Sodium 132 L (137-145) mmol/L Potassium 2.7 L* (3.5-5.1) mmol/L Chloride 97 L (98-107) mmol/L BUN 18 H (7-17) mg/dL Glucose 102 H (74-99) mg/dL Troponin I 0.035 H* (0.000-0.034) ng/mL
[2019-08-16] MEDS: ATORVASTATIN 20 MG TAB PO SCH (20:24)
[2019-08-16] MEDS: MELATONIN 5 MG TABLET PO SCH (21:59)
[2019-08-17] MEDS: LEVOTHYROXINE 112 MCG TAB PO SCH (06:17)
[2019-08-17] MEDS: SUCRALFATE 1 GM TAB PO SCH ×2 (06:17→16:49)
[2019-08-17 08:06] LABS: Basophils # (A) 0.1 k/uL (0-0.2); Basophils % (A) 1 %; Eosinophils # (A) 0.3 k/uL (0-0.7); Eosinophils % (A) 4 %; HCT 37.1 % (34.0-46.0); HGB 11.5 gm/dL (11.4-16.0); Lymphocytes # (A) 1.4 k/uL (1.0-4.8); Lymphocytes % (A) 19 %; MCH 28.6 pg (25.0-35.0); MCV 92.3 fL (80.0-100.0); Mean Platelet Volume 7.3; Monocytes # (A) 0.6 k/uL (0-1.0); Monocytes % (A) 8 %; Neutrophils # (A) 4.9 k/uL (1.3-7.7); Neutrophils % (A) 67 %; Platelet Count 325 k/uL (150-450); RBC 4.01 m/uL (3.80-5.40); WBC 7.3 k/uL (3.8-10.6)
[2019-08-17] MEDS: SODIUM CHLORIDE 0.9% 1,000 ML IV SCH ×2 (08:16→09:15)
[2019-08-17 08:23] LABS: African American GFR (CKD) >90 (>60 ml/min/1.73 sqM); Anion Gap 6 mmol/L; Blood Urea Nitrogen 10 mg/dL (7-17); Calcium 8.8 mg/dL (8.4-10.2); Carbon Dioxide 29 mmol/L (22-30); Chloride 101 mmol/L (98-107); Glucose 100 mg/dL (74-99); Non-African American GFR(CKD) 82 (>60 ml/min/1.73 sqM); Potassium 3.2 mmol/L (3.5-5.1); Sodium 136 mmol/L (137-145)
[2019-08-17] MEDS: amLODIPine 5 MG TAB PO SCH (09:14)
[2019-08-17] MEDS: FUROSEMIDE 20 MG TAB PO SCH (09:14)
[2019-08-17] MEDS: POTASSIUM CHLORIDE ER 20 MEQ TAB.ER PO SCH ×2 (09:14→11:05)
[2019-08-17] MEDS: LOSARTAN 50 MG TAB PO SCH (09:14)
[2019-08-17] MEDS: LOPERAMIDE 2 MG CAP PO SCH (09:15)
[2019-08-17] MEDS: CHOLECALCIFEROL 1,000 UNIT TAB PO SCH (09:15)
[2019-08-17] MEDS: CLOPIDOGREL 75 MG TAB PO SCH (09:15)
[2019-08-17] MEDS: ursodioL 300 MG CAP PO SCH ×2 (09:16→21:28)
--- NOTE | 2019-08-17 13:56 | P.PN ---
Subjective Progress Note Date: 08/17/19 This is an 85-year-old pleasant female who is a patient of visiting physician who lives at a [facility] facility. Patient's past medical history significant for hypertension, hyperlipidemia, osteoporosis arthritis, hypothyroidism, acid reflux, and spinal stenosis. Patient is a former smoker. Patient presented to the emergency department yesterday for generalized weakness and possible syncope. Patient states that she had 3 falls yesterday stating that her knees gave out due to weakness. She states the last time that she fell she was sitting on the toilet when she passed with past out. Patient denies any current headaches blurred vision double vision or nausea at that time. Denied any neck or back pain. Patient did not suffer any injuries with the falls. She does report a decreased appetite. Patient has had a TIA in the past 2. Currently taking Plavix. Patient denies any recent rashes, cough diarrhea constipation back pain hematuria dysuria urine frequency visual changes. At this time patient is sitting up in bed resting comfortably in no acute distress. Continues to deny any syncope dizziness or blurred vision. Patient does not have any urinary complaints such as dysuria, frequency or urgency. Patient states that she was unaware if she passed out or not. The health aide stated that she was out for about a second or 2 before she responded again. Blood pressure 131/80, pulse rate 65, respirations 18, temperature 98.7 pulse ox a 94% on room air. DVT 18.1, sodium 127, potassium 2.9, BUN 23, creatinine 1.27, troponin slightly elevated, initial lactic acid 2.3, 0.9 at this time. TSH 6.89, free T4 1.075, 08/15: Patient is resting in bed complaining of discomfort to her coccyx. Patient states that she has a sore that they have been applying cream to. Patient continues to denies any urinary complaints such as dysuria frequency or urgency. Still awaiting urinary culture. Patient remained afebrile, heart rate 63, respirations 22 blood pressure 153/67, pulse ox 94% on room air. WBC 8.4, hemoglobin 12.0, potassium 2.7, BUN 18, creatinine 0.8 08/16: Patient is afebrile, heart rate 60, blood pressure 150/74, pulse ox 95% on room air. Lab work reveals sodium 136, potassium 3.2 and will be replaced, BUN 10 and creatinine 0.63, CBC unremarkable. Echocardiogram reveals EF of 55-60%, mild mitral regurgitation, mild tricuspid regurgitation. She has been afebrile, heart rate 63, blood pressure 153/67, pulse ox 94% on room air. The patient has had no further syncopal or near syncope episodes. She is very resistant to getting out of bed. PT to evaluate today. IV fluids will be discontinued and patient transferred to the [facility] floor. Anticipate discharge home tomorrow. Patient resides in assisted living. Review Of Systems: Constitutional: No fever, no chills, no night sweats. No weight change. Report weakness, no fatigue or lethargy. No daytime sleepiness. EENT: No headache. No blurred vision or double vision, no loss of vision. No loss of Hearing, no ringing in the ears, no dizziness. No nasal drainage or congestion. No epistaxis. No sore throat. Lungs: No shortness of breath, cough, no sputum production. No wheezing. Cardiovascular: No chest pain, no lower extremity edema. No palpitations. No paroxysmal nocturnal dyspnea. No orthopnea. No lightheadedness or dizziness. No syncopal episodes. Abdominal: no abdominal discomfort. No nausea, vomiting. no diarrhea. No constipation. No bloody or tarry stools. no loss of appetite. Genitourinary: No dysuria, no increased frequency, urgency. No urinary retention. Musculoskeletal: No myalgias. Reports muscle weakness bilateral lower extremities, no gait dysfunction, no frequent falls. No back pain. No neck pain. Integumentary: No wounds, no lesions. No rash or pruritus. No unusual bruising. No change in hair or nails. Neurologic: No aphasia. No facial droop. No change in mentation. No head injury. No headache. No paralysis. No paresthesia. Psychiatric: No depression. No anxiety. No mood swings. Endocrine: No abnormal blood sugars. No weight change. No excessive sweating or thirst. Physical examination: General Appearance: Alert, cooperative, no distress, appears stated age. Amanda ent is resting in bed and appears comfortable. Neck HEENT: Supple, no lymphadenopathy, no thyroid enlargement, no carotid bruits. Lungs: Clear to auscultation without crackles or wheezes no rhonchi, no deformity. Chest Wall: Chest wall normal expansion with deep inspiration no tenderness and no deformity was found on exam, no costochondral pain or discomfort. Heart: Regular rate and rhythm, S1, S2 normal, no murmur, rub or gallop. Back: Symmetric, no curvature, ROM normal, no CVA tenderness. Abdomen: Soft, non-tender, no rebound or rigidity, no hepatosplenomegaly. Extremities: Extremities normal, atraumatic, no cyanosis or edema. Pulses: 2+ and symmetric. Skin: No open ulceration to the coccyx, dry scaly appearance noted Skin color, texture, tugor normal, no rashes or lesions. Neurologic: Alert oriented x3 cranial nerves II through XII intact, no motor deficit, + abnormal balance or gait Assessment and Plan: 1. Syncope with unclear etiology possible vasovagal versus NE versus arrhythmia. Continue cardiac monitoring, consult cardiology appreciated, echocardiogram as above. Patient has had no arrhythmias. Patient will be transferred to the [facility] floor. 2. Elevated troponin without evidence of acute coronary syndrome 3. UTI continue with Rocephin 1 g daily 4. Hyponatremia continue with hydration 5. Hypokalemia potassium today 2.7 continue with the potassium protocol 20 mEq by mouth every 2 hours 3 doses 6. Stage III chronic kidney disease, stable 7. Hypertension continue amlodipine 5 mg daily, losartan 50 mg by mouth daily 8. Hyperlipidemia atorvastatin 20 mg by mouth at bedtime 9. Hypothyroidism. Continue Synthroid 112 mcg daily 10. Acid reflux: Carafate 1 g by mouth twice a day 11. Osteoarthritis. Continue acetaminophen 12. DVT prophylaxis: Pneumatic compression sleeves 13. GI prophylaxis: Carafate 1 g by mouth twice a day 14. Covid 19 infection not present. Discharge plan: [facility] with home care Impression and plan of care have been directed as dictated by the signing physician. Marquita Ridley nurse practitioner acting as scribe for signing physician. Objective - Vital Signs Vital signs: Vital Signs Temp 97.7 F 08/17/19 11:07 Pulse 113 H 08/17/19 11:07 Resp 20 08/17/19 11:07 BP 129/71 08/17/19 11:07 Pulse Ox 95 08/17/19 11:07 Intake & Output 08/16/19 08/17/19 08/17/19 18:59 06:59 18:59 Intake Total 360 450 240 Balance 360 450 240 Weight 94.5 kg Intake: Oral 360 450 240 Other: Voiding Method Bedpan Bedpan # Voids 2 5 1 # Bowel Movements 3 1 - Labs CBC & Chem 7: 08/17/19 07:25 08/17/19 07:25 Labs: Abnormal Lab Results - Last 24 Hours (Table) 08/17/19 Range/Units 07:25 Sodium 136 L (137-145) mmol/L Potassium 3.2 L (3.5-5.1) mmol/L Glucose 100 H (74-99) mg/dL
[2019-08-17] MEDS: ATORVASTATIN 20 MG TAB PO SCH (20:02)
[2019-08-17 21:20] VITALS: PULSE 67; TEMP 98.2
[2019-08-17] MEDS: MELATONIN 5 MG TABLET PO SCH (21:28)
[2019-08-18 04:57] VITALS: BP 134/74; RESP 20
[2019-08-18] MEDS: SUCRALFATE 1 GM TAB PO SCH (07:49)
[2019-08-18] MEDS: amLODIPine 5 MG TAB PO SCH (07:50)
[2019-08-18] MEDS: CHOLECALCIFEROL 1,000 UNIT TAB PO SCH (07:50)
[2019-08-18] MEDS: LEVOTHYROXINE 112 MCG TAB PO SCH (07:50)
[2019-08-18] MEDS: LOPERAMIDE 2 MG CAP PO SCH (07:51)
[2019-08-18] MEDS: CLOPIDOGREL 75 MG TAB PO SCH (07:51)
[2019-08-18] MEDS: ursodioL 300 MG CAP PO SCH (07:51)
[2019-08-18] MEDS: LOSARTAN 50 MG TAB PO SCH (07:51)
[2019-08-18] MEDS: FUROSEMIDE 20 MG TAB PO SCH (07:51)
[2019-08-18] MEDS ORDERED: BUPRENORPHINE TOPICAL SCH (08:00)
--- NOTE | 2019-08-18 09:03 | P.DS ---
Providers Date of admission: 08/15/19 03:21 Expected date of discharge: 08/18/19 Attending physician: Rashawn Lau Consults: 08/15/19 02:58 Consult Physician Routine Consulting Provider: [facility] Consult Reason/Comments: Elevated trop; Weakness; Syncope Do you want consulting provider notified?: Yes Primary care physician: [facility] Course: This is an 85-year-old pleasant female who is a patient of visiting physician who lives at a half-way facility. Patient's past medical history significant for hypertension, hyperlipidemia, osteoporosis arthritis, hypothyroidism, acid reflux, and spinal stenosis. Patient is a former smoker. Patient presented to the emergency department yesterday for generalized weakness and possible syncope. Patient states that she had 3 falls yesterday stating that her knees gave out due to weakness. She states the last time that she fell she was sitting on the toilet when she passed with past out. Patient denies any current headaches blurred vision double vision or nausea at that time. Denied any neck or back pain. Patient did not suffer any injuries with the falls. She does report a decreased appetite. Patient has had a TIA in the past 2. Currently taking Plavix. Patient denies any recent rashes, cough diarrhea constipation back pain hematuria dysuria urine frequency visual changes. At this time patient is sitting up in bed resting comfortably in no acute distress. Continues to deny any syncope dizziness or blurred vision. Patient does not have any urinary complaints such as dysuria, frequency or urgency. Patient states that she was unaware if she passed out or not. The health aide stated that she was out for about a second or 2 before she responded again. Blood pressure 131/80, pulse rate 65, respirations 18, temperature 98.7 pulse ox a 94% on room air. DVT 18.1, sodium 127, potassium 2.9, BUN 23, creatinine 1.27, troponin slightly elevated, initial lactic acid 2.3, 0.9 at this time. TSH 6.89, free T4 1.075, 08/15: Patient is resting in bed complaining of discomfort to her coccyx. Patient states that she has a sore that they have been applying cream to. Amanda ent continues to denies any urinary complaints such as dysuria frequency or urgency. Still awaiting urinary culture. Patient remained afebrile, heart rate 63, respirations 22 blood pressure 153/67, pulse ox 94% on room air. WBC 8.4, hemoglobin 12.0, potassium 2.7, BUN 18, creatinine 0.8 08/16: Patient is afebrile, heart rate 60, blood pressure 150/74, pulse ox 95% on room air. Lab work reveals sodium 136, potassium 3.2 and will be replaced, BUN 10 and creatinine 0.63, CBC unremarkable. Echocardiogram reveals EF of 55-60%, mild mitral regurgitation, mild tricuspid regurgitation. She has been afebrile, heart rate 63, blood pressure 153/67, pulse ox 94% on room air. The patient has had no further syncopal or near syncope episodes. She is very resistant to getting out of bed. PT to evaluate today. IV fluids will be discontinued and patient transferred to the [facility] floor. Anticipate discharge home tomorrow. Patient resides in assisted living. 08/17: Family concerned the patient is having difficulty swallowing and food getting stuck in her throat and also concerned about some nausea with eating and question whether patient needs a gallbladder ultrasound. When patient is qu estions about these things. She denies having any swallowing difficulty. She is eating all of her meals. She denies any nausea or lack of appetite. We will order an ultrasound of the gallbladder prior to discharge. Patient does not need to wait for the report. Otherwise patient has been stable. PT has recommended subacute rehab and she is scheduled to go to [facility]. Patient has been afebrile, heart rate 67, blood pressure 134/74, pulse ox 94% on room air. Potassium was replaced yesterday and repeat this morning at 4. Patient will be discharged in stable condition. [facility] Lau. Discharge diagnoses: 1. Syncope with unclear etiology possible vasovagal. 2. Elevated troponin, acute coronary syndrome ruled out 3. UTI 4. Hyponatremia 5. Hypokalemia 6. Stage III chronic kidney disease, stable 7. Hypertension 8. Hyperlipidemia 9. Hypothyroidism 10. Acid reflux 11. Osteoarthritis, generalized 12. COVID-19 infection not present. Discharge plan: [facility] Impression and plan of care have been directed as dictated by the signing physician. Marquita Ridley nurse practitioner acting as scribe for signing physician. Patient Condition at Discharge: Good Plan - Discharge Summary New Discharge Prescriptions: New Cefuroxime [Ceftin] 250 mg PO BID 4 Days #8 tab Continue Levothyroxine Sodium [Levoxyl] 112 mcg PO DAILY@0600 Cholecalciferol [Vitamin D3 (25 Mcg = 1000 Iu)] 2,000 unit PO DAILY@0800 Tolnaftate [Tinactin] 1 applic TOPICAL BID PRN PRN Reason: ITCHING/REDNESS Hydrocortisone Oint [Hydrocortisone 1% Oint] 1 applic TOPICAL BID PRN PRN Reason: Skin Irritation guaiFENesin SYRUP 100MG/5ML [Robitussin] 200 mg PO Q6H PRN PRN Reason: Cough Silver Nitrate 0.5% Topical Solution 1 applic TOPICAL DAILY Magnesium Hydroxide [Milk of Magnesia] 2,400 mg PO HS PRN PRN Reason: Constipation Acetaminophen [Tylenol Arthritis] 650 mg PO Q4H PRN PRN Reason: Pain Ketoconazole 2% Shampoo [Nizoral] 1 applic TOPICAL DAILY PRN PRN Reason: DRY SCALP Kaolin/Pectin [Kaolin Pectin Suspension] 30 ml PO DAILY PRN PRN Reason: Diarrhea Menthol [Biofreeze] 1 applic TOPICAL QID PRN PRN Reason: Pain Ursodiol 300 mg PO BID@0800,2000 Sucralfate [Carafate] 1 gm PO BID@0730,1630 Melatonin 10 mg PO HS@2200 Losartan [Cozaar] 50 mg PO DAILY@0800 Loperamide [Imodium] 2 mg PO DAILY@0800 Lansoprazole [Prevacid] 30 mg PO DAILY@0800 Furosemide [Lasix] 20 mg PO DAILY@0800 Multivitamins, Thera [Multivitamin (formulary)] 1 tab PO DAILY@1999 Clotrimazole [Clotrimazole 1% Top Soln] 1 - 2 drops TOPICAL DAILY@1999 Clopidogrel [Plavix] 75 mg PO DAILY@0800 amLODIPine [Norvasc] 5 mg PO DAILY@0800 Atorvastatin [Lipitor] 20 mg PO HS@1999 Abi-Lanta [id number] Susp 15 ml PO BID PRN PRN Reason: Indigestion Buprenorphine [Butrans 10 MCG/HOUR] 1 patch TRANSDERM TU@0800 #1 patch Discontinued traMADol HCl [Ultram] 50 mg PO Q8HR PRN PRN Reason: Pain Acetaminophen Tab [Tylenol] 650 mg PO Q4H PRN PRN Reason: FEVER >100 OR PAIN Naproxen 500 mg PO BID@08,1999 Hydrochlorothiazide 50 mg PO DAILY@0800 Discharge Medication List Levothyroxine Sodium [Levoxyl] 112 mcg PO DAILY@59907/08/13 [History] Cholecalciferol [Vitamin D3 (25 Mcg = 1000 Iu)] 2,000 unit PO DAILY@0800 12/27/16 [History] Acetaminophen [Tylenol Arthritis] 650 mg PO Q4H PRN 08/14/19 [History] Atorvastatin [Lipitor] 20 mg PO HS@199908/14/19 [History] Clopidogrel [Plavix] 75 mg PO DAILY@79908/14/19 [History] Clotrimazole [Clotrimazole 1% Top Soln] 1 - 2 drops TOPICAL DAILY@199908/14/19 [History] Furosemide [Lasix] 20 mg PO DAILY@79908/14/19 [History] Abi-Lanta 085-000-43du/5ml Susp 15 ml PO BID PRN 08/14/19 [History] Hydrocortisone Oint [Hydrocortisone 1% Oint] 1 applic TOPICAL BID PRN 08/14/19 [History] Kaolin/Pectin [Kaolin Pectin Suspension] 30 ml PO DAILY PRN 08/14/19 [History] Ketoconazole 2% Shampoo [Nizoral] 1 applic TOPICAL DAILY PRN 08/14/19 [History] Lansoprazole [Prevacid] 30 mg PO DAILY@79908/14/19 [History] Loperamide [Imodium] 2 mg PO DAILY@79908/14/19 [History] Losartan [Cozaar] 50 mg PO DAILY@79908/14/19 [History] Magnesium Hydroxide [Milk of Magnesia] 2,400 mg PO HS PRN 08/14/19 [History] Melatonin 10 mg PO HS@219908/14/19 [History] Menthol [Biofreeze] 1 applic TOPICAL QID PRN 08/14/19 [History] Multivitamins, Thera [Multivitamin (formulary)] 1 tab PO DAILY@199908/14/19 [History] Silver Nitrate 0.5% Topical Solution 1 applic TOPICAL DAILY 08/14/19 [History] Sucralfate [Carafate] 1 gm PO BID@0730,1630 08/14/19 [History] Tolnaftate [Tinactin] 1 applic TOPICAL BID PRN 08/14/19 [History] Ursodiol 300 mg PO BID@0800,199908/14/19 [History] amLODIPine [Norvasc] 5 mg PO DAILY@0800 08/14/19 [History] guaiFENesin SYRUP 100MG/5ML [Robitussin] 200 mg PO Q6H PRN 08/14/19 [History] Buprenorphine [Butrans 10 MCG/HOUR] 1 patch TRANSDERM TU@0800 #1 patch 08/18/19 [Rx] Cefuroxime [Ceftin] 250 mg PO BID 4 Days #8 tab 08/18/19 [Rx] Follow up Appointment(s)/Referral(s): Rashawn Lau MD [Primary Care Provider] - 1-2 days Patient Instructions/Handouts: Syncope (DC), Fall Prevention for Older Adults (DC), Hypertension in the Older Adult (DC)
--- NOTE | 2019-08-18 15:26 | US ---
EXAMINATION TYPE: US abdomen limited DATE OF EXAM: 08/18/2019 COMPARISON: NONE CLINICAL HISTORY: chronic cholecystitis. EXAM MEASUREMENTS: Liver Length: 16.8 cm Gallbladder Wall: 0.2 cm CBD: 0.7 cm Right Kidney: 10.7 x 5.3 x 4.4 cm Pancreas: duct seen measuring 0.4cm Liver: wnl Gallbladder: limited visualization, large amount of shadowing, visualized portion of wall measures w nl Evidence for sonographic Oconnor's sign: no CBD: dilated Right Kidney: wnl IMPRESSION: 1. The common bile duct is dilated measuring 7 mm. Distal CBD stone in the differential diagnosis. Ad ditionally, there is shadowing from the gallbladder fossa which could represent a collapsed gallbladd er with gallstones. Confirmation with CT scan recommended given the limitation of the exam.
== END 2019-08-18 17:31 | DRG 312 ==
LOC: EC 22:31 → 3SCARD 08-15 03:21 → 5NMEDONC 08-17 18:12
PROVIDERS: ADMIT Internal Medicine Geriatric Medicine; ATTEND Internal Medicine Geriatric Medicine
DX: R55 Syncope and collapse (principal); E87.1 Hypo-osmolality and hyponatremia; N17.9 Acute kidney failure, unspecified; N39.0 Urinary tract infection, site not specified; E03.9 Hypothyroidism, unspecified; E78.5 Hyperlipidemia, unspecified; E86.0 Dehydration; E87.6 Hypokalemia; I12.9 Hypertensive chronic kidney disease with stage 1 through stage 4 chronic kidney disease, or unspecified chronic kidney disease; K21.9 Gastro-esophageal reflux disease without esophagitis; M19.90 Unspecified osteoarthritis, unspecified site; M81.0 Age-related osteoporosis without current pathological fracture; N18.3 Chronic kidney disease, stage 3 (moderate); R13.10 Dysphagia, unspecified; R29.6 Repeated falls; I08.1 Rheumatic disorders of both mitral and tricuspid valves; Z79.02 Long term (current) use of antithrombotics/antiplatelets; Z79.890 Hormone replacement therapy; Z11.59 Encounter for screening for other viral diseases; Z79.899 Other long term (current) drug therapy; Z83.3 Family history of diabetes mellitus; Z86.73 Personal history of transient ischemic attack (TIA), and cerebral infarction without residual deficits; Z87.891 Personal history of nicotine dependence; Z90.710 Acquired absence of both cervix and uterus; Z90.49 Acquired absence of other specified parts of digestive tract; Z80.42 Family history of malignant neoplasm of prostate; M48.00 Spinal stenosis, site unspecified
CPT/HCPCS: 36415; 70450; 71046; 76705; 80048; 80053; 81001; 83605; 83735; 84132; 84439; 84443; 84484; 85025; 85027; 85610; 85730; 93005; 93306; 93880; 94760; 96361; 96374; 99285

== ENCOUNTER 2019-12-13 11:36 | Inpatient (IN) | payer MEDICARE, OTHER ==
[2019-12-13] MEDS ORDERED: SODIUM CHLORIDE 0.9% 500 ML 500 ML IV STA (12:15)
--- NOTE | 2019-12-13 12:35 | ED ---
General Adult HPI - General Chief complaint: Syncope Stated complaint: Weakness Time Seen by Provider: 12/13/19 12:15 Source: patient, EMS, RN notes reviewed Mode of arrival: EMS Limitations: no limitations - History of Present Illness Initial comments: 84-year-old female presents emergency Department from [facility] home to complaint of possible syncope. Patient states she just generalized feels weak at this point. Family states that she had episodes like this in the past in which she is found to be dehydrated, urinary tract infection. Patient reportedly has not been getting out of bed at the [facility] home secondary to one case of Covid. Patient has cough cold-like symptoms. Patient reportedly was brought to the common room in which she started crying stating that she did not feel well and seemed to become lethargic or may have passed out. She may woke up and had no complaints. Patient denies headache, dizziness, blurred vision no chest pain or shortness breath. - Related Data Home Medications Medication Instructions Recorded Confirmed Levothyroxine Sodium [Levoxyl] 112 mcg PO DAILY@0607/08/08/14/19 Cholecalciferol [Vitamin D3 (25 2,000 unit PO DAILY@0800 12/27/16 08/14/19 Mcg = 1000 Iu)] Acetaminophen [Tylenol Arthritis] 650 mg PO Q4H PRN 08/14/19 08/14/19 Atorvastatin [Lipitor] 20 mg PO HS@199908/14/19 08/14/19 Clopidogrel [Plavix] 75 mg PO DAILY@79908/14/19 08/14/19 Clotrimazole [Clotrimazole 1% Top 1 - 2 drops TOPICAL DAILY@199908/14/19 08/14/19 Soln] Furosemide [Lasix] 20 mg PO DAILY@79908/14/19 08/14/19 Abi-Lanta 608-257-48er/5ml Susp 15 ml PO BID PRN 08/14/19 08/14/19 Hydrocortisone Oint 1 applic TOPICAL BID PRN 08/14/19 08/14/19 [Hydrocortisone 1% Oint] Kaolin/Pectin [Kaolin Pectin 30 ml PO DAILY PRN 08/14/19 08/14/19 Suspension] Ketoconazole 2% Shampoo [Nizoral] 1 applic TOPICAL DAILY PRN 08/14/19 08/14/19 Lansoprazole [Prevacid] 30 mg PO DAILY@0808/14/19 08/14/19 Loperamide [Imodium] 2 mg PO DAILY@79908/14/19 08/14/19 Losartan [Cozaar] 50 mg PO DAILY@0808/14/19 08/14/19 Magnesium Hydroxide [Milk of 2,400 mg PO HS PRN 08/14/19 08/14/19 Magnesia] Melatonin 10 mg PO HS@22008/14/19 08/14/19 Menthol [Biofreeze] 1 applic TOPICAL QID PRN 08/14/19 08/14/19 Multivitamins, Thera [Multivitamin 1 tab PO DAILY@199908/14/19 08/14/19 (formulary)] Silver Nitrate 0.5% Topical 1 applic TOPICAL DAILY 08/14/19 08/14/19 Solution Sucralfate [Carafate] 1 gm PO BID@0730,1630 08/14/19 08/14/19 Tolnaftate [Tinactin] 1 applic TOPICAL BID PRN 08/14/19 08/14/19 amLODIPine [Norvasc] 5 mg PO DAILY@79908/14/19 08/14/19 guaiFENesin SYRUP 100MG/5ML 200 mg PO Q6H PRN 08/14/19 08/14/19 [Robitussin] ursodioL [Ursodiol] 300 mg PO BID@0800,199908/14/19 08/14/19 Previous Rx's Medication Instructions Recorded Buprenorphine [Butrans 10 MCG/HOUR] 1 patch TRANSDERM TU@0800 #1 patch 08/18/19 Cefuroxime [Ceftin] 250 mg PO BID 4 Days #8 tab 08/18/19 Allergies Allergy/AdvReac Type Severity Reaction Status Date / Time codeine AdvReac Nausea Verified 08/14/19 22:54 Review of Systems ROS Statement: Those systems with pertinent positive or pertinent negative responses have been documented in the HPI. ROS Other: All systems not noted in ROS Statement are negative. Past Medical History Past Medical History: GERD/Reflux, Hyperlipidemia, Hypertension, Musculoskeletal Disorder, Osteoarthritis (OA), Skin Disorder, Thyroid Disorder Additional Past Medical History / Comment(s): WOUND ON BUTTOCKS; PINCHED NERVE- AFFECTS LEGS, spinal stenosis History of Any Multi-Drug Resistant Organisms: None Reported Past Surgical History: Adenoidectomy, Appendectomy, Hernia Repair, Hysterectomy, Joint Replacement, Tonsillectomy Additional Past Surgical History / Comment(s): PRABHAKAR. KNEE REPLACEMENTS ,UMBILICAL HERNIA Past Anesthesia/Blood Transfusion Reactions: No Reported Reaction Past Psychological History: No Psychological Hx Reported Smoking Status: Never smoker Past Alcohol Use History: Occasional Past Drug Use History: None Reported - Past Family History Father Family Medical History: Cancer Additional Family Medical History / Comment(s): PROSTATE CA Brother(s) Family Medical History: Cancer, Diabetes Mellitus Additional Family Medical History / Comment(s): ONE BROTHER HAD PROSTATE CA & ANOTHER BROTHER HAS DIABETES General Exam Limitations: no limitations General appearance: alert, in no apparent distress Head exam: Present: atraumatic, normocephalic, normal inspection Eye exam: Present: normal appearance, PERRL, EOMI. Absent: scleral icterus, conjunctival injection, periorbital swelling ENT exam: Present: normal exam, normal oropharynx, mucous membranes moist Neck exam: Present: normal inspection, full ROM. Absent: tenderness, meningismus, lymphadenopathy Respiratory exam: Present: normal lung sounds bilaterally. Absent: respiratory distress, wheezes, rales, rhonchi, stridor Cardiovascular Exam: Present: regular rate, normal rhythm, normal heart sounds. Absent: systolic murmur, diastolic murmur, rubs, gallop, clicks Neurological exam: Present: alert, oriented X3, CN II-XII intact Psychiatric exam: Present: normal affect, normal mood Skin exam: Present: warm, dry, intact, normal color. Absent: rash Course Vital Signs 12/13/19 11:57 Temperature 97.4 F L Pulse Rate 69 Respiratory 16 Rate Blood Pressure 107/57 O2 Sat by Pulse 96 Oximetry Medical Decision Making - Medical Decision Making 84-year-old female presented for, increased weakness. Patient's found to have urinary tract infection with mild lactic acidosis. Patient pressure is stable at time. Patient will be admitted for IV advised, IV fluids with physical science aide apy. - Lab Data Result diagrams: 12/13/19 12:33 12/13/19 12:33 Lab Results 12/13/19 12/13/19 12/13/19 Range/Units 12:33 12:33 12:33 WBC 9.6 (3.8-10.6) k/uL RBC 4.50 (3.80-5.40) m/uL Hgb 14.0 (11.4-16.0) gm/dL Hct 43.1 (34.0-46.0) % MCV 95.7 (80.0-100.0) fL MCH 31.2 (25.0-35.0) pg MCHC 32.6 (31.0-37.0) g/dL RDW 13.9 (11.5-15.5) % Plt Count 258 (150-450) k/uL Neutrophils % 72 % Lymphocytes % 18 % Monocytes % 5 % Eosinophils % 3 % Basophils % 1 % Neutrophils # 6.9 (1.3-7.7) k/uL Lymphocytes # 1.7 (1.0-4.8) k/uL Monocytes # 0.5 (0-1.0) k/uL Eosinophils # 0.3 (0-0.7) k/uL Basophils # 0.1 (0-0.2) k/uL PT 11.0 (9.0-12.0) sec INR 1.1 (<1.2) APTT 25.9 (22.0-30.0) sec Sodium (137-145) mmol/L Potassium (3.5-5.1) mmol/L Chloride (98-107) mmol/L Carbon Dioxide (22-30) mmol/L Anion Gap mmol/L BUN (7-17) mg/dL Creatinine (0.52-1.04) mg/dL Est GFR (CKD-EPI)AfAm (>60 ml/min/1.73 sqM) Est GFR (CKD-EPI)NonAf (>60 ml/min/1.73 sqM) Glucose (74-99) mg/dL Plasma Lactic Acid Juan A (0.7-2.0) mmol/L Calcium (8.4-10.2) mg/dL Magnesium (1.6-2.3) mg/dL Total Bilirubin (0.2-1.3) mg/dL AST (14-36) U/L ALT (4-34) U/L Alkaline Phosphatase (38-126) U/L Troponin I (0.000-0.034) ng/mL Total Protein (6.3-8.2) g/dL Albumin (3.5-5.0) g/dL Urine Color Yellow Urine Appearance Cloudy H (Clear) Urine pH 8.0 (5.0-8.0) Ur Specific Wilson 1.013 (1.001-1.035) Urine Protein Trace H (Negative) Urine Glucose (UA) Negative (Negative) Urine Ketones Negative (Negative) Urine Blood Negative (Negative) Urine Nitrite Negative (Negative) Urine Bilirubin Negative (Negative) Urine Urobilinogen <2.0 (<2.0) mg/dL Ur Leukocyte Esterase Large H (Negative) Urine RBC 1 (0-5) /hpf Urine WBC 53 H (0-5) /hpf Ur Squamous Epith Cells 1 (0-4) /hpf Urine Bacteria Many H (None) /hpf Hyaline Casts 15 H (0-2) /lpf Urine Mucus Rare H (None) /hpf 12/13/19 12/13/19 12/13/19 Range/Units 12:33 12:33 12:33 WBC (3.8-10.6) k/uL RBC (3.80-5.40) m/uL Hgb (11.4-16.0) gm/dL Hct (34.0-46.0) % MCV (80.0-100.0) fL MCH (25.0-35.0) pg MCHC (31.0-37.0) g/dL RDW (11.5-15.5) % Plt Count (150-450) k/uL Neutrophils % % Lymphocytes % % Monocytes % % Eosinophils % % Basophils % % Neutrophils # (1.3-7.7) k/uL Lymphocytes # (1.0-4.8) k/uL Monocytes # (0-1.0) k/uL Eosinophils # (0-0.7) k/uL Basophils # (0-0.2) k/uL PT (9.0-12.0) sec INR (<1.2) APTT (22.0-30.0) sec Sodium 135 L (137-145) mmol/L Potassium 3.9 (3.5-5.1) mmol/L Chloride 100 (98-107) mmol/L Carbon Dioxide 27 (22-30) mmol/L Anion Gap 8 mmol/L BUN 14 (7-17) mg/dL Creatinine 0.69 (0.52-1.04) mg/dL Est GFR (CKD-EPI)AfAm >90 (>60 ml/min/1.73 sqM) Est GFR (CKD-EPI)NonAf 80 (>60 ml/min/1.73 sqM) Glucose 157 H (74-99) mg/dL Plasma Lactic Acid Juan A 3.1 H* (0.7-2.0) mmol/L Calcium 10.2 (8.4-10.2) mg/dL Magnesium 1.8 (1.6-2.3) mg/dL Total Bilirubin 0.6 (0.2-1.3) mg/dL AST 22 (14-36) U/L ALT 11 (4-34) U/L Alkaline Phosphatase 112 (38-126) U/L Troponin I <0.012 (0.000-0.034) ng/mL Total Protein 5.9 L (6.3-8.2) g/dL Albumin 3.5 (3.5-5.0) g/dL Urine Color Urine Appearance (Clear) Urine pH (5.0-8.0) Ur Specific Wilson (1.001-1.035) Urine Protein (Negative) Urine Glucose (UA) (Negative) Urine Ketones (Negative) Urine Blood (Negative) Urine Nitrite (Negative) Urine Bilirubin (Negative) Urine Urobilinogen (<2.0) mg/dL Ur Leukocyte Esterase (Negative) Urine RBC (0-5) /hpf Urine WBC (0-5) /hpf Ur Squamous Epith Cells (0-4) /hpf Urine Bacteria (None) /hpf Hyaline Casts (0-2) /lpf Urine Mucus (None) /hpf Disposition Clinical Impression: Weakness, Syncope, Urinary tract infection, Lactic acidosis Disposition: ADMITTED IP TO THIS [facility] Condition: Fair Referrals: Rashawn Lau MD [Primary Care Provider] - 1-2 days
[2019-12-13 12:43] LABS: Basophils # (A) 0.1 k/uL (0-0.2); Basophils % (A) 1 %; Eosinophils # (A) 0.3 k/uL (0-0.7); Eosinophils % (A) 3 %; HCT 43.1 % (34.0-46.0); Lymphocytes # (A) 1.7 k/uL (1.0-4.8); Lymphocytes % (A) 18 %; MCH 31.2 pg (25.0-35.0); MCHC 32.6 g/dL (31.0-37.0); MCV 95.7 fL (80.0-100.0); Mean Platelet Volume 8.2; Monocytes # (A) 0.5 k/uL (0-1.0); Monocytes % (A) 5 %; Neutrophils # (A) 6.9 k/uL (1.3-7.7); Neutrophils % (A) 72 %; Platelet Count 258 k/uL (150-450); RDW 13.9 % (11.5-15.5); WBC 9.6 k/uL (3.8-10.6)
[2019-12-13 12:47] LABS: Appearance,Urine Cloudy (Clear); Bacteria,Urine Many /hpf; Bilirubin,Urine Negative (Negative); Blood,Urine Negative (Negative); Color,Urine Yellow; Glucose,Urine (UA) Negative (Negative); Hyaline Casts,Urine 15 /lpf (0-2); Ketones,Urine Negative (Negative); Leukocyte Esterase,Urine Large (Negative); Mucus,Urine Rare /hpf; Nitrite,Urine Negative (Negative); Protein,Urine Trace (Negative); RBC,Urine 1 /hpf (0-5); Specific Gravity,Urine 1.013 (1.001-1.035); Squamous Epithelial Cell,Urine 1 /hpf (0-4); Urobilinogen,Urine <2.0 mg/dL (<2.0); WBC,Urine 53 /hpf (0-5)
[2019-12-13 12:52] LABS: INR 1.1 (<1.2); Partial Thromboplastin Time 25.9 sec (22.0-30.0)
[2019-12-13 12:56] LABS: ALT 11 U/L (4-34); AST 22 U/L (14-36); African American GFR (CKD) >90 (>60 ml/min/1.73 sqM); Albumin 3.5 g/dL (3.5-5.0); Alkaline Phosphatase 112 U/L (38-126); Anion Gap 8 mmol/L; Blood Urea Nitrogen 14 mg/dL (7-17); Calcium 10.2 mg/dL (8.4-10.2); Carbon Dioxide 27 mmol/L (22-30); Chloride 100 mmol/L (98-107); Glucose 157 mg/dL (74-99); Magnesium 1.8 mg/dL (1.6-2.3); Non-African American GFR(CKD) 80 (>60 ml/min/1.73 sqM); Potassium 3.9 mmol/L (3.5-5.1); Sodium 135 mmol/L (137-145); Total Bilirubin 0.6 mg/dL (0.2-1.3); Total Protein 5.9 g/dL (6.3-8.2)
--- NOTE | 2019-12-13 13:11 | XR ---
EXAMINATION TYPE: XR chest 2V DATE OF EXAM: 12/13/2019 COMPARISON: 08/14/2019 HISTORY: 84-year-old female with syncope TECHNIQUE: AP and lateral views FINDINGS: Slightly low lung volumes and crowded vascular markings. Heart borderline enlarged. Interstitial prom inence appears largely chronic. Tortuous/ectatic thoracic aorta. Degenerative change at both shoulder s. No brock consolidation or pleural effusion seen. IMPRESSION: Borderline heart size. Hypoventilatory changes. Interstitial prominence appears largely chronic, poss ible chronic bronchitis/asthma. No definite acute process.
[2019-12-13] MEDS ORDERED: cefTRIAXone IN SWFI 1,000 MG/10 ML SYRINGE IVP STA (13:25)
[2019-12-13] MEDS ORDERED: ACETAMINOPHEN TAB 325 MG TAB PO PRN ×2 (13:45→15:22)
[2019-12-13] MEDS ORDERED: NALOXONE 0.4 MG/ML 1 ML VIAL IV PRN (13:45)
[2019-12-13] MEDS ORDERED: [UNRECOGNIZED DRUG - OTHER] PO PRN (15:22)
[2019-12-13] MEDS ORDERED: NYSTATIN 100,000 UNIT/GM POWD 15 GM TOPICAL PRN (15:22)
[2019-12-13] MEDS ORDERED: MAG HYDROX/AL HYDROX/SIMETH 30 ML CUP PO PRN (15:22)
[2019-12-13] MEDS ORDERED: guaiFENesin SYRUP 100MG/5ML 200 MG/10 ML CUP PO PRN (15:22)
[2019-12-13] MEDS ORDERED: traMADol 50 MG TAB PO PRN (15:22)
[2019-12-13] MEDS ORDERED: MAGNESIUM HYDROXIDE 2,400 MG/10 ML CUP PO PRN (15:22)
[2019-12-13] MEDS: SODIUM CHLORIDE 0.9% 1,000 ML IV SCH (16:18)
--- NOTE | 2019-12-13 16:21 | P.HPIM ---
History of Present Illness H&P Date: 12/13/19 Chief Complaint: Syncope, UTI with sepsis, possible CVA, seizure, chronic pain syndrome, met 84-year-old female one of my patient of known for long time with multiple medical problem was hospitalized last in July this year for generalized weakness and possible syncope she had a 3 fall preop to admission with mild knee pain and discomfort. Patient is known to have history of hypertension hyperlipidemia chronic pain syndrome history of gastritis she is a former smoker who had previous history of TIA has been on Plavix also known to have chronic pain syndrome has been on [place] done and tramadol. Patient lives in assisted living who apparently according to the caregiver found to have with sluggish responsiveness not a clear whether she had full syncope or not no clear complain of tonic-clonic seizure patient was more confused in the therapeutic for. This time been was finally awaking Decline any chest pain at the time positive dizziness with lightheadedness mild shortness of breath no chest pain has been having more trouble with incontinence polyuria and strong smelling urine mild gastritis and mild abdominal pain on and off, her mobility has been decreased significantly patient is almost wheelchair bound. Patient ended up coming to the emergency department at [facility] where was seen and evaluated surprisingly found to have high lactic acid at 3.1 mild d ehydration with urine was very positive the time. 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 fib might require anticoagulation. Review of Systems CONSTITUTIONAL: Well-developed no acute respiratory distress. EYES: No icterus sclerae, no conjunctivitis. EARS, NOSE, MOUTH, THROAT, and FACE: No sore throat, lymphadenopathy, carotid bruits or deformity. RESPIRATORY: Positive shortness of breath no cough or wheezes. CARDIOVASCULAR: Positive PND orthopnea palpitations no clear angina.. GASTROINTESTINAL: Chronic gastritis with significant change in bowel habit on and off with recurrent epigastric pain and worsening heartburn. GENITOURINARY: Recurrent UTI with worsening incontinence lately. INTEGUMENT/BREAST: Negative for any muscular injury with mild osteoarthritis.. HEMATOLOGIC/LYMPHATIC: Negative for bleed or purpura. MUSCULOSKELTAL: Generalized muscle and back pain. NEURLOGICAL: No LOC, Sz or syncope, blurred vision dizziness or abnormality previous history of TIA with abnormal balance and gait with questionable of seizure. BEHAVIORAL/PSYCH: Negative. ENDOCRINE: Negative. Family history: Her father from prostate cancer, mother from CAD, patient had a brother with diabetes and prostate cancer another brother who had diabetes. 2 children with history of hypertension. Social history: She smoked 1 pack a day for over 20 years no code abuse she is has been living in assisted living lately does not use any CPAP or BiPAP: Past Medical History Past Medical History: GERD/Reflux, Hyperlipidemia, Hypertension, Musculoskeletal Disorder, Osteoarthritis (OA), Skin Disorder, Thyroid Disorder Additional Past Medical History / Comment(s): WOUND ON BUTTOCKS; PINCHED NERVE- AFFECTS LEGS, spinal stenosis History of Any Multi-Drug Resistant Organisms: None Reported Past Surgical History: Adenoidectomy, Appendectomy, Hernia Repair, Hysterectomy, Joint Replacement, Tonsillectomy Additional Past Surgical History / Comment(s): PRABHAKAR. KNEE REPLACEMENTS ,UMBILICAL HERNIA Past Anesthesia/Blood Transfusion Reactions: No Reported Reaction Past Psychological History: No Psychological Hx Reported Smoking Status: Never smoker Past Alcohol Use History: Occasional Past Drug Use History: None Reported - Past Family History Father Family Medical History: Cancer Additional Family Medical History / Comment(s): PROSTATE CA Brother(s) Family Medical History: Cancer, Diabetes Mellitus Additional Family Medical History / Comment(s): ONE BROTHER HAD PROSTATE CA & ANOTHER BROTHER HAS DIABETES Medications and Allergies Home Medications Medication Instructions Recorded Confirmed Type Levothyroxine Sodium [Levoxyl] 112 mcg PO DAILY@0600 07/08/13 12/13/19 History Cholecalciferol [Vitamin D3 (25 2,000 unit PO DAILY@0812/27/16 12/13/19 History Mcg = 1000 Iu)] Acetaminophen [Tylenol Arthritis] 650 mg PO Q4H PRN 08/14/19 12/13/19 History Atorvastatin [Lipitor] 20 mg PO HS@199908/14/19 12/13/19 History Clopidogrel [Plavix] 75 mg PO DAILY@79908/14/19 12/13/19 History Clotrimazole [Clotrimazole 1% Top 1 - 2 drops TOPICAL DAILY@199908/14/19 12/13/19 History Soln] Furosemide [Lasix] 20 mg PO DAILY@79908/14/19 12/13/19 History Abi-Lanta 630-829-59yh/5ml Susp 15 ml PO BID PRN 08/14/19 12/13/19 History Hydrocortisone Oint 1 applic TOPICAL BID PRN 08/14/19 12/13/19 History [Hydrocortisone 1% Oint] Kaolin/Pectin [Kaolin Pectin 30 ml PO DAILY PRN 08/14/19 12/13/19 History Suspension] Ketoconazole 2% Shampoo [Nizoral] 1 applic TOPICAL DAILY PRN 08/14/19 12/13/19 History Lansoprazole [Prevacid] 30 mg PO DAILY@0808/14/19 12/13/19 History Loperamide [Imodium] 2 mg PO DAILY@79908/14/19 12/13/19 History Losartan [Cozaar] 50 mg PO DAILY@79908/14/19 12/13/19 History Magnesium Hydroxide [Milk of 2,400 mg PO HS PRN 08/14/19 12/13/19 History Magnesia] Melatonin 10 mg PO HS@22008/14/19 12/13/19 History Menthol [Biofreeze] 1 applic TOPICAL QID PRN 08/14/19 12/13/19 History Multivitamins, Thera [Multivitamin 1 tab PO DAILY@199908/14/19 12/13/19 History (formulary)] Sucralfate [Carafate] 1 gm PO BID@0730,1630 08/14/19 12/13/19 History Tolnaftate [Tinactin] 1 applic TOPICAL BID PRN 08/14/19 12/13/19 History amLODIPine [Norvasc] 5 mg PO DAILY@0808/14/19 12/13/19 History guaiFENesin SYRUP 100MG/5ML 200 mg PO Q6H PRN 08/14/19 12/13/19 History [Robitussin] ursodioL [Ursodiol] 300 mg PO BID@0800,199908/14/19 12/13/19 History Buprenorphine [Butrans 10 MCG/HOUR] 1 patch TRANSDERM TU@0800 #1 patch 08/18/19 12/13/19 Rx Acetaminophen Tab [Tylenol] 650 mg PO Q4H PRN 12/13/19 12/13/19 History Ascorbic Acid [Vitamin C] 500 mg PO BID@0800,199912/13/19 12/13/19 History Caldesene Protecting Powder 1 applic TOPICAL BID@799,199912/13/19 12/13/19 History Menthol/Zinc Oxide [Calmoseptine 1 applic TOPICAL BID@08,199912/13/19 12/13/19 History Ointment] Potassium Chloride ER [K-Dur 20] 20 meq PO DAILY@0800 12/13/19 12/13/19 History Zinc Sulfate 220 mg PO DAILY@0800 12/13/19 12/13/19 History traMADol HCL 50 mg PO Q8HR PRN 12/13/19 12/13/19 History Allergies Allergy/AdvReac Type Severity Reaction Status Date / Time codeine AdvReac Nausea Verified 12/13/19 13:48 Physical Exam Vitals: Vital Signs Temp Pulse Resp BP Pulse Ox 12/13/19 14:40 63 16 109/56 94 L 12/13/19 14:20 60 20 108/59 96 12/13/19 13:50 73 18 95/78 94 L 12/13/19 13:40 71 15 112/79 94 L 12/13/19 13:20 69 24 122/70 93 L 12/13/19 13:10 63 18 119/50 95 12/13/19 13:00 64 20 116/61 95 12/13/19 12:40 68 21 116/61 94 L 12/13/19 12:30 65 18 122/49 93 L 12/13/19 12:20 68 18 122/49 94 L 12/13/19 12:10 65 18 118/92 92 L 12/13/19 12:00 63 19 107/57 92 L 12/13/19 11:57 97.4 F L 69 16 107/57 96 12/13/19 11:52 94 L Intake and Output 12/13/19 12/13/19 12/13/19 06:59 14:59 22:59 Other: Weight 92.986 kg General Appearance: Alert, cooperative, no distress, appears stated age. Neck HEENT: Supple, no lymphadenopathy, no thyroid enlargement, no carotid bruits. Lungs: Decreased breaths home a lot with fine rhonchi no crackles positive mild expiratory wheezes. Chest Wall: Decrease expansion with deep inspiration no tenderness and no def ormity was found on exam, no costochondral pain or discomfort. Heart: Regular rate and rhythm, S1, S2 positive history positive systolic murmur. Back: Severe scoliosis and kyphosis positive L-spine discomfort no rash currently there is a scar tissue in the back. Abdomen: Soft positive bowel sounds significant discomfort in epigastric area and right upper quadrant area no rebound or rigidity. Extremities: Trace edema significant arthritis both knees and hips with mild limitation Pulses: 2 decreased pulse bilaterally Skin: Skin color, texture, tugor normal, no rashes or lesions. Neurologic: Alert oriented with slight confusion current and reactive to 12 intact positive generalized weakness with no focal deficit been able to do gait exam. Results CBC & Chem 7: 12/13/19 12:33 12/13/19 12:33 Labs: Abnormal Lab Results - Last 24 Hours (Table) 12/13/19 12/13/19 12/13/19 Range/Units 12:33 12:33 12:33 Sodium 135 L (137-145) mmol/L Glucose 157 H (74-99) mg/dL Plasma Lactic Acid Juan A 3.1 H* (0.7-2.0) mmol/L Total Protein 5.9 L (6.3-8.2) g/dL Urine Appearance Cloudy H (Clear) Urine Protein Trace H (Negative) Ur Leukocyte Esterase Large H (Negative) Urine WBC 53 H (0-5) /hpf Urine Bacteria Many H (None) /hpf Hyaline Casts 15 H (0-2) /lpf Urine Mucus Rare H (None) /hpf Thrombosis Risk Factor Assmnt - DVT/VTE Prophylaxis DVT/VTE Prophylaxis: Mechanical Prophylaxis ordered Assessment and Plan Assessment: 1 syncope: Not clear etiology metabolic encephalopathy versus sepsis with UTI versus arrhythmia possible seizure and possible TIA, patient be hospitalized with try to rule out this possibility patient be on rail car operator currently Holter carotid were done recently we'll consult neurology and order an EEG. 2 TIA/CVA: No residual left at this point with patient been study before we watch patient closely continue neuro exam every 2 hours through the night until tomorrow morning was start PTOT and evaluate strength imbalance. 3 UTI/sepsis: With patient's urine culture is pending currently patient be on Rocephin 1 g daily for the next few days will switch to oral medication in 48 hours. 4 hypertension: Patient blood pressure was slightly bit low despite being on Norvasc along with losartan 50 mg daily dose might need to be adjusted eventually the blood pressures dropping down orthostatic was done and it is 10 mmHg drop only. 5 diastolic congestive heart failure: Remain on furosemide and losartan. 6 severe gastritis and GERD: Patient will be continue on Prevacid along with Carafate. 7 chronic gallstone: Patient was not interested doing surgery has been on Urosdiol 300 mg twice a day vacation to be continue. 8 hypothyroidism: Continue patient on levothyroxine 112 g daily. 9 hyperlipidemia: We'll continue Lipitor 20 mg daily. 10 chronic pain syndrome: Patient has been on Butran 10 mg patch along with tramadol as needed basis if not able to find any significant finding with curr ent episode this could be side effect medication including not limited to tramadol which will be fisher probably to switch tramadol to Tylenol 3 keep patient on Butran patch but may be at lower dose. 11 GI prophylaxis: Patient is on PPI. 12 DVT prophylaxis: Knee-high WENDIE hose and early mobilization. CODE STATUS: Full code. Admit patient to inpatient service for more than 2 night stay.
[2019-12-13] MEDS: SUCRALFATE 1 GM TAB PO SCH (17:12)
[2019-12-13] MEDS: MELATONIN 5 MG TABLET PO SCH (21:47)
[2019-12-13] MEDS: ursodioL 300 MG CAP PO SCH (21:48)
[2019-12-13] MEDS: MULTIVITAMINS, THERA 1 EACH TAB PO SCH (21:48)
[2019-12-13] MEDS: ASCORBIC ACID 500 MG TAB PO SCH (21:48)
[2019-12-13] MEDS: ATORVASTATIN 20 MG TAB PO SCH (21:49)
[2019-12-13] MEDS: MENTHOL-ZINC OXIDE OINT 113 GM TUBE TOPICAL SCH (21:49)
[2019-12-13] MEDS: ZINC OXIDE-CORN STARCH 142 GM POWDER TOPICAL SCH (21:49)
[2019-12-14] MEDS ORDERED: SUCRALFATE 1 GM TAB ONE (06:00)
[2019-12-14] MEDS ORDERED: LEVOTHYROXINE 112 MCG TAB ONE (06:00)
[2019-12-14] MEDS: LEVOTHYROXINE 112 MCG TAB PO SCH (06:16)
[2019-12-14] MEDS: SODIUM CHLORIDE 0.9% 1,000 ML IV SCH ×2 (06:17→17:52)
[2019-12-14] MEDS: SUCRALFATE 1 GM TAB PO SCH ×2 (06:53→17:47)
[2019-12-14] MEDS: CHOLECALCIFEROL 1,000 UNIT TAB PO SCH (08:01)
[2019-12-14] MEDS: ursodioL 300 MG CAP PO SCH ×2 (08:01→20:20)
[2019-12-14] MEDS: LOPERAMIDE 2 MG CAP PO SCH (08:01)
[2019-12-14] MEDS: amLODIPine 5 MG TAB PO SCH (08:01)
[2019-12-14] MEDS: FUROSEMIDE 20 MG TAB PO SCH (08:01)
[2019-12-14] MEDS: ZINC SULFATE 220 MG CAP PO SCH (08:01)
[2019-12-14] MEDS: ASCORBIC ACID 500 MG TAB PO SCH ×2 (08:01→20:20)
[2019-12-14] MEDS: POTASSIUM CHLORIDE ER 20 MEQ TAB.ER PO SCH (08:01)
[2019-12-14] MEDS: CLOPIDOGREL 75 MG TAB PO SCH (08:02)
[2019-12-14] MEDS: MENTHOL-ZINC OXIDE OINT 113 GM TUBE TOPICAL SCH ×2 (08:02→20:21)
[2019-12-14] MEDS: LOSARTAN 50 MG TAB PO SCH (08:02)
[2019-12-14] MEDS: PANTOPRAZOLE 40 MG TABLET PO SCH (08:02)
[2019-12-14] MEDS: ZINC OXIDE-CORN STARCH 142 GM POWDER TOPICAL SCH ×2 (09:00→20:21)
--- NOTE | 2019-12-14 13:16 | P.CRDCN ---
History of Present Illness History of present illness: HISTORY OF PRESENTING ILLNESS This is a pleasant 84-year-old female past medical history significant for hypertension, dyslipidemia, gastroesophageal reflux disease and osteoarthri tis. She denies prior history of coronary artery disease and does not follow regularly with a director patient financial services for any reason. We have been asked to see in consultation for syncope. She states yesterday morning she was gotten up from bed by her aids at [facility] and taken down to the dining room for breakfast. She was sitting in her wheelchair at the table and she had a brief few second episode of loss of consciousness. Prior to this happening she had no dizziness, lightheadedness, chest pain, shortness of breath, nausea, vomiting, diaphoresis or palpitations. This was witnessed by the brownfield redevelopment site manager of the facility where she lives. She had no seizure-like activity and no loss of bowel control. She st ates this happened to her in the past and usually happens when the aids at the facility get her up too fast. She underwent an echocardiogram in July of this year revealing preserved LV systolic function with ejection fraction 55-60% with mild MR. DIAGNOSTICS EKG reveals sinus mechanism with PVCs. Telemetry tracings unremarkable for an acute arrhythmia Chest xray no acute cardiopulmonary process with interstitial prominence noted that is largely chronic. Laboratory reviewed, CBC unremarkable, sodium 135, potassium 3.9, creatinine 0.69, lactic acid 3.1, repeat 1.6, cardiac enzymes negative 1. Current cardiac medications include amlodipine 5 mg daily, atorvastatin 20 mg daily, Plavix 75 mg daily, Lasix 20 mg daily and losartan 50 mg daily. REVIEW OF SYSTEMS At the time of my exam: CONSTITUTIONAL: Denies fever or chills. CARDIOVASCULAR: Denies chest pain, shortness of breath, orthopnea, PND or palpitations. RESPIRATORY: Denies cough. GASTROINTESTINAL: Denies abdominal pain, diarrhea, constipation, nausea or vomiting. MUSCULOSKELETAL: Denies myalgias. NEUROLOGIC: Denies numbness, tingling or weakness. ENDOCRINE: Denies fatigue, weight change, polydipsia or polyurina. GENITOURINARY: Denies burning, hematuria or urgency with micturation. HEMATOLOGIC: Denies history of anemia or bleeding. PHYSICAL EXAMINATION Blood pressure 141/63 heart rate 69 afebrile and maintaining oxygen saturation on room air. CONSTITUTIONAL: No apparent distress. HEENT: Head is normocephalic. Pupils are equal, round. Sclerae anicteric. Mucous membranes of the mouth are moist. No JVD. No carotid bruit. CHEST EXAMINATION: Lungs are clear to auscultation. No chest wall tenderness is noted on palpation or with deep breathing. HEART EXAMINATION: Regular rate and rhythm. S1, S2 heard. No murmurs, gallops or rub. ABDOMEN: Soft, nontender. Positive bowel sounds. EXTREMITIES: 2+ peripheral pulses, no lower extremity edema and no calf tenderness. NEUROLOGIC EXAMINATION: Patient is awake, alert and oriented x3. ASSESSMENT Syncope Lactic acidosis Urinary tract infection Hypertension Dyslipidemia TIA on plavix PLAN There's been no evidence of cardiac etiology for her syncope thus far. She can be discharged back to the [facility] with an outpatient event monitor. Thank you kindly for this consultation. Nurse Practitioner note has been reviewed, I agree with a documented findings and plan of care. Patient was seen and examined. Past Medical History Past Medical History: GERD/Reflux, Hyperlipidemia, Hypertension, Musculoskeletal Disorder, Osteoarthritis (OA), Skin Disorder, Thyroid Disorder Additional Past Medical History / Comment(s): WOUND ON BUTTOCKS; PINCHED NERVE- AFFECTS LEGS, spinal stenosis History of Any Multi-Drug Resistant Organisms: None Reported Past Surgical History: Adenoidectomy, Appendectomy, Hernia Repair, Hysterectomy, Joint Replacement, Tonsillectomy Additional Past Surgical History / Comment(s): PRABHAKAR. KNEE REPLACEMENTS ,UMBILICAL HERNIA Past Anesthesia/Blood Transfusion Reactions: No Reported Reaction Past Psychological History: No Psychological Hx Reported Smoking Status: Never smoker Past Alcohol Use History: Occasional Past Drug Use History: None Reported - Past Family History Father Family Medical History: Cancer Additional Family Medical History / Comment(s): PROSTATE CA Brother(s) Family Medical History: Cancer, Diabetes Mellitus Additional Family Medical History / Comment(s): ONE BROTHER HAD PROSTATE CA & ANOTHER BROTHER HAS DIABETES Medications and Allergies Home Medications Medication Instructions Recorded Confirmed Type Levothyroxine Sodium [Levoxyl] 112 mcg PO DAILY@0600 07/08/13 12/13/19 History Cholecalciferol [Vitamin D3 (25 2,000 unit PO DAILY@0800 12/27/16 12/13/19 History Mcg = 1000 Iu)] Acetaminophen [Tylenol Arthritis] 650 mg PO Q4H PRN 08/14/19 12/13/19 History Atorvastatin [Lipitor] 20 mg PO HS@199908/14/19 12/13/19 History Clopidogrel [Plavix] 75 mg PO DAILY@79908/14/19 12/13/19 History Clotrimazole [Clotrimazole 1% Top 1 - 2 drops TOPICAL DAILY@199908/14/19 12/13/19 History Soln] Furosemide [Lasix] 20 mg PO DAILY@79908/14/19 12/13/19 History Abi-Lanta [id number]/5ml Susp 15 ml PO BID PRN 08/14/19 12/13/19 History Hydrocortisone Oint 1 applic TOPICAL BID PRN 08/14/19 12/13/19 History [Hydrocortisone 1% Oint] Kaolin/Pectin [Kaolin Pectin 30 ml PO DAILY PRN 08/14/19 12/13/19 History Suspension] Ketoconazole 2% Shampoo [Nizoral] 1 applic TOPICAL DAILY PRN 08/14/19 12/13/19 History Lansoprazole [Prevacid] 30 mg PO DAILY@79908/14/19 12/13/19 History Loperamide [Imodium] 2 mg PO DAILY@79908/14/19 12/13/19 History Losartan [Cozaar] 50 mg PO DAILY@79908/14/19 12/13/19 History Magnesium Hydroxide [Milk of 2,400 mg PO HS PRN 08/14/19 12/13/19 History Magnesia] Melatonin 10 mg PO HS@219908/14/19 12/13/19 History Menthol [Biofreeze] 1 applic TOPICAL QID PRN 08/14/19 12/13/19 History Multivitamins, Thera [Multivitamin 1 tab PO DAILY@199908/14/19 12/13/19 History (formulary)] Sucralfate [Carafate] 1 gm PO BID@0730,1630 08/14/19 12/13/19 History Tolnaftate [Tinactin] 1 applic TOPICAL BID PRN 08/14/19 12/13/19 History amLODIPine [Norvasc] 5 mg PO DAILY@79908/14/19 12/13/19 History guaiFENesin SYRUP 100MG/5ML 200 mg PO Q6H PRN 08/14/19 12/13/19 History [Robitussin] ursodioL [Ursodiol] 300 mg PO BID@0800,199908/14/19 12/13/19 History Buprenorphine [Butrans 10 MCG/HOUR] 1 patch TRANSDERM TU@0800 #1 patch 08/18/19 12/13/19 Rx Acetaminophen Tab [Tylenol] 650 mg PO Q4H PRN 12/13/19 12/13/19 History Ascorbic Acid [Vitamin C] 500 mg PO BID@0800,199912/13/19 12/13/19 History Caldesene Protecting Powder 1 applic TOPICAL BID@08,199912/13/19 12/13/19 His tory Menthol/Zinc Oxide [Calmoseptine 1 applic TOPICAL BID@0800,199912/13/19 12/13/19 History Ointment] Potassium Chloride ER [K-Dur 20] 20 meq PO DAILY@0800 12/13/19 12/13/19 History Zinc Sulfate 220 mg PO DAILY@0800 12/13/19 12/13/19 History traMADol HCL 50 mg PO Q8HR PRN 12/13/19 12/13/19 History Allergies Allergy/AdvReac Type Severity Reaction Status Date / Time codeine AdvReac Nausea Verified 12/13/19 13:48 Physical Exam Vitals: Vital Signs Temp Pulse Pulse Resp BP BP Pulse Ox 12/14/19 07:59 98.4 F 69 18 141/63 93 L 12/14/19 04:00 98.7 F 69 18 134/66 95 12/14/19 02:50 72 18 12/14/19 00:00 98.4 F 72 18 139/66 96 12/13/19 20:00 98.7 F 74 16 131/69 97 12/13/19 15:47 98.3 F 16 131/60 95 12/13/19 14:40 63 16 109/56 94 L 12/13/19 14:20 60 20 108/59 96 12/13/19 13:50 73 18 95/78 94 L 12/13/19 13:40 71 15 112/79 94 L 12/13/19 13:20 69 24 122/70 93 L Intake and Output 12/13/19 12/14/19 12/14/19 22:59 06:59 14:59 Intake Total 236 240 Balance 236 240 Intake: Oral 236 240 Other: # Voids 0 0 Weight 92.986 kg Results 12/13/19 12:33 12/13/19 12:33 Cardiac Enzymes 12/13/19 Range/Units 12:33 Troponin I <0.012 (0.000-0.034) ng/mL Coagulation 12/13/19 Range/Units 12:33 PT 11.0 (9.0-12.0) sec APTT 25.9 (22.0-30.0) sec Current Medications Generic Name Dose Route Start Last Admin Trade Name Freq PRN Reason Stop Dose Admin Acetaminophen 650 mg 12/13/19 13:45 Acetaminophen Tab 325 Mg Tab PO Q6HR PRN Mild Pain or Fever > 100.5 Acetaminophen 650 mg 12/13/19 15:22 Acetaminophen Tab 325 Mg Tab PO Q4H PRN HEADACHE OR FEVER Al Hydroxide/Mg Hydroxide 15 ml 12/13/19 15:22 Mag Hydrox/Al Hydrox/Simeth 30 Ml Cup PO BID PRN Indigestion Amlodipine Besylate 5 mg 12/14/19 08:00 12/14/19 08:01 Amlodipine 5 Mg Tab PO 5 mg DAILY@0800 [facility] Administration Ascorbic Acid 500 mg 12/13/19 20:00 12/14/19 08:01 Ascorbic Acid 500 Mg Tab PO 500 mg BID@ [facility] Administration Atorvastatin Calcium 20 mg 12/13/19 20:00 12/13/19 21:49 Atorvastatin 20 Mg Tab PO 20 mg HS@1999 [facility] Administration Calamine/Phenol 1 applic 12/13/19 20:00 12/14/19 08:02 Menthol-Zinc Oxide Oint 113 Gm Tube TOPICAL 1 applic BID@ [facility] Administration Cholecalciferol 2,000 unit 12/14/19 08:00 12/14/19 08:01 Cholecalciferol 1,000 Unit Tab PO 2,000 unit DAILY@0800 [facility] Administration Clopidogrel Bisulfate 75 mg 12/14/19 08:00 12/14/19 08:02 Clopidogrel 75 Mg Tab PO 75 mg DAILY@0800 [facility] Administration Furosemide 20 mg 12/14/19 08:00 12/14/19 08:01 Furosemide 20 Mg Tab PO 20 mg DAILY@0800 [facility] Administration Guaifenesin 200 mg 12/13/19 15:22 Guaifenesin Syrup 100mg/5ml 200 Mg/10 Ml Cup PO Q6H PRN Cough Sodium Chloride 1,000 mls @ 75 mls/hr 12/13/19 13:45 12/14/19 06:17 Saline 0.9% IV Not Given .[id number] [facility] Ceftriaxone Sodium 1 gm/ 50 mls @ 100 mls/hr 12/14/19 06:00 12/14/19 06:16 Sodium Chloride IVPB Not Given Q12H [facility] Levothyroxine Sodium 112 mcg 12/14/19 06:00 12/14/19 06:16 Levothyroxine 112 Mcg Tab PO Not Given DAILY@0600 [facility] Loperamide HCl 2 mg 12/14/19 08:00 12/14/19 08:01 Loperamide 2 Mg Cap PO 2 mg DAILY@0800 [facility] Administration Losartan Potassium 50 mg 12/14/19 08:00 12/14/19 08:02 Losartan 50 Mg Tab PO 50 mg DAILY@0800 [facility] Administration Magnesium Hydroxide 2,400 mg 12/13/19 15:22 Magnesium Hydroxide 2,400 Mg/10 Ml Cup PO HS PRN Constipation Melatonin 10 mg 12/13/19 22:00 12/13/19 21:47 Melatonin 5 Mg Tablet PO 10 mg HS@2200 [facility] Administration Multivitamins 1 each 12/13/19 20:00 12/13/19 21:48 Multivitamins, Thera 1 Each Tab PO 1 each DAILY@1999 [facility] Administration Naloxone HCl 0.2 mg 12/13/19 13:45 Naloxone 0.4 Mg/Ml 1 Ml Vial IV Q2M PRN Opioid Reversal Buprenorphine [ 1 patch 12/15/19 08:00 Butrans 10 Mcg/Hour] TOPICAL 10 Mcg/Hour Patch. TU@0800 [facility] Tdwk) Nystatin 1 applic 12/13/19 15:22 Nystatin 100,000 Unit/Gm Powd 15 Gm TOPICAL BID PRN ITCHING/REDNESS Pantoprazole Sodium 40 mg 12/14/19 08:00 12/14/19 08:02 Pantoprazole 40 Mg Tablet PO 40 mg DAILY@0800 [facility] Administration Potassium Chloride 20 meq 12/14/19 08:00 12/14/19 08:01 Potassium Chloride Er 20 Meq Tab.Er PO 20 meq DAILY@0800 [facility] Administration Sucralfate 1 gm 12/13/19 16:30 12/14/19 06:53 Sucralfate 1 Gm Tab PO Not Given BID@0730,1630 [facility] Ursodiol 300 mg 12/13/19 20:00 12/14/19 08:01 Ursodiol 300 Mg Cap PO 300 mg BID@ [facility] Administration Zinc Oxide/Colonia Starch 1 applic 12/13/19 20:00 12/14/19 09:00 Zinc Oxide-[place] Starch 142 Gm Powder TOPICAL 1 applic BID@ [facility] Administration Zinc Sulfate 220 mg 12/14/19 08:00 12/14/19 08:01 Zinc Sulfate 220 Mg Cap PO 220 mg DAILY@0800 [facility] Administration Intake and Output 12/13/19 12/14/19 12/14/19 22:59 06:59 14:59 Intake Total 236 240 Balance 236 240 Intake: Oral 236 240 Other: # Voids 0 0 Weight 92.986 kg 12/13/19 12:33 12/13/19 12:33
--- NOTE | 2019-12-14 14:00 | EEG ---
ELECTROENCEPHALOGRAM REPORT DATE OF SERVICE: 12/14/2019 PREAMBLE: This is an 84-year-old female who presented with a syncopal spell. This study is performed to evaluate for any epileptiform activity. EEG FINDINGS: This is a 21 channel routine EEG utilizing 10-20 international system with referential and bipolar montages. Background consists of well developed, well regulated, moderate voltage activity in 8 hertz alpha. Background is posterior dominant and rhythm seems to be reactive to eye opening and closing. Photic driving response was not seen. Different stages of sleep were not seen. No focal or generalized epileptiform activity was seen. EKG rhythm lead revealed frequent PVCs. IMPRESSION: This is a normal awake EEG. No focal, lateralized, or epileptiform activity was seen. EKG rhythm lead revealed frequent PVCs. Clinical correlation is recommended. MMODL / IJN: [id number] /
--- NOTE | 2019-12-14 14:29 | P.CNNES ---
History of Present Illness Consult date: 12/14/19 Requesting physician: Nicholas Healy Reason for Consult: Seizure History of Present Illness: Patient is a 84-year-old female came to the hospital yesterday at 11:36 AM by ambulance from [facility] home due to complain of possible syncope. Patient tells me that she was getting into the wheelchair, when she went down to her knees. The nursing aides pulled her up and sat her back in the chair. She was taken to dining room and while she was there, a few minutes later, she had a syncopal spell. She states that she was out for only short while. As per EMS flow sheet, it was mentioned in the EMS flow sheet the staff brought her to the dining room for lunch when she started crying and saying she was feeling weak. She then slumped over in the wheelchair and staff was able to keep her upright and in her wheelchair without falling. Patient came to quickly but continued to complain about being very weak. Paisley stroke scale was negative. Patient was awake and alert and able to answer all questions. Patient placed on threat monitoring analyst showing normal sinus rhythm with frequent PVCs. Patient's vitals at the scene was blood pressure 154/85, pulse rate 82, respiration 18, saturation 96% and blood sugar 187 temperature 98.4. GCS 15. Patient had episodes like this in the past in which she is found to be dehydrated, UTI. According to ED report, it was also mentioned that patient has not been getting out of bed at the [facility] home secondary to 1 case of Covid. Patient has cough cold-like symptoms. No headache dizziness and blurred vision chest pain or shortness of breath. Vital signs on arrival blood pressure 107/57, pulse rate 60 and temperature 97.4. Chest x-ray showed borderline heart size. Hypoventilatory changes. Interstitial prominence appears largely chronic, possible chronic bronchitis /asthma. EKG shows sinus rhythm with occasional PVCs. Patient had a normal EEG on 12/29/2016, performed for "transient ischemic attack". Patient had a carotid Doppler on 08/15/2019, which revealed no significant stenosis in either ICA. Antegrade flow in both vertebral arteries. Patient had a 2-D echo on 08/15/2019, which revealed sinus rhythm, moderate concentric LVH, EF is 55-60%. Left atrial size is normal. Patient's last computed tomography scan of the head from 08/14/2019 was normal. Showed cerebral atrophy and chronic small vessel ischemia. No acute process. Prior MRI of the brain with and without contrast on 12/28/2016 was normal. Background of mild to moderate diffuse cerebral atrophy and advanced chronic small vessel ischemic change. Patient CTA of head and neck from 12/27/2016 showed minimal atherosclerotic disease. No evidence of hemodynamically significant stenosis. Normal CTA of the brain. Patient's CBC, PT/PTT is normal. Sodium 135 potassium 3.9, normal hepatic panel, and Arline with large leukocyte esterase and 53 WBCs and many bacteria. Patient diagnosed with weakness, syncope, UTI and lactic acidosis. Review of Systems Denies any abdominal pain nausea vomiting diarrhea. Denies any chest pain, shortness of breath. Denies any double vision loss of vision, hearing loss. Denies any problem with her vision. Patient has not walked for 1-1/2 years because her ankles are bad and knees are sore. She has tried physical therapy twice in the past. 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 She has problem with the shoulders. She has hypertension, denies diabetes she is a nonsmoker. All other review of systems reviewed and noncontributory. Past Medical History Past Medical History: GERD/Reflux, Hyperlipidemia, Hypertension, Musculoskeletal Disorder, Osteoarthritis (OA), Skin Disorder, Thyroid Disorder Additional Past Medical History / Comment(s): WOUND ON BUTTOCKS; PINCHED NERVE- AFFECTS LEGS, spinal stenosis History of Any Multi-Drug Resistant Organisms: None Reported Past Surgical History: Adenoidectomy, Appendectomy, Hernia Repair, Hysterectomy, Joint Replacement, Tonsillectomy Additional Past Surgical History / Comment(s): PRABHAKAR. KNEE REPLACEMENTS ,UMBILICAL HERNIA Past Anesthesia/Blood Transfusion Reactions: No Reported Reaction Past Psychological History: No Psychological Hx Reported Smoking Status: Never smoker Past Alcohol Use History: Occasional Past Drug Use History: None Reported - Past Family History Father Family Medical History: Cancer Additional Family Medical History / Comment(s): PROSTATE CA Brother(s) Family Medical History: Cancer, Diabetes Mellitus Additional Family Medical History / Comment(s): ONE BROTHER HAD PROSTATE CA & ANOTHER BROTHER HAS DIABETES Medications and Allergies Home Medications Medication Instructions Recorded Confirmed Type Levothyroxine Sodium [Levoxyl] 112 mcg PO DAILY@0600 05/14/14 10/18/20 History Cholecalciferol [Vitamin D3 (25 2,000 unit PO DAILY@79912/27/16 12/13/19 History Mcg = 1000 Iu)] Acetaminophen [Tylenol Arthritis] 650 mg PO Q4H PRN 08/14/19 12/13/19 History Atorvastatin [Lipitor] 20 mg PO HS@199908/14/19 12/13/19 History Clopidogrel [Plavix] 75 mg PO DAILY@79908/14/19 12/13/19 History Clotrimazole [Clotrimazole 1% Top 1 - 2 drops TOPICAL DAILY@199908/14/19 12/13/19 History Soln] Furosemide [Lasix] 20 mg PO DAILY@79908/14/19 12/13/19 History Abi-Lanta [id number]/5ml Susp 15 ml PO BID PRN 08/14/19 12/13/19 History Hydrocortisone Oint 1 applic TOPICAL BID PRN 08/14/19 12/13/19 History [Hydrocortisone 1% Oint] Kaolin/Pectin [Kaolin Pectin 30 ml PO DAILY PRN 08/14/19 12/13/19 History Suspension] Ketoconazole 2% Shampoo [Nizoral] 1 applic TOPICAL DAILY PRN 08/14/19 12/13/19 History Lansoprazole [Prevacid] 30 mg PO DAILY@79908/14/19 12/13/19 History Loperamide [Imodium] 2 mg PO DAILY@79908/14/19 12/13/19 History Losartan [Cozaar] 50 mg PO DAILY@79908/14/19 12/13/19 History Magnesium Hydroxide [Milk of 2,400 mg PO HS PRN 08/14/19 12/13/19 History Magnesia] Melatonin 10 mg PO HS@219908/14/19 12/13/19 History Menthol [Biofreeze] 1 applic TOPICAL QID PRN 08/14/19 12/13/19 History Multivitamins, Thera [Multivitamin 1 tab PO DAILY@199908/14/19 12/13/19 History (formulary)] Sucralfate [Carafate] 1 gm PO BID@0730,1630 08/14/19 12/13/19 History Tolnaftate [Tinactin] 1 applic TOPICAL BID PRN 08/14/19 12/13/19 History amLODIPine [Norvasc] 5 mg PO DAILY@0800 08/14/19 12/13/19 History guaiFENesin SYRUP 100MG/5ML 200 mg PO Q6H PRN 08/14/19 12/13/19 History [Robitussin] ursodioL [Ursodiol] 300 mg PO BID@0800,199908/14/19 12/13/19 History Buprenorphine [Butrans 10 MCG/HOUR] 1 patch TRANSDERM TU@0800 #1 patch 08/18/19 12/13/19 Rx Acetaminophen Tab [Tylenol] 650 mg PO Q4H PRN 12/13/19 12/13/19 History Ascorbic Acid [Vitamin C] 500 mg PO BID@0800,199912/13/19 12/13/19 History Caldesene Protecting Powder 1 applic TOPICAL BID@799,199912/13/19 12/13/19 History Menthol/Zinc Oxide [Calmoseptine 1 applic TOPICAL BID@08,199912/13/19 12/13/19 History Ointment] Potassium Chloride ER [K-Dur 20] 20 meq PO DAILY@0800 12/13/19 12/13/19 History Zinc Sulfate 220 mg PO DAILY@0800 12/13/19 12/13/19 History traMADol HCL 50 mg PO Q8HR PRN 12/13/19 12/13/19 History Allergies Allergy/AdvReac Type Severity Reaction Status Date / Time codeine AdvReac Nausea Verified 12/13/19 13:48 Physical Examination - Vital Signs Vital Signs: Vital Signs Temp Pulse Pulse Resp BP BP Pulse Ox 12/14/19 07:59 98.4 F 69 18 141/63 93 L 12/14/19 04:00 98.7 F 69 18 134/66 95 12/14/19 02:50 72 18 12/14/19 00:00 98.4 F 72 18 139/66 96 12/13/19 20:00 98.7 F 74 16 131/69 97 12/13/19 15:47 98.3 F 16 131/60 95 12/13/19 14:40 63 16 109/56 94 L 12/13/19 14:20 60 20 108/59 96 12/13/19 13:50 73 18 95/78 94 L 12/13/19 13:40 71 15 112/79 94 L 12/13/19 13:20 69 24 122/70 93 L 12/13/19 13:10 63 18 119/50 95 12/13/19 13:00 64 20 116/61 95 12/13/19 12:40 68 21 116/61 94 L 12/13/19 12:30 65 18 122/49 93 L 12/13/19 12:20 68 18 122/49 94 L 12/13/19 12:10 65 18 118/92 92 L 12/13/19 12:00 63 19 107/57 92 L 12/13/19 11:57 97.4 F L 69 16 107/57 96 12/13/19 11:52 94 L Intake and Output 12/13/19 12/14/19 12/14/19 22:59 06:59 14:59 Intake Total 236 240 Balance 236 240 Intake: Oral 236 240 Other: # Voids 0 0 Weight 92.986 kg On examination patient is an elderly female, in no acute distress. Patient is alert awake fully oriented. Speech and language functions are normal. Attention and concentration fund of knowledge is adequate for her age. On cranial examination pupils are round and reacting to light. Visual ryan are full on confrontation. Extraocular muscles are intact, no nystagmus. Face is symmetric, tongue protrudes the midline. Palatal elevation and sensation normal. Hearing and shoulder shrug normal. Facial sensation normal. On muscle strength testing the strength is right/left, deltoid 5/sore, biceps 5/5, triceps 4/5, volunteer services director 5/5 hip flexion 3-4/3-4, ankle dorsiflexion 5/5. Reflexes are 2 in the upper limbs, absent at the knees, 1 at ankles and plantars are downgoing. Sensory touch is equal with no neglect. No obvious ataxia. Tone and bulk of muscles normal. Patient is not ambulatory. He is no obvious bruit, S1 and S2 audible, abdomen soft nontender. Results - Laboratory Findings CBC and BMP: 12/13/19 12:33 12/13/19 12:33 Abnormal Lab Findings: Abnormal Labs 12/13/19 12/13/19 12/13/19 12:33 12:33 12:33 Sodium 135 L Glucose 157 H Plasma Lactic Acid Juan A 3.1 H* Total Protein 5.9 L Urine Appearance Cloudy H Urine Protein Trace H Ur Leukocyte Esterase Large H Urine WBC 53 H Urine Bacteria Many H Hyaline Casts 15 H Urine Mucus Rare H Assessment and Plan Assessment: * Syncopal spell, likely vasovagal. Seizure extremely unlikely * Abnormal UA, Possible UTI. * History of TIA, on Plavix * Hypertension * CHF * Chronic pain Plan: * Patient had an EEG performed today, which is normal. * No other neurological workup indicated. Patient already had extensive workup performed in the last couple years as mentioned above. * Continue Plavix and Lipitor 20 mg. * Patient on Rocephin for UTI. * Neurologically clear.
--- NOTE | 2019-12-14 14:43 | P.PN ---
Subjective Progress Note Date: 12/14/19 HISTORY OF PRESENT ILLNESS 84-year-old female one of my patient of known for long time with multiple medical problem was hospitalized last in July this year for generalized weakness and possible syncope she had a 3 fall preop to admission with mild knee pain and discomfort. Patient is known to have history of hypertension hyperlipidemia chronic pain syndrome history of gastritis she is a former smoker who had previous history of TIA has been on Plavix also known to have chronic pain syndrome has been on [place] done and tramadol. Patient lives in assisted living who apparently according to the caregiver found to have with sluggish responsiveness not a clear whether she had full syncope or not no clear complain of tonic-clonic seizure patient was more confused in the therapeutic for. This time been was finally awaking Decline any chest pain at the time positive dizziness with lightheadedness mild shortness of breath no chest pain has been having more trouble with incontinence polyuria and strong smelling urine mild gastritis and mild abdominal pain on and off, her mobility has been decreased significantly patient is almost wheelchair bound. Patient ended up coming to the emergency department at [facility] where was seen and evaluated surprisingly found to have high lactic acid at 3.1 mild dehydration with urine was very positive the time. Patient was giving 1 g of Rocephin will be admitted to the hospital will be seen urology going for an EEG also be seen cardiology keep watching patient on quality management coordinator see if there is any finding consistent with A. fib might require anticoagulation. 12/13: Patient denies any new complaints. She is currently off tramadol and Butran to be at a lower dose at the time of discharge. She has been seen by cardiology with no evidence of cardiac cause for syncope. Plan is for event monitor at the time of discharge. She has also been seen by neurology and syncopal spell likely vasovagal, seizure extremely unlikely. EEG came back normal. Recommendations to continue Plavix and Lipitor. Patient is concerned about gallstones and gallbladder ultrasound will be ordered. Blood culture is status post received. REVIEW OF SYSTEMS CONSTITUTIONAL: Well-developed no acute respiratory distress. EYES: No icterus sclerae, no conjunctivitis. EARS, NOSE, MOUTH, THROAT, and FACE: No sore throat, lymphadenopathy, carotid bruits or deformity. RESPIRATORY: Positive shortness of breath no cough or wheezes. CARDIOVASCULAR: Positive PND orthopnea palpitations no clear angina.. GASTROINTESTINAL: Chronic gastritis with significant change in bowel habit on and off with recurrent epigastric pain and worsening heartburn. GENITOURINARY: Recurrent UTI with worsening incontinence lately. INTEGUMENT/BREAST: Negative for any muscular injury with mild osteoarthritis.. HEMATOLOGIC/LYMPHATIC: Negative for bleed or purpura. MUSCULOSKELTAL: Generalized muscle and back pain. NEURLOGICAL: No LOC, Sz or syncope, blurred vision dizziness or abnormality previous history of TIA with abnormal balance and gait with questionable of seizure. BEHAVIORAL/PSYCH: Negative. ENDOCRINE: Negative. PHYSICAL EXAMINATION General Appearance: Alert, cooperative, no distress, appears stated age. Neck HEENT: Supple, no lymphadenopathy, no thyroid enlargement, no carotid brui ts. Lungs: Decreased breaths home a lot with fine rhonchi no crackles positive mild expiratory wheezes. Chest Wall: Decrease expansion with deep inspiration no tenderness and no deformity was found on exam, no costochondral pain or discomfort. Heart: Regular rate and rhythm, S1, S2 positive history positive systolic murmur. Back: Severe scoliosis and kyphosis positive L-spine discomfort no rash cu rrently there is a scar tissue in the back. Abdomen: Soft positive bowel sounds significant discomfort in epigastric area and right upper quadrant area no rebound or rigidity. Extremities: Trace edema significant arthritis both knees and hips with mild limitation Pulses: 2 decreased pulse bilaterally Skin: Skin color, texture, tugor normal, no rashes or lesions. Neurologic: Alert oriented with slight confusion current and reactive to 12 intact positive generalized weakness with no focal deficit been able to do gait exam. ASSESSMENT AND PLAN 1 syncope possibly vasovagal. Cardiology is planning for event monitor at the time of discharge. 2 TIA/CVA ruled out by neurology. 3 UTI. Continue Rocephin 1 g daily. 4 hypertension. Continue Norvasc 5 mg daily with losartan 50 mg daily daily. 5 chronic diastolic heart failure. Continue furosemide and losartan. 6 severe gastritis and GERD: Patient will be continue on Prevacid along with Carafate. 7 chronic gallstone: Patient was not interested doing surgery has been on Urosdiol 300 mg twice a day vacation to be continue. Obtain gallbladder ultrasound. 8 hypothyroidism: Continue patient on levothyroxine 112 g daily. 9 hyperlipidemia: We'll continue Lipitor 20 mg daily. 10 chronic pain syndrome: Patient has been on Butran 10 mg patch along with tramadol as needed basis if not able to find any significant finding with current episode this could be side effect medication including not limited to tramadol which will be fisher probably to switch tramadol to Tylenol 3 keep patient on Butran patch but may be at lower dose. 11 GI prophylaxis: Patient is on PPI. 12 DVT prophylaxis: Knee-high WENDIE hose and early mobilization. CODE STATUS: NO code. DISCHARGE PLAN Most likely return to [facility] tomorrow or Saturday. Impression and plan of care have been directed as dictated by the signing physician. Marquita Ridley nurse practitioner acting as scribe for signing physician. Objective - Vital Signs Vital signs: Vital Signs Temp 98.4 F 12/14/19 07:59 Pulse 69 12/14/19 07:59 Resp 18 12/14/19 07:59 BP 141/63 12/14/19 07:59 Pulse Ox 93 L 12/14/19 07:59 Intake & Output 12/13/19 12/14/19 12/14/19 18:59 06:59 18:59 Intake Total 236 Balance 236 Weight 92.986 kg Intake: Oral 236 Other: # Voids 0 0 - Labs CBC & Chem 7: 12/13/19 12:33 12/13/19 12:33 Labs: Abnormal Lab Results - Last 24 Hours (Table) 12/13/19 12/13/19 12/13/19 Range/Units 12:33 12:33 12:33 Sodium 135 L (137-145) mmol/L Glucose 157 H (74-99) mg/dL Plasma Lactic Acid Juan A 3.1 H* (0.7-2.0) mmol/L Total Protein 5.9 L (6.3-8.2) g/dL Urine Appearance Cloudy H (Clear) Urine Protein Trace H (Negative) Ur Leukocyte Esterase Large H (Negative) Urine WBC 53 H (0-5) /hpf Urine Bacteria Many H (None) /hpf Hyaline Casts 15 H (0-2) /lpf Urine Mucus Rare H (None) /hpf
--- NOTE | 2019-12-14 14:54 | US ---
EXAMINATION TYPE: US gallbladder DATE OF EXAM: 12/14/2019 COMPARISON: US 08/18/2019 CLINICAL HISTORY: Gallstones. Very difficult and limited exam due to patient body habitus and overlyi ng bowel gas EXAM MEASUREMENTS: Liver Length: 15.4 cm Gallbladder Wall: 0.2 cm CBD: 1.0 cm Right Kidney: 8.1 x 4.7 x 3.8 cm Pancreas: Obscured by bowel gas Liver: Very limited evaluation. Heterogeneous Gallbladder: Appears to be packed with stones. Evidence for sonographic Oconnor's sign: no CBD: Dilated Right Kidney: Limited evaluation. No hydronephrosis IMPRESSION: The exam is limited. Correlate for possible hepatic steatosis, hepatitis. Suspect choleli thiasis, wall echo shadow sign. Common bile duct appears dilated. Consider gastroenterology consult
[2019-12-14] MEDS: ATORVASTATIN 20 MG TAB PO SCH (20:20)
[2019-12-14] MEDS: MULTIVITAMINS, THERA 1 EACH TAB PO SCH (20:20)
[2019-12-14 21:22] VITALS: RESP 18
[2019-12-14] MEDS: MELATONIN 5 MG TABLET PO SCH (22:40)
[2019-12-15] MEDS: SODIUM CHLORIDE 0.9% 1,000 ML IV SCH (06:16)
[2019-12-15] MEDS: LEVOTHYROXINE 112 MCG TAB PO SCH (06:18)
[2019-12-15] MEDS: SUCRALFATE 1 GM TAB PO SCH (06:20)
[2019-12-15] MEDS ORDERED: BUPRENORPHINE TOPICAL SCH (08:00)
--- NOTE | 2019-12-15 08:41 | P.DS ---
Providers Date of admission: 12/13/19 13:41 Expected date of discharge: 12/15/19 Attending physician: Rashawn Lau Consults: 12/13/19 13:53 Consult Physician Routine Consulting Provider: Bon Luevano Consult Reason/Comments: sz Do you want consulting provider notified?: Yes Consult Physician Urgent Consulting Provider: Breanna Grimes Consult Reason/Comments: syncope Do you want consulting provider notified?: Yes Primary care physician: Rashawn [facility] Course: HISTORY OF PRESENT ILLNESS 84-year-old female one of my patient of known for long time with multiple medical problem was hospitalized last in July this year for generalized weakness and possible syncope she had a 3 fall preop to admission with mild knee pain and discomfort. Patient is known to have history of hypertension hyperlipidemia chronic pain syndrome history of gastritis she is a former smoker who had previous history of TIA has been on Plavix also known to have chronic pain syndrome has been on [place] done and tramadol. Patient lives in assisted living who apparently according to the caregiver found to have with sluggish responsiveness not a clear whether she had full syncope or not no clear complain of tonic-clonic seizure patient was more confused in the therapeutic for. This time been was finally awaking Decline any chest pain at the time positive dizziness with lightheadedness mild shortness of breath no chest pain has been having more trouble with incontinence polyuria and strong smelling urine mild gastritis and mild abdominal pain on and off, her mobility has been decreased significantly patient is almost wheelchair bound. Patient ended up coming to the emergency department at [facility] where was seen and evaluated surprisingly found to have high lactic acid at 3.1 mild dehydration with urine was very positive the time. Patient was giving 1 g of Rocephin will be admitted to the hospital will be seen urology going for an EEG also be seen cardiology keep watching patient on director cardiac see if there is any finding consistent with A. fib might require anticoagulation. 12/13: Patient denies any new complaints. She is currently off tramadol and Butran to be at a lower dose at the time of discharge. She has been seen by cardiology with no evidence of cardiac cause for syncope. Plan is for event monitor at the time of discharge. She has also been seen by neurology and syncopal spell likely vasovagal, seizure extremely unlikely. EEG came back normal. Recommendations to continue Plavix and Lipitor. Patient is concerned about gallstones and gallbladder ultrasound will be ordered. Blood culture is status post received. 12/14: Gallbladder ultrasound reveals correlate for possible hepatic steatosis, hepatitis. Suspect cholelithiasis. Common bile duct appears dilated. Considered GI consult. Patient has been followed by cardiology and event monitor will be arranged through the office. Patient denies any new complaints and is anxious to be discharged. Recommendations for pain medication adjustment as below. training project manager has arranged for [facility]. Ceftin prescription will be sent to her pharmacy. She has been afebrile, heart rate 68, blood pressure 125/60, pulse ox 93% on room air. ASSESSMENT AND PLAN 1 syncope possibly vasovagal most likely secondary to tramadol and Butrans. Recommend discontinuing tramadol completely and decreasing Butrans to 7.5 g per hour. 2 TIA/CVA ruled out by neurology. 3 UTI. 4 hypertension. 5 chronic diastolic heart failure. 6 severe gastritis and GERD 7 chronic gallstone 8 hypothyroidism 9 hyperlipidemia 10 chronic pain syndrome: Patient has been on Butran 10 mg patch along with tramadol as needed basis if not able to find any significant finding with current episode this could be side effect medication including not limited to tramadol which will be fisher probably to switch tramadol to Tylenol 3 keep patient on Butran patch but may be at lower dose. DISCHARGE PLAN Return to [facility] Impression and plan of care have been directed as dictated by the signing physician. Marquita Ridley nurse practitioner acting as scribe for signing physician Patient Condition at Discharge: Fair Plan - Discharge Summary Discharge Rx Participant: Yes New Discharge Prescriptions: New Cefuroxime [Ceftin] 250 mg PO BID 5 Days #10 tab Continue Levothyroxine Sodium [Levoxyl] 112 mcg PO DAILY@0600 Cholecalciferol [Vitamin D3 (25 Mcg = 1000 Iu)] 2,000 unit PO DAILY@0800 Tolnaftate [Tinactin] 1 applic TOPICAL BID PRN PRN Reason: ITCHING/REDNESS Hydrocortisone Oint [Hydrocortisone 1% Oint] 1 applic TOPICAL BID PRN PRN Reason: Skin Irritation guaiFENesin SYRUP 100MG/5ML [Robitussin] 200 mg PO Q6H PRN PRN Reason: Cough Magnesium Hydroxide [Milk of Magnesia] 2,400 mg PO HS PRN PRN Reason: Constipation Acetaminophen [Tylenol Arthritis] 650 mg PO Q4H PRN PRN Reason: Pain Ketoconazole 2% Shampoo [Nizoral] 1 applic TOPICAL DAILY PRN PRN Reason: DRY SCALP Kaolin/Pectin [Kaolin Pectin Suspension] 30 ml PO DAILY PRN PRN Reason: Diarrhea Menthol [Biofreeze] 1 applic TOPICAL QID PRN PRN Reason: Pain Sucralfate [Carafate] 1 gm PO BID@0730,1630 Melatonin 10 mg PO HS@2200 Losartan [Cozaar] 50 mg PO DAILY@0800 Loperamide [Imodium] 2 mg PO DAILY@0800 Lansoprazole [Prevacid] 30 mg PO DAILY@0800 Furosemide [Lasix] 20 mg PO DAILY@0800 Multivitamins, Thera [Multivitamin (formulary)] 1 tab PO DAILY@1999 Clotrimazole [Clotrimazole 1% Top Soln] 1 - 2 drops TOPICAL DAILY@1999 Clopidogrel [Plavix] 75 mg PO DAILY@0800 amLODIPine [Norvasc] 5 mg PO DAILY@0800 Atorvastatin [Lipitor] 20 mg PO HS@1999 Abi-Lanta [id number]/5ml Susp 15 ml PO BID PRN PRN Reason: Indigestion Buprenorphine [Butrans 10 MCG/HOUR] 1 patch TRANSDERM TU@0800 #1 patch Acetaminophen Tab [Tylenol] 650 mg PO Q4H PRN PRN Reason: HEADACHE OR FEVER Zinc Sulfate 220 mg PO DAILY@0800 Ascorbic Acid [Vitamin C] 500 mg PO BID@799,1999 Potassium Chloride ER [K-Dur 20] 20 meq PO DAILY@0800 Menthol/Zinc Oxide [Calmoseptine Ointment] 1 applic TOPICAL BID@799,1999 Caldesene Protecting Powder 1 applic TOPICAL BID@799,1999 Discontinued ursodioL [Ursodiol] 300 mg PO BID@799,1999 traMADol HCL 50 mg PO Q8HR PRN PRN Reason: Pain Discharge Medication List Levothyroxine Sodium [Levoxyl] 112 mcg PO DAILY@0600 07/08/13 [History] Cholecalciferol [Vitamin D3 (25 Mcg = 1000 Iu)] 2,000 unit PO DAILY@0800 12/27/16 [History] Acetaminophen [Tylenol Arthritis] 650 mg PO Q4H PRN 08/14/19 [History] Atorvastatin [Lipitor] 20 mg PO HS@199908/14/19 [History] Clopidogrel [Plavix] 75 mg PO DAILY@79908/14/19 [History] Clotrimazole [Clotrimazole 1% Top Soln] 1 - 2 drops TOPICAL DAILY@199908/14/19 [History] Furosemide [Lasix] 20 mg PO DAILY@79908/14/19 [History] Abi-Lanta [phone]/5ml Susp 15 ml PO BID PRN 08/14/19 [History] Hydrocortisone Oint [Hydrocortisone 1% Oint] 1 applic TOPICAL BID PRN 08/14/19 [History] Kaolin/Pectin [Kaolin Pectin Suspension] 30 ml PO DAILY PRN 08/14/19 [History] Ketoconazole 2% Shampoo [Nizoral] 1 applic TOPICAL DAILY PRN 08/14/19 [History] Lansoprazole [Prevacid] 30 mg PO DAILY@79908/14/19 [History] Loperamide [Imodium] 2 mg PO DAILY@79908/14/19 [History] Losartan [Cozaar] 50 mg PO DAILY@79908/14/19 [History] Magnesium Hydroxide [Milk of Magnesia] 2,400 mg PO HS PRN 08/14/19 [History] Melatonin 10 mg PO HS@219908/14/19 [History] Menthol [Biofreeze] 1 applic TOPICAL QID PRN 08/14/19 [History] Multivitamins, Thera [Multivitamin (formulary)] 1 tab PO DAILY@199908/14/19 [History] Sucralfate [Carafate] 1 gm PO BID@0730,1630 08/14/19 [History] Tolnaftate [Tinactin] 1 applic TOPICAL BID PRN 08/14/19 [History] amLODIPine [Norvasc] 5 mg PO DAILY@79908/14/19 [History] guaiFENesin SYRUP 100MG/5ML [Robitussin] 200 mg PO Q6H PRN 08/14/19 [History] Buprenorphine [Butrans 10 MCG/HOUR] 1 patch TRANSDERM TU@0800 #1 patch 08/18/19 [Rx] Acetaminophen Tab [Tylenol] 650 mg PO Q4H PRN 10/18/20 [History] Ascorbic Acid [Vitamin C] 500 mg PO BID@799,199912/13/19 [History] Caldesene Protecting Powder 1 applic TOPICAL BID@799,199912/13/19 [History] Menthol/Zinc Oxide [Calmoseptine Ointment] 1 applic TOPICAL BID@799,199912/13/19 [History] Potassium Chloride ER [K-Dur 20] 20 meq PO DAILY@79912/13/19 [History] Zinc Sulfate 220 mg PO DAILY@79912/13/19 [History] Cefuroxime [Ceftin] 250 mg PO BID 5 Days #10 tab 12/15/19 [Rx] Follow up Appointment(s)/Referral(s): Yue Mcallister MD [STAFF PHYSICIAN] - 1 Week (Waiter/Waitress Second Class- office will call with a follow up appointment. ) Rashawn Lau MD [Primary Care Provider] - Liam Malone MD [REFERRING] - 1 Week (Dr. Malone notified about discharge. Office will call with a follow up appointment.) Patient Instructions/Handouts: Urinary Tract Infection in Women (DC), Syncope (DC) Activity/Diet/Wound Care/Special Instructions: [facility]. Discharge Disposition: HOME WITH HOME HEALTH SERVICES
[2019-12-15 08:45] VITALS: BP 125/60; PULSE 68; TEMP 98.9
[2019-12-15] MEDS: CHOLECALCIFEROL 1,000 UNIT TAB PO SCH (08:45)
[2019-12-15] MEDS: LOPERAMIDE 2 MG CAP PO SCH (08:45)
[2019-12-15] MEDS: ursodioL 300 MG CAP PO SCH (08:45)
[2019-12-15] MEDS: ASCORBIC ACID 500 MG TAB PO SCH (08:45)
[2019-12-15] MEDS: POTASSIUM CHLORIDE ER 20 MEQ TAB.ER PO SCH (08:45)
[2019-12-15] MEDS: amLODIPine 5 MG TAB PO SCH (08:45)
[2019-12-15] MEDS: LOSARTAN 50 MG TAB PO SCH (08:45)
[2019-12-15] MEDS: ZINC SULFATE 220 MG CAP PO SCH (08:45)
[2019-12-15] MEDS: FUROSEMIDE 20 MG TAB PO SCH (08:45)
[2019-12-15] MEDS: CLOPIDOGREL 75 MG TAB PO SCH (08:46)
[2019-12-15] MEDS: MENTHOL-ZINC OXIDE OINT 113 GM TUBE TOPICAL SCH (08:46)
[2019-12-15] MEDS: ZINC OXIDE-CORN STARCH 142 GM POWDER TOPICAL SCH (08:46)
[2019-12-15] MEDS: PANTOPRAZOLE 40 MG TABLET PO SCH (08:46)
--- NOTE | 2019-12-16 02:05 | CDI ---
Documentation Clarification Form Date: 12/16/2019 From: Marvin Mcallister Phone: If you have a question about this query, please contact Aggie Smiley, Sales Agent [employer] at [phone] between 8am and 5pm. Admit Date: 12/13/2019 Discharge Date: 12/15/2019 Patient Name: Bridgette Bernal Visit Number: [id number] ATTENTION: The Clinical Documentation Specialists (CDI) and [facility] Coding Staff appreciate your assistance in clarifying documentation. Please respond to the clarification below the line at the bottom and electronically sign. The CDI & [facility] Coding staff will review the response and follow-up if needed. Please note: Queries are made part of the Legal Health Record. If you have any questions, please contact the author of this message via ITS. Dear Rashawn Zeng MD., The patient presented with the Syncope and UTI History/Risk Factors: CHF, Chronic pain syndrome. Hypothyroidism WBC :9.6 Lactic acid: 3.1 Blood cultures: NG48 Vitals signs on admission: Temperature 97.4 F L Pulse Rate 69 Respiratory 16 Rate Blood Pressure 107/57 O2 Sat by Pulse 96 Oximetry Treatment: Rocephin 1 g daily PER H&P stated " UTI/sepsis: With patient's urine culture is pending currently patient be on Rocephin 1 g daily for the next few days will switch to oral medication in 48 hours". Per DS stated only UTI and syncope possibly vasovagal most likely secondary to tramadol and Butrans.Recommend discontinuing tramadol completely and decreasing Butrans to 7.5 g per hour. In your professional opinion, please clarify if these findings signify one of the following conditions, Condition Sepsis ruled out Sepsis xx Other, please specify _UTI without sepsis Unable to determine MTDD
== END 2019-12-15 13:32 | disposition home or self-care (01) | DRG 690 ==
LOC: EC 11:36 → 3SCARD 13:41
PROVIDERS: ADMIT Internal Medicine Geriatric Medicine; ATTEND Internal Medicine Geriatric Medicine
DX: N39.0 Urinary tract infection, site not specified (principal); I50.32 Chronic diastolic (congestive) heart failure; E87.2 Acidosis; K21.9 Gastro-esophageal reflux disease without esophagitis; E03.9 Hypothyroidism, unspecified; E78.5 Hyperlipidemia, unspecified; M19.90 Unspecified osteoarthritis, unspecified site; G89.4 Chronic pain syndrome; E86.0 Dehydration; I11.0 Hypertensive heart disease with heart failure; M48.00 Spinal stenosis, site unspecified; Z96.653 Presence of artificial knee joint, bilateral; I49.3 Ventricular premature depolarization; K29.70 Gastritis, unspecified, without bleeding; K80.20 Calculus of gallbladder without cholecystitis without obstruction; R55 Syncope and collapse; Z79.02 Long term (current) use of antithrombotics/antiplatelets; Z79.890 Hormone replacement therapy; Z79.899 Other long term (current) drug therapy; Z88.5 Allergy status to narcotic agent; Z90.49 Acquired absence of other specified parts of digestive tract; Z98.890 Other specified postprocedural states; Z86.73 Personal history of transient ischemic attack (TIA), and cerebral infarction without residual deficits; Z87.891 Personal history of nicotine dependence; Z90.710 Acquired absence of both cervix and uterus; Z83.3 Family history of diabetes mellitus; Z82.49 Family history of ischemic heart disease and other diseases of the circulatory system; Z80.42 Family history of malignant neoplasm of prostate
CPT/HCPCS: 36415; 71046; 76705; 80053; 81001; 83605; 83735; 84484; 85025; 85610; 85730; 87040; 93005; 95816; 96360; 96361; 99285

== ENCOUNTER → 2023-10-10 | Outpatient (CLI) | payer MEDICARE | END | disposition home or self-care (01) | LOC: LABPRL 10:08 | PROVIDERS: ATTEND Internal Medicine Geriatric Medicine | DX: I11.0 Hypertensive heart disease with heart failure (principal); I50.30 Unspecified diastolic (congestive) heart failure; G89.29 Other chronic pain; M13.0 Polyarthritis, unspecified; K80.10 Calculus of gallbladder with chronic cholecystitis without obstruction; E66.01 Morbid (severe) obesity due to excess calories; L08.9 Local infection of the skin and subcutaneous tissue, unspecified; N21.8 Other lower urinary tract calculus; Z16.12 Extended spectrum beta lactamase (ESBL) resistance; R94.5 Abnormal results of liver function studies; F11.90 Opioid use, unspecified, uncomplicated; I67.9 Cerebrovascular disease, unspecified; L03.032 Cellulitis of left toe; E78.5 Hyperlipidemia, unspecified; Z23 Encounter for immunization; B35.1 Tinea unguium; R13.12 Dysphagia, oropharyngeal phase; M62.81 Muscle weakness (generalized); E03.9 Hypothyroidism, unspecified; E55.9 Vitamin D deficiency, unspecified; E87.6 Hypokalemia; G47.00 Insomnia, unspecified; K21.9 Gastro-esophageal reflux disease without esophagitis; K59.00 Constipation, unspecified; Z20.822 Contact with and (suspected) exposure to COVID-19; Z86.14 Personal history of Methicillin resistant Staphylococcus aureus infection; Z86.16 Personal history of COVID-19; Z86.73 Personal history of transient ischemic attack (TIA), and cerebral infarction without residual deficits; Z87.440 Personal history of urinary (tract) infections | CPT/HCPCS: 87086 ==